=== PATIENT | male | born 1940 | race Caucasian/White ===

== ENCOUNTER 2016-07-29 10:38 | Outpatient (RCR) | payer OTHER ==
[~2016-07-29 10:38] MED LIST: ASPI1TAB PO; BACI500O8 TOP; JANU100T PO; LIPI20TA PO; NEUR300C PO; OMEP40CA2 PO; OXYC1TAB23 PO; STOO100C PO
== END 2016-08-10 ==
LOC: M ST 10:38
PROVIDERS: ATTEND Otolaryngology
DX: R13.10 Dysphagia, unspecified (principal)

== ENCOUNTER 2016-10-06 10:00 | Outpatient (RCR) | payer OTHER | END 2016-10-08 | LOC: M ST 10:00 | PROVIDERS: ATTEND Otolaryngology | DX: Z51.89 Encounter for other specified aftercare (principal); R13.10 Dysphagia, unspecified | CPT/HCPCS: 92526; G8996; G8997; G8998 ==

== ENCOUNTER → 2016-10-20 | Outpatient (REF) | payer OTHER, MEDICAID ==
[2016-10-20 12:20] LABS: ALBUMIN/GLOBULIN RATIO 1.43 (1.00-1.93); ALKALINE PHOSPHATASE 91 U/L (45-117); ALT/SGPT 16 U/L (12-78); ANION GAP 5 MEQ/L (8-16); AST/SGOT 17 U/L (15-37); BILIRUBIN,TOTAL 0.6 MG/DL (0.2-1.0); BLOOD UREA NITROGEN 17 MG/DL (7-18); CALCIUM LEVEL 8.6 MG/DL (8.8-10.2); CARBON DIOXIDE LEVEL 32 MEQ/L (21-32); CHLORIDE LEVEL 102 MEQ/L (98-107); CHOLESTEROL LEVEL 131 MG/DL (<200); CREATININE FOR GFR 0.72 MG/DL (0.70-1.30); GLOMERULAR FILTRATION RATE > 60.0 (>42); GLUCOSE, FASTING 191 MG/DL (83-110); POTASSIUM SERUM 4.2 MEQ/L (3.5-5.1); SODIUM LEVEL 139 MEQ/L (136-145); TOTAL PROTEIN 6.8 GM/DL (6.4-8.2); TRIGLYCERIDES LEVEL 98 MG/DL (<150)
== END ==
LOC: M SFHCCLAY 09:34
PROVIDERS: ATTEND Family Medicine
DX: E11.65 Type 2 diabetes mellitus with hyperglycemia (principal); Z12.5 Encounter for screening for malignant neoplasm of prostate; I10 Essential (primary) hypertension
CPT/HCPCS: 80053; 80061; 83036; 84443; G0103

== ENCOUNTER 2016-11-03 10:00 | Outpatient (RCR) | payer OTHER | END 2016-11-07 | disposition home or self-care (01) | LOC: M ST 10:00 | PROVIDERS: ATTEND Otolaryngology | DX: Z51.89 Encounter for other specified aftercare (principal); R13.10 Dysphagia, unspecified | CPT/HCPCS: 92526; G8996; G8997 ==

== ENCOUNTER 2016-11-08 11:14 | Outpatient (RCR) | payer OTHER | END 2016-12-08 | LOC: M ST 11:14 | PROVIDERS: ATTEND Otolaryngology | DX: Z51.89 Encounter for other specified aftercare (principal); R13.10 Dysphagia, unspecified | CPT/HCPCS: 92526; G8996; G8997; G8998 ==

== ENCOUNTER → 2016-11-11 | Outpatient (CLI) | payer OTHER ==
[~2016-11-11] MED LIST changes: +E-Z-PAQUE 96% w/w SUSP 176GM BTL As Ordered ONE; +VARIBAR NECTAR 40% w/v 240ML SUSP BTL As Ordered ONE; +VARIBAR PUDDING 40% w/v 230ML TUBE As Ordered ONE
--- NOTE | 2016-11-11 18:09 | REP ---
COOKIE SWALLOW: The procedure was performed under the direct supervision of Dr. Vazquez. The procedure was performed with Steffanie Julio from speech pathology present. 5 mL aliquots of nectar, pudding, solid and thin consistency barium was administered. With thin consistency barium there is penetration. A detailed report of this examination will be provided by speech pathology. 1 minute and 13 seconds of fluoroscopy time was utilized for this procedure. Reviewed by VERNON Silverio 11/12/2016 08:26 AEdited and Signed by Jamison Vazquez MD 11/12/2016 05:08 P
== END ==
LOC: M ST 08:54
PROVIDERS: ATTEND Otolaryngology
DX: R13.10 Dysphagia, unspecified (principal); R93.3 Abnormal findings on diagnostic imaging of other parts of digestive tract
CPT/HCPCS: 74230; 92611; G8996; G8997; G8998

== ENCOUNTER → 2016-12-15 | Outpatient (REF) | payer OTHER ==
[~2016-12-15] MED LIST changes: -E-Z-PAQUE 96% w/w SUSP 176GM BTL As Ordered ONE; -VARIBAR NECTAR 40% w/v 240ML SUSP BTL As Ordered ONE; -VARIBAR PUDDING 40% w/v 230ML TUBE As Ordered ONE
[2016-12-15 11:35] LABS: MEAN CORPUSCULAR HEMOGLOBIN 31.6 pg (27.0-33.0); MEAN CORPUSCULAR HGB CONC 33.5 g/dl (32.0-36.5); MEAN CORPUSCULAR VOLUME 94.4 fl (80.0-96.0); RED CELL DISTRIBUTION WIDTH 13.1 % (11.5-14.5); WHITE BLOOD COUNT 4.8 K/mm3 (4.0-10.0)
[2016-12-15 12:52] LABS: ALBUMIN/GLOBULIN RATIO 1.43 (1.00-1.93); ALKALINE PHOSPHATASE 88 U/L (45-117); ALT/SGPT 20 U/L (12-78); ANION GAP 3 MEQ/L (8-16); AST/SGOT 15 U/L (15-37); BILIRUBIN,TOTAL 0.6 MG/DL (0.2-1.0); BLOOD UREA NITROGEN 15 MG/DL (7-18); CALCIUM LEVEL 8.7 MG/DL (8.8-10.2); CARBON DIOXIDE LEVEL 34 MEQ/L (21-32); CHLORIDE LEVEL 100 MEQ/L (98-107); CHOLESTEROL LEVEL 153 MG/DL (<200); CREATININE FOR GFR 0.71 MG/DL (0.70-1.30); GLOMERULAR FILTRATION RATE > 60.0 (>42); GLUCOSE, FASTING 161 MG/DL (83-110); POTASSIUM SERUM 4.7 MEQ/L (3.5-5.1); SODIUM LEVEL 137 MEQ/L (136-145); TOTAL PROTEIN 6.8 GM/DL (6.4-8.2); TRIGLYCERIDES LEVEL 87 MG/DL (<150)
== END ==
LOC: M LABDRAWC 11:21
PROVIDERS: ATTEND Physician Assistant
DX: I25.10 Atherosclerotic heart disease of native coronary artery without angina pectoris (principal); I10 Essential (primary) hypertension; E78.00 Pure hypercholesterolemia, unspecified

== ENCOUNTER → 2017-09-12 | Outpatient (CLI) | payer OTHER, MEDICAID | LOC: M CLY 13:57 | DX: M26.69 Other specified disorders of temporomandibular joint (principal); M26.622 Arthralgia of left temporomandibular joint | CPT/HCPCS: 70330; G0463 ==

== ENCOUNTER 2017-10-19 11:24 | Day surgery (SDC) | payer OTHER, MEDICAID ==
[2017-10-19 11:49] LABS: BEDSIDE GLUCOSE 168 MG/DL (83-110)
[2017-10-19] MEDS ORDERED: NS 1,000 ML IV (12:00)
[2017-10-19] MEDS ORDERED: LIDOCAINE 2% INJ 100 MG/5 ML SDV (FOR ANES.) As Ordered (12:16)
[2017-10-19] MEDS ORDERED: PROPOFOL 200 MG/20 ML VIAL As Ordered (12:16)
[2017-10-19] MEDS ORDERED: PHENYLephrine HCL 500 MCG/5 ML (100MCG/ML) SYRINGE (J2370) As Ordered (12:27)
== END 2017-10-19 13:30 | disposition home or self-care (01) ==
LOC: M OPP 11:24
DX: Z12.11 Encounter for screening for malignant neoplasm of colon (principal); Z86.010 Personal history of colon polyps; D12.2 Benign neoplasm of ascending colon; D12.5 Benign neoplasm of sigmoid colon; K64.0 First degree hemorrhoids; K57.30 Diverticulosis of large intestine without perforation or abscess without bleeding; R00.8 Other abnormalities of heart beat; R94.31 Abnormal electrocardiogram [ECG] [EKG]; Z95.5 Presence of coronary angioplasty implant and graft; I48.91 Unspecified atrial fibrillation; I10 Essential (primary) hypertension; E78.5 Hyperlipidemia, unspecified; I25.10 Atherosclerotic heart disease of native coronary artery without angina pectoris; E11.9 Type 2 diabetes mellitus without complications; K21.9 Gastro-esophageal reflux disease without esophagitis; M54.9 Dorsalgia, unspecified; Z79.82 Long term (current) use of aspirin; Z79.899 Other long term (current) drug therapy; Z79.84 Long term (current) use of oral hypoglycemic drugs; Z79.01 Long term (current) use of anticoagulants; Z88.5 Allergy status to narcotic agent; Z88.0 Allergy status to penicillin; Z87.891 Personal history of nicotine dependence
CPT/HCPCS: 45385

== ENCOUNTER → 2017-11-17 | Outpatient (REF) | payer OTHER, MEDICAID ==
[2017-11-17 12:55] LABS: ALBUMIN/GLOBULIN RATIO 1.38 (1.00-1.93); ALKALINE PHOSPHATASE 104 U/L (45-117); ALT/SGPT 21 U/L (12-78); ANION GAP 6 MEQ/L (8-16); AST/SGOT 20 U/L (7-37); BILIRUBIN,TOTAL 0.8 MG/DL (0.2-1.0); BLOOD UREA NITROGEN 15 MG/DL (7-18); CALCIUM LEVEL 8.5 MG/DL (8.8-10.2); CARBON DIOXIDE LEVEL 31 MEQ/L (21-32); CHLORIDE LEVEL 99 MEQ/L (98-107); CREATININE FOR GFR 0.83 MG/DL (0.70-1.30); GLOMERULAR FILTRATION RATE > 60.0 (>42); GLUCOSE, FASTING 361 MG/DL (70-100); POTASSIUM SERUM 4.3 MEQ/L (3.5-5.1); SODIUM LEVEL 136 MEQ/L (136-145); TOTAL PROTEIN 6.9 GM/DL (6.4-8.2)
[2017-11-17 13:27] LABS: ESTIMATED AVERAGE GLUCOSE 235 MG/DL (60-110); HEMOGLOBIN A1c 9.8 %
== END ==
LOC: M SFHCCLAY 09:03
DX: E11.9 Type 2 diabetes mellitus without complications (principal)
CPT/HCPCS: 80053

== ENCOUNTER → 2018-01-24 | Outpatient (REF) | payer OTHER, MEDICAID ==
[2018-01-24 17:13] LABS: HEMATOCRIT 37.8 % (42.0-52.0); HEMOGLOBIN 12.5 g/dl (13.5-17.5); MEAN CORPUSCULAR HGB CONC 33.1 g/dl (32.0-36.5); MEAN CORPUSCULAR VOLUME 93.8 fl (80.0-96.0); PLATELET COUNT, AUTOMATED 125 10^3/uL (150-450); RED BLOOD COUNT 4.03 10^6/uL (4.30-6.10); RED CELL DISTRIBUTION WIDTH 13.5 % (11.5-14.5); WHITE BLOOD COUNT 6.2 10^3/uL (4.0-10.0)
== END ==
LOC: M LABDRAWC 16:19
DX: I48.2 Chronic atrial fibrillation (principal)
CPT/HCPCS: 85027

== ENCOUNTER 2018-02-06 09:56 | Outpatient (RCR) | payer OTHER, MEDICAID | END 2018-02-07 | disposition home or self-care (01) | LOC: M ST 09:56 | DX: R49.0 Dysphonia (principal); B02.29 Other postherpetic nervous system involvement | CPT/HCPCS: 92507 ==

== ENCOUNTER → 2018-02-10 | Outpatient (CLI) | payer OTHER, MEDICAID | LOC: M ST 11:29 | DX: K21.9 Gastro-esophageal reflux disease without esophagitis (principal) | CPT/HCPCS: 74230 ==

== ENCOUNTER 2018-02-15 08:42 | Outpatient (RCR) | payer OTHER, MEDICAID | END 2018-03-10 | LOC: M ST 08:42 | DX: R49.0 Dysphonia (principal) | CPT/HCPCS: 92507 ==

== ENCOUNTER → 2018-04-03 | Outpatient (REF) | payer OTHER, MEDICAID ==
[2018-04-03 17:38] LABS: ALBUMIN 3.6 GM/DL (3.2-5.2); ALBUMIN/GLOBULIN RATIO 1.09 (1.00-1.93); ALKALINE PHOSPHATASE 110 U/L (45-117); ALT/SGPT 23 U/L (12-78); ANION GAP 9 MEQ/L (8-16); AST/SGOT 21 U/L (7-37); BILIRUBIN,TOTAL 0.6 MG/DL (0.2-1.0); BLOOD UREA NITROGEN 22 MG/DL (7-18); CALCIUM LEVEL 8.8 MG/DL (8.8-10.2); CARBON DIOXIDE LEVEL 28 MEQ/L (21-32); CHLORIDE LEVEL 96 MEQ/L (98-107); CHOLESTEROL LEVEL 112 MG/DL (<200); CHOLESTEROL RISK RATIO 3.027 (<5); CREATININE FOR GFR 0.98 MG/DL (0.70-1.30); GLOMERULAR FILTRATION RATE > 60.0 (>35); GLUCOSE, FASTING 336 MG/DL (70-100); HDL CHOLESTEROL 37 MG/DL (>40); LDL CHOLESTEROL 50 MG/DL (<100); MAGNESIUM LEVEL 1.6 MG/DL (1.8-2.4); NON-HDL-C 75 MG/DL; SODIUM LEVEL 133 MEQ/L (136-145); THYROXINE (T4) 8.2 UG/DL (4.5-12.0); TOTAL PROTEIN 6.9 GM/DL (6.4-8.2); TRIGLYCERIDES LEVEL 123 MG/DL (<150)
[2018-04-03 18:39] LABS: BASO % 0.4 % (0.0-1.0); EOS # 0.3 10^3/uL (0.0-0.50); EOS % 3.9 % (0.0-3.0); HEMATOCRIT 39.2 % (42.0-52.0); IMMATURE GRANULOCYTE % 0.7 % (0-3.0); LYMPH # 1.3 10^3/uL (1.5-4.5); LYMPH % 18.9 % (24.0-44.0); MEAN CORPUSCULAR HEMOGLOBIN 30.6 pg (27.0-33.0); MEAN CORPUSCULAR HGB CONC 33.2 g/dl (32.0-36.5); MEAN CORPUSCULAR VOLUME 92.2 fl (80.0-96.0); MONO # 0.6 10^3/uL (0.0-0.8); NEUTROPHILS # 4.8 10^3/uL (1.8-7.7); NEUTROPHILS % 68.1 % (36.0-66.0); PLATELET COUNT, AUTOMATED 316 10^3/uL (150-450); RED BLOOD COUNT 4.25 10^6/uL (4.30-6.10); RED CELL DISTRIBUTION WIDTH 12.5 % (11.5-14.5)
[2018-04-03 20:29] LABS: ESTIMATED AVERAGE GLUCOSE 240 MG/DL (60-110)
== END ==
LOC: M SFHCCLAY 10:51
DX: I10 Essential (primary) hypertension (principal); R63.4 Abnormal weight loss; E11.9 Type 2 diabetes mellitus without complications
CPT/HCPCS: 83735

== ENCOUNTER → 2018-07-13 | Outpatient (REF) | payer MEDICARE, MEDICAID ==
[~2018-07-13] MED LIST changes: +XARE20TA PO
[2018-07-13 12:17] LABS: ALBUMIN 4.2 GM/DL (3.2-5.2); ALT/SGPT 17 U/L (12-78); BLOOD UREA NITROGEN 9 MG/DL (7-18); CALCIUM LEVEL 9.2 MG/DL (8.8-10.2); CARBON DIOXIDE LEVEL 34 MEQ/L (21-32); CHLORIDE LEVEL 94 MEQ/L (98-107); CREATININE FOR GFR 0.64 MG/DL (0.70-1.30); GLOMERULAR FILTRATION RATE > 60.0 (>35); GLUCOSE, FASTING 153 MG/DL (70-100); POTASSIUM SERUM 4.4 MEQ/L (3.5-5.1); SODIUM LEVEL 133 MEQ/L (136-145); TOTAL PROTEIN 7.1 GM/DL (6.4-8.2)
[2018-07-13 12:18] LABS: HEMOGLOBIN A1c 9.1 %
== END ==
LOC: M SFHCCLAY 08:01
PROVIDERS: ATTEND Family Medicine
DX: E11.65 Type 2 diabetes mellitus with hyperglycemia (principal)
CPT/HCPCS: 80053; 83036; G0463

== ENCOUNTER → 2018-10-09 | Outpatient (REF) | payer MEDICARE, MEDICAID ==
[2018-10-09 17:14] LABS: BASO % 0.4 % (0.0-1.0); EOS # 0.3 10^3/uL (0.0-0.50); EOS % 5.4 % (0.0-3.0); HEMATOCRIT 39.9 % (42.0-52.0); HEMOGLOBIN 12.8 g/dl (13.5-17.5); LYMPH # 1.5 10^3/uL (1.5-4.5); LYMPH % 30.2 % (24.0-44.0); MEAN CORPUSCULAR HEMOGLOBIN 30.6 pg (27.0-33.0); MEAN CORPUSCULAR HGB CONC 32.1 g/dl (32.0-36.5); MEAN CORPUSCULAR VOLUME 95.5 fl (80.0-96.0); MONO # 0.5 10^3/uL (0.0-0.8); MONO % 9.1 % (0.0-5.0); NEUTROPHILS # 2.8 10^3/uL (1.8-7.7); NEUTROPHILS % 54.5 % (36.0-66.0); PLATELET COUNT, AUTOMATED 151 10^3/uL (150-450); RED BLOOD COUNT 4.18 10^6/uL (4.30-6.10)
[2018-10-09 17:22] LABS: ALT/SGPT 29 U/L (12-78); BILIRUBIN,TOTAL 0.7 MG/DL (0.2-1.0); BLOOD UREA NITROGEN 19 MG/DL (7-18); CALCIUM LEVEL 8.6 MG/DL (8.8-10.2); CARBON DIOXIDE LEVEL 32 MEQ/L (21-32); CHLORIDE LEVEL 100 MEQ/L (98-107); CREATININE FOR GFR 0.72 MG/DL (0.70-1.30); FOLATE > 24.0 NG/ML (>5.4); GLOMERULAR FILTRATION RATE > 60.0 (>35); GLUCOSE, FASTING 168 MG/DL (70-100); IRON (FE) 69 UG/DL (65-175); POTASSIUM SERUM 4.6 MEQ/L (3.5-5.1); SODIUM LEVEL 137 MEQ/L (136-145); TOTAL PROTEIN 6.8 GM/DL (6.4-8.2)
[2018-10-10 14:03] LABS: VITAMIN B12 LEVEL 400 PG/ML (247-911)
== END ==
LOC: M SFHCCLAY 08:58
PROVIDERS: ATTEND Family Medicine
DX: D64.9 Anemia, unspecified (principal); I10 Essential (primary) hypertension; E11.65 Type 2 diabetes mellitus with hyperglycemia

== ENCOUNTER 2019-02-16 07:56 | Inpatient (IN) | payer MEDICARE, MEDICAID ==
[~2019-02-16] VITALS: Ht 180.3 cm; Wt 71.5 kg
[~2019-02-16 07:56] MED LIST changes: -ASPI1TAB PO; +ASPI81TA26 PO; +MM S100C PO; -STOO100C PO
[2019-02-16] MEDS ORDERED: METF500T4 PO (08:11)
--- NOTE | 2019-02-16 08:46 | REP ---
PORTABLE CHEST, ONE VIEW: HISTORY: Cough. COMPARISON: 01/09/2016. There is elevation of the right hemidiaphragm. Parenchymal densities are present in the left lower lobe consistent with atelectasis or infiltrate. The right lung is clear. The cardiac silhouette is enlarged. The pulmonary vasculature is normal in appearance. IMPRESSION: 1. Left lower lobe atelectasis or infiltrate. 2. Cardiomegaly. Electronically Signed by Joshua Lemus MD 02/16/2019 09:03 A
[2019-02-16 08:50] LABS: BASO % 0.6 % (0.0-1.0); EOS # 0.2 10^3/uL (0.0-0.50); EOS % 3.5 % (0.0-3.0); HEMOGLOBIN 13.5 g/dl (13.5-17.5); LYMPH # 1.1 10^3/uL (1.5-4.5); LYMPH % 20.7 % (24.0-44.0); MEAN CORPUSCULAR HEMOGLOBIN 31.8 pg (27.0-33.0); MEAN CORPUSCULAR HGB CONC 33.8 g/dl (32.0-36.5); MEAN CORPUSCULAR VOLUME 94.3 fl (80.0-96.0); MONO # 0.4 10^3/uL (0.0-0.8); NEUTROPHILS # 3.6 10^3/uL (1.8-7.7); PLATELET COUNT, AUTOMATED 156 10^3/uL (150-450); RED BLOOD COUNT 4.24 10^6/uL (4.30-6.10); WHITE BLOOD COUNT 5.4 10^3/uL (4.0-10.0)
[2019-02-16 09:20] LABS: BLOOD UREA NITROGEN 15 MG/DL (7-18); CALCIUM LEVEL 8.9 MG/DL (8.8-10.2); CARBON DIOXIDE LEVEL 33 MEQ/L (21-32); CHLORIDE LEVEL 98 MEQ/L (98-107); CK-MB VALUE MASS 2.5 NG/ML (<3.6); CPK CREATINE PHOSPHOKINASE 120 U/L (39-308); CREATININE FOR GFR 0.78 MG/DL (0.70-1.30); GLOMERULAR FILTRATION RATE > 60.0 (>35); GLUCOSE, FASTING 161 MG/DL (70-100); MB/CK RELATIVE INDEX 2.08 (< OR =4); NT-PRO BNP 1507 PG/ML (<450); POTASSIUM SERUM 4.4 MEQ/L (3.5-5.1); SODIUM LEVEL 135 MEQ/L (136-145); TROPONIN I 0.02 NG/ML (< 0.10)
[2019-02-16] MEDS ORDERED: FUROSEMIDE 40 MG/4 ML VIAL (J1940) IV ONE (09:30)
[2019-02-16] MEDS ORDERED: cefTRIAXone SOD 2 GM in D5W MINI-BAG PLUS 50 ML IV ONE (10:30)
[2019-02-16] MEDS ORDERED: PERC5TAB12 PO (10:54)
[2019-02-16] MEDS ORDERED: ACETAMINOPHEN TAB 650MG DOSE (2X325MG) PO PRN (11:30)
--- NOTE | 2019-02-16 11:59 | REP ---
CT CHEST WITHOUT CONTRAST: 02/16/2019. Comparison: AP portable chest 02/16/2019, chest x-ray 01/09/2016. Clinical history: Possible infiltrate on portable chest. Dyspnea, cough. Findings: Standard noncontrast technique utilized. Heavy Equipment Technician image shows elevation of the left diaphragm as on previous chest x-rays. Lungs are hyperinflated. There is peripheral subpleural fibrotic change bilaterally with some degree of COPD. Patchy basilar atelectatic changes in the deep sulcus of the right lower lobe less on the left. There are heavily calcified pleural plaques along the bilateral diaphragmatic pleura. There are other scattered calcified plaques along the right upper chest wall. There are a few scattered calcifications in the parenchyma. I see no definite pleural effusion on the left. There is a small pleural effusion on the right. There is some peribronchial thickening representing some reactive airway disease or bronchitis. No pneumothorax or pneumomediastinum. Heart is enlarged with left atrial and left ventricular enlargement. There are coronary artery calcifications and calcifications of the aortic valve plane, ascending arch and descending aorta. Focal aneurysmal dilatation laterally at the aortic arch with maximum transverse diameter of the aortic arch 4.8 cm on image 34 of series 201. No evidence of mediastinal hematoma. There are subcentimeter lymph nodes in the mediastinum in the precarinal, right paratracheal and subcarinal regions, AP window nodes up to a centimeter are noted. Subcentimeter nodes in the y[place]. No axillary or supraclavicular mass identified. Bone windows show degenerative changes spine and shoulders without destructive lesion. No visible fractures on an acute basis. Upper abdomen shows elevation of the right diaphragm. The visualized portion of liver was intact. The spleen shows calcifications from old granulomas disease. Impression: 1. COPD with some peripheral fibrotic changes and patchy basilar infiltrates or atelectasis left greater than right. Small right base effusion. 2. Peribronchial thickening bilaterally suggestive of bronchitis or reactive airway disease. Old granulomatous disease. 3. Some cardiomegaly with left atrial and left ventricular enlargement along with coronary artery and aortic calcifications. 4. Aneurysmal focal dilatation. The aortic arch of the 4.8 cm in transverse diameter. There is a focal saccular component best seen on image 34, axial view. 5. 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 Elevated right diaphragm, chronic. Electronically Signed by Galo Chavira MD 02/16/2019 03:06 P
--- NOTE | 2019-02-16 12:54 | REP ---
CT ABDOMEN AND PELVIS WITHOUT CONTRAST: 02/16/2019. Comparison: CT 09/12/2006. Clinical history: Possible small bowel obstruction. Findings: No oral or IV contrast utilized. CT abdomen: Elevated right diaphragm again seen. No definite hiatal hernia. Bilateral calcified pleural plaques on the diaphragmatic surface. Numerous calcifications scattered in the spleen from old granulomas disease. Heavy vascular calcifications in the splenic artery. Scattered calcifications in the aorta and other branches. Liver not grossly enlarged. No focal hepatic mass or intrahepatic biliary dilatation. Gallbladder without calcified stone or mass. Pancreas without a definite calcification. Pancreatic duct less than 3 mm in the neck and body of the pancreas. No adjacent inflammatory change. Stomach only trace amount of fluid within. Lung window review of all CT slices shows no sign of perforation, free air or abscess. Gas filled colon throughout the upper abdomen most small bowel loops are fluid filled but not abnormally dilated. No ventral or inguinal hernia. No definite inflammatory changes to suggest colitis or diverticulitis. The aorta is without aneurysm. Adrenal glands were normal. The kidneys are without hydronephrosis. An extrarenal pelvis noted on the left. No renal or pelvic stones and no definite ureteral stone. Bone windows show advanced degenerative disc changes of the lumbar spine less severe thoracic region. No compression deformity or spondylolysis. Visualized lower ribs without acute fracture. An old healed set of fractures on the left from the T9-T11 level. CT pelvis: SI joints with degenerative changes. There is some bilateral hip arthritis. Soft tissues suggest bilateral hip effusions and fluid extending in bursal recesses anterior and above the left hip. No pelvic or abdominal free fluid or free air. Bladder with no stone, mass or wall thickening. A few calcifications in the prostate. No ventral or inguinal hernia nor pathologic inguinal adenopathy. No pelvic lymphadenopathy. No inflammatory changes about the cecum. Impression: 1. Findings suggest ileus with air filled colon without abnormal distension and with mostly fluid-filled small bowel loops not distended. No sign of obstruction. No free air or abscess. No definite colitis or diverticulitis. 2. Bilateral hip joint effusions and this appears left greater than right. Bursal fluid extension above the left hip. 3. Degenerative changes in the spine. Old granulomatous disease with calcifications in the spleen. Diaphragmatic calcified pleural plaques. 4. No gross abnormalities of the pancreas or gallbladder by CT. Electronically Signed by Galo Chavira MD 02/16/2019 03:06 P
[2019-02-16] MEDS ORDERED: DEXTROSE 50% 50 ML SYRINGE IV PRN (17:00)
[2019-02-16] MEDS ORDERED: PERCOCET 5MG/325MG TAB PO PRN (17:00)
[2019-02-16] MEDS ORDERED: GLUCOSE 4 GM CHEW TABLET PO PRN (17:00)
[2019-02-16] MEDS ORDERED: GLUCAGON FOR INJ 1 MG VIAL (J1610) SC PRN (17:00)
[2019-02-16] MEDS: FUROSEMIDE 40 MG/4 ML VIAL (J1940) IV SCH (17:02)
--- NOTE | 2019-02-16 17:03 | HPEPDOC ---
General Date of Admission Feb 16, 2019 at 11:18 Date of Service: Feb 16, 2019 Chief Complaint The patient is a 78-year-old male admitted with a reason for visit of Acute Chf. History of Present Illness 78-year-old male with past medical history of atrial fibrillation, coronary artery disease, arthritis, dyslipidemia, diabetes mellitus, GERD presented to the ER with a chief complaint of shortness of breath. The patient states he woke up this morning and felt short of breath. He denied any cough, congestion, sputum production. He also denied any increased lower extremity swelling, chest pain, palpitations, abdominal pain, or any nausea/vomiting/diarrhea. He states that he did notice some weight gain and fluid retention and denies any history of the same. In the ER, a CT scan of the chest revealed possible bronchitis and right sided patchy infiltrate. Also of note, there was some cardiomegaly noted as well. On examination, the patient does seem to have some crackles at the bases bilaterally and does appear to be fluid overloaded is also evidence by his BNP marker. The patient will be admitted to the hospitalist service for further evaluation and management. Home Medications Scheduled Metformin HCl (Metformin HCl ER) 500 Mg Tab.er.24h, 500 MG PO BID, (Reported) Rivaroxaban (Xarelto) 20 Mg Tab, 20 MG PO DAILY, (Reported) Scheduled PRN Oxycodone HCl/Acetaminophen (Percocet 5-325 mg Tablet) 1 Each Tablet, 1 TAB PO Q4H PRN for PAIN, (Reported) Allergies Coded Allergies: No Known Allergies (Unverified , 10/17/17) Past Medical History Medical History As noted in HPI. Surgical History CARDIAC STENTS X 3 2006 TONSILECTOMY DEVIATED SEPTUM HERNIA REPAIR CIRCUMCISION L3-5 TRANSPEDICULAR DECOMPRESSION- DR. SNYDER 04/2015 THROAT SURGERY- DR. ESTEVEZ 03/2016 COLONOSCOPY- DR. MACK 09/21/2013,2018 Social History * Smoker: former Smoker Alcohol: Denies Drugs: denies Review of Systems Other systems 10 point review of systems negative unless otherwise specified in HPI. Physical Examination General Exam: Positive: Alert, Cooperative, No Acute Distress ENT Exam: Positive: Atraumatic, Mucous membr. moist/pink Chest Exam: Positive: Rales (bibasilar rales noted on auscultation bilaterally.), Diminished Abdomen Exam: Positive: Soft; Negative: Tenderness Extremity Exam: Negative: Tenderness, Swelling Psych Exam: Positive: Oriented x 3 Vital Signs Vital Signs Date Time Temp Pulse Resp B/P (MAP) Pulse Ox O2 Delivery O2 Flow Rate FiO2 02/16/19 16:00 69 18 171/99 (123) 02/16/19 15:45 95 Nasal Cannula 2.0 02/16/19 07:57 98.3 Laboratory Data Labs 24H Laboratory Tests 2 02/16/19 08:20: Immature Granulocyte % (Auto) 0.2, White Blood Count 5.4, Red Blood Count 4.24L, Hemoglobin 13.5, Hematocrit 40.0L, Mean Corpuscular Volume 94.3, Mean Corpuscular Hemoglobin 31.8, Mean Corpuscular Hemoglobin Concent 33.8, Red Cell Distribution Width 13.8, Platelet Count 156, Neutrophils (%) (Auto) 67.0H, Lymphocytes (%) (Auto) 20.7L, Monocytes (%) (Auto) 8.0H, Eosinophils (%) (Auto) 3.5H, Basophils (%) (Auto) 0.6, Neutrophils # (Auto) 3.6, Lymphocytes # (Auto) 1.1L, Monocytes # (Auto) 0.4, Eosinophils # (Auto) 0.2, Basophils # (Auto) 0.0, Nucleated Red Blood Cells % (auto) 0.0, Anion Gap 4L, Glomerular Filtration Rate > 60.0, Blood Urea Nitrogen 15, Creatinine 0.78, Sodium Level 135L, Potassium Level 4.4, Chloride Level 98, Carbon Dioxide Level 33H, Calcium Level 8.9, Total Creatine Kinase 120, Creatine Kinase MB 2.5, Creatine Kinase MB Relative Index 2.08, Troponin I 0.02, RW-Sgp-R-Type Natriuretic Peptide 1507H, Thyroid Stimulating Hormone (TSH) 2.040 02/16/19 09:07: Lactic Acid Level 0.9 CBC/BMP Laboratory Tests 02/16/19 08:20 Red Blood Count 4.24 L, Mean Corpuscular Volume 94.3, Mean Corpuscular Hemoglobin 31.8, Mean Corpuscular Hemoglobin Concent 33.8, Red Cell Distribution Width 13.8, Neutrophils (%) (Auto) 67.0 H, Lymphocytes (%) (Auto) 20.7 L, Monocytes (%) (Auto) 8.0 H, Eosinophils (%) (Auto) 3.5 H, Basophils (%) (Auto) 0.6, Neutrophils # (Auto) 3.6, Lymphocytes # (Auto) 1.1 L, Monocytes # (Auto) 0.4, Eosinophils # (Auto) 0.2, Basophils # (Auto) 0.0, Calcium Level 8.9, Total Creatine Kinase 120 Microbiology Microbiology 02/16/19 Blood Culture, Received Pending 02/16/19 Blood Culture, Received Pending Plan / VTE VTE Prophylaxis Ordered?: Yes Plan Plan Shortness of breath of multifactorial etiology Likely secondary to decompensated congestive heart failure, and possible right lower lobe pneumonia IV Lasix, fluid restriction, strict input/output ordered 2-D echocardiogram ordered We have also ordered blood cultures, and have started the patient on Rocephin/azithromycin for pneumonia coverage Pro-calcitonin level also ordered The patient did have some improvement of his shortness of breath after being given 1 dose of IV Lasix in the ER, he put out over 1 L of urine. We will continue to monitor the patient's respiratory/volume status History of diabetes mellitus Continue insulin sliding scale History of atrial fibrillation Continue Xarelto, not on a rate controlling agent Coronary artery disease Only on Xarelto, not on Statin, Beta Skyla? Follow up as outpatient Chronic pain Continue home med DVT prophylaxis TAMMI Palacio MD Feb 16, 2019 17:03
[2019-02-16] MEDS: HumaLOG INSULIN (NovoLOG) PER UNIT SC SCH (17:30)
[2019-02-16] MEDS ORDERED: AZITHROMYCIN INJ 500 MG, VIAL MATE ADAPTER 1 EACH in D5W 250 ML IV SCH (18:00)
[2019-02-16 18:15] VITALS: BP_SYST 164; BP_SYST 173; BP_DIAS 88; BP_DIAS 97
[2019-02-16 20:00] VITALS: BP 142/96
[2019-02-16] MEDS ORDERED: HumaLOG INSULIN (NovoLOG) PER UNIT SC SCH (21:00)
[2019-02-16] MEDS ORDERED: LIDOCAINE 5% (LIDODERM) PATCH TD SCH (21:00)
[2019-02-16 23:19] LABS: TROPONIN I < 0.02 NG/ML (< 0.10)
[2019-02-16 23:59] VITALS: BP 134/86
[2019-02-17 05:53] LABS: HEMATOCRIT 43.8 % (42.0-52.0); HEMOGLOBIN 14.8 g/dl (13.5-17.5); MEAN CORPUSCULAR HEMOGLOBIN 32.2 pg (27.0-33.0); MEAN CORPUSCULAR HGB CONC 33.8 g/dl (32.0-36.5); MEAN CORPUSCULAR VOLUME 95.4 fl (80.0-96.0); PLATELET COUNT, AUTOMATED 167 10^3/uL (150-450); RED BLOOD COUNT 4.59 10^6/uL (4.30-6.10); WHITE BLOOD COUNT 7.3 10^3/uL (4.0-10.0)
[2019-02-17 06:16] LABS: BLOOD UREA NITROGEN 15 MG/DL (7-18); CALCIUM LEVEL 9.2 MG/DL (8.8-10.2); CARBON DIOXIDE LEVEL 33 MEQ/L (21-32); CHLORIDE LEVEL 95 MEQ/L (98-107); CREATININE FOR GFR 0.73 MG/DL (0.70-1.30); GLOMERULAR FILTRATION RATE > 60.0 (>35); GLUCOSE, FASTING 172 MG/DL (70-100); MAGNESIUM LEVEL 1.8 MG/DL (1.8-2.4); POTASSIUM SERUM 3.7 MEQ/L (3.5-5.1); SODIUM LEVEL 134 MEQ/L (136-145)
[2019-02-17] MEDS ORDERED: RIVAROXABAN 20 MG TAB (XARELTO) PO SCH (08:00)
--- NOTE | 2019-02-17 08:22 | ECGEPIP ---
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
[2019-02-17] MEDS ORDERED: **NOTE PATIENT COMMENT** MISC XX SCH (09:00)
[2019-02-17] MEDS: HumaLOG INSULIN (NovoLOG) PER UNIT SC SCH (09:06)
[2019-02-17] MEDS: FUROSEMIDE 40 MG/4 ML VIAL (J1940) IV SCH (09:06)
--- NOTE | 2019-02-17 09:58 | ECHO ---
DATE OF PROCEDURE: 02/16/2019 AGE: 78 GENDER: Male. HEIGHT: 71 inches. WEIGHT: 176 pounds. BODY SURFACE AREA: 2.0 meters squared. LOCATION: Inpatient, currently in the emergency room. REFERRING PHYSICIAN: Dr. Williams Michaels INDICATION: Dyspnea. MEASUREMENTS: 2D MEASUREMENTS: RV - 4.4 cm LV - 5.1 cm Septum 1.4 cm Posterior wall 1.3 cm Aortic root 3.6 cm LA - 4.9 cm LVEF 45% DOPPLER MEASUREMENTS: AV - 1.88 m/s LVOT - 0.74 m/s LVOT diameter 2.2 cm MV-E 67 Early mitral deceleration time 148 ms E prime 4.8 E/E prime ratio 13.9 PCWP 14.8 PV - 0.6 m/s Pulmonary artery acceleration time 85 ms RVSP 40 - 45 mmHg COMMENTS: Underlying atrial fibrillation with controlled ventricular response. Left bundle branch block. M-mode and two-dimensional echocardiography was performed with pulsed, continuous wave, color flow and tissue Doppler studies. Mild concentric left ventricle hypertrophy with paradoxical septal wall motion abnormality due to left bundle branch block and at least moderate impairment of global resting systolic function. Moderately dilated left atrium with at least mildly elevated estimated mean left atrial pressure. Mildly dilated right ventricle with adequate free wall motion and Doppler evidence of at least moderate pulmonary hypertension. Moderately dilated right atrium, but I could not clearly visualize his inferior vena cava to accurately estimate his central venous pressure (by standard criteria we used 10 mmHg). Moderate aortic valvular sclerosis with reduced cusp separation suggestive of a degree of aortic stenosis with a very mild aortic insufficiency. Normal aortic root size. Mildly thickened mitral annulus with somewhat of a low flow appearance to mitral leaflet motion, but no prolapse and at least mild and possibly moderate mitral insufficiency. Normal appearing tricuspid valve with mild insufficiency. No apparent intracardiac mass or pericardial effusion.
--- NOTE | 2019-02-17 10:24 | ECGEPIP ---
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
[2019-02-17] MEDS ORDERED: cefTRIAXone SOD 1 GM in D5W MINI-BAG PLUS 50 ML IV SCH (11:00)
[2019-02-17] MEDS ORDERED: K-TA10TA2 PO (11:05)
[2019-02-17] MEDS ORDERED: LASI40TA9 PO (11:05)
[2019-02-17] MEDS ORDERED: CEFD1CAP8 PO (14:17)
--- NOTE | 2019-02-17 14:29 | DS.PDOC ---
Discharge Summary General Date of Admission Feb 16, 2019 at 11:18 Date of Discharge 02/17/19 Discharge Summary PROCEDURES PERFORMED DURING STAY: None. ADMITTING/DISCHARGE DIAGNOSES: Decompensated systolic congestive heart failure Possible Bronchitis/upper respiratory infection History of diabetes mellitus History of a fibrillation COMPLICATIONS/CHIEF COMPLAINT: Acute Chf. HISTORY OF PRESENT ILLNESS: . 78-year-old male with past medical history of atrial fibrillation, coronary artery disease, arthritis, dyslipidemia, diabetes mellitus, GERD presented to the ER with a chief complaint of shortness of breath. The patient states he woke up this morning and felt short of breath. He denied any cough, congestion, sputum production. He also denied any increased lower extremity swelling, chest pain, palpitations, abdominal pain, or any nausea/vomiting/diarrhea. He states that he did notice some weight gain and fluid retention and denies any history of the same. In the ER, a CT scan of the chest revealed possible bronchitis and right sided patchy infiltrate. Also of note, there was some cardiomegaly noted as well. On examination, the patient does seem to have some crackles at the bases bilatera lly and does appear to be fluid overloaded is also evidence by his BNP marker. The patient will be admitted to the hospitalist service for further evaluation and management. During hospitalization, the patient was given IV Lasix therapy. The patient diuresed a net negative of nearly 4 L and lost 10 pounds. The patient's volume and respiratory status significantly improved thereafter. A 2-D echocardiogram revealed moderately reduced left ventricular systolic ejection fraction of 45%, please see full report below. The patient was weaned off of supplemental oxygen, and seen and cleared by physical therapy. At this time, the patient states that he is feeling much better and is eager to return home. I counseled the patient about possibly staying another day for further volume optimization, however he tells me that he has a family reunion that he has to attend and has multiple members of his family that are sick that he needs to see, including people who are coming from out of town. I advised the patient to take 40 mg of Lasix by mouth daily, monitor his daily weights, adhere to fluid restriction, and follow- up with his primary care physician within 3-5 days. The patient could benefit f rom being started on an OLIVE inhibitor or ARB, however he will need to follow up with his PCP to further optimize HF therapy as we wanted to make sure that the patient's blood pressure can tolerate Lasix therapy. Beta damien therapy was held 2/2 low baseline HR (50s-60s). The patient has been instructed to return to the ER for any worsening of shortness of breath or any other acute emergency. DISCHARGE MEDICATIONS: Please see below. ALLERGIES: Please see below. PHYSICAL EXAMINATION ON DISCHARGE: VITAL SIGNS: Please see below. GENERAL: Awake, alert, oriented 4, in no acute distress HEENT: Normocephalic, atraumatic NECK: No JVD CARDIOVASCULAR EXAMINATION: Normal rate, normal S1, S2 RESPIRATORY EXAMINATION: Clear to auscultation bilaterally ABDOMINAL EXAMINATION: Soft, nontender, nondistended EXTREMITIES: No erythema, no tenderness, no edema LABORATORY DATA: Please see below. IMAGING: DATE OF PROCEDURE: 02/16/2019 AGE: 78 GENDER: Male. HEIGHT: 71 inches. WEIGHT: 176 pounds. BODY SURFACE AREA: 2.0 meters squared. LOCATION: Inpatient, currently in the emergency room. REFERRING PHYSICIAN: Dr. Williams Gabriel INDICATION: Dyspnea. MEASUREMENTS: 2D MEASUREMENTS: RV - 4.4 cm LV - 5.1 cm Septum 1.4 cm Posterior wall 1.3 cm Aortic root 3.6 cm LA - 4.9 cm LVEF 45% DOPPLER MEASUREMENTS: AV - 1.88 m/s LVOT - 0.74 m/s LVOT diameter 2.2 cm MV-E 67 Early mitral deceleration time 148 ms E prime 4.8 E/E prime ratio 13.9 PCWP 14.8 PV - 0.6 m/s Pulmonary artery acceleration time 85 ms RVSP 40 - 45 mmHg COMMENTS: Underlying atrial fibrillation with controlled ventricular response. Left bundle branch block. M-mode and two-dimensional echocardiography was performed with pulsed, continuous wave, color flow and tissue Doppler studies. Mild concentric left ventricle hypertrophy with paradoxical septal wall motion abnormality due to left bundle branch block and at least moderate impairment of global resting systolic function. Moderately dilated left atrium with at least mildly elevated estimated mean left atrial pressure. Mildly dilated right ventricle with adequate free wall motion and Doppler evidence of at least moderate pulmonary hypertension. Moderately dilated right atrium, but I could not clearly visualize his inferior vena cava to accurately estimate his central venous pressure (by standard criteria we used 10 mmHg). Moderate aortic valvular sclerosis with reduced cusp separation suggestive of a degree of aortic stenosis with a very mild aortic insufficiency. Normal aortic root size. Mildly thickened mitral annulus with somewhat of a low flow appearance to mitral leaflet motion, but no prolapse and at least mild and possibly moderate mitral insufficiency. Normal appearing tricuspid valve with mild insufficiency. No apparent intracardiac mass or pericardial effusion. PORTABLE CHEST, ONE VIEW: HISTORY: Cough. COMPARISON: 01/09/2016. There is elevation of the right hemidiaphragm. Parenchymal densities are present in the left lower lobe consistent with atelectasis or infiltrate. The right lung is clear. The cardiac silhouette is enlarged. The pulmonary vasculature is normal in appearance. IMPRESSION: 1. Left lower lobe atelectasis or infiltrate. 2. Cardiomegaly. CT CHEST WITHOUT CONTRAST: 02/16/2019. Comparison: AP portable chest 02/16/2019, chest x-ray 01/09/2016. Clinical history: Possible infiltrate on portable chest. Dyspnea, cough. Findings: Standard noncontrast technique utilized. Lip Reading Teacher image shows elevation of the left diaphragm as on previous chest x-rays. Lungs are hyperinflated. There is peripheral subpleural fibrotic change bilaterally with some degree of COPD. Patchy basilar atelectatic changes in the deep sulcus of the right lower lobe less on the left. There are heavily calcified pleural plaques along the bilateral diaphragmatic pleura. There are other scattered calcified plaques along the right upper chest wall. There are a few scattered calcifications in the parenchyma. I see no definite pleural effusion on the left. There is a small pleural effusion on the right. There is some peribronchial thickening representing some reactive airway disease or bronchitis. No pneumothorax or pneumomediastinum. Heart is enlarged with left atrial and left ventricular enlargement. There are coronary artery calcifications and calcifications of the aortic valve plane, ascending arch and descending aorta. Focal aneurysmal dilatation laterally at the aortic arch with maximum transverse diameter of the aortic arch 4.8 cm on image 34 of series 201. No evidence of mediastinal hematoma. There are subcentimeter lymph nodes in the mediastinum in the precarinal, right paratracheal and subcarinal regions, AP window nodes up to a centimeter are noted. Subcentimeter nodes in the yury. No axillary or supraclavicular mass identified. Bone windows show degenerative changes spine and shoulders without destructive lesion. No visible fractures on an acute basis. Upper abdomen shows elevation of the right diaphragm. The visualized portion of liver was intact. The spleen shows calcifications from old granulomas disease. Impression: 1. COPD with some peripheral fibrotic changes and patchy basilar infiltrates or atelectasis left greater than right. Small right base effusion. 2. Peribronchial thickening bilaterally suggestive of bronchitis or reactive airway disease. Old granulomatous disease. 3. Some cardiomegaly with left atrial and left ventricular enlargement along with coronary artery and aortic calcifications. 4. Aneurysmal focal dilatation. The aortic arch of the 4.8 cm in transverse diameter. There is a focal saccular component best seen on image 34, axial view. 5. 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 Elevated right diaphragm, chronic. CT ABDOMEN AND PELVIS WITHOUT CONTRAST: 02/16/2019. Comparison: CT 09/12/2006. Clinical history: Possible small bowel obstruction. Findings: No oral or IV contrast utilized. CT abdomen: Elevated right diaphragm again seen. No definite hiatal hernia. Bilateral calcified pleural plaques on the diaphragmatic surface. Numerous calcifications scattered in the spleen from old granulomas disease. Heavy vascular calcifications in the splenic artery. Scattered calcifications in the aorta and other branches. Liver not grossly enlarged. No focal hepatic mass or intrahepatic biliary dilatation. Gallbladder without calcified stone or mass. Pancreas without a definite calcification. Pancreatic duct less than 3 mm in the neck and body of the pancreas. No adjacent inflammatory change. Stomach only trace amount of fluid within. Lung window review of all CT slices shows no sign of perforation, free air or abscess. Gas filled colon throughout the upper abdomen most small bowel loops are fluid filled but not abnormally dilated. No ventral or inguinal hernia. No definite inflammatory changes to suggest colitis or diverticulitis. The aorta is without aneurysm. Adrenal glands were normal. The kidneys are without hydronephrosis. An extrarenal pelvis noted on the left. No renal or pelvic stones and no definite ureteral stone. Bone windows show advanced degenerative disc changes of the lumbar spine less severe thoracic region. No compression deformity or spondylolysis. Visualized lower ribs without acute fracture. An old healed set of fractures on the left from the T9-T11 level. CT pelvis: SI joints with degenerative changes. There is some bilateral hip arthritis. Soft tissues suggest bilateral hip effusions and fluid extending in bursal recesses anterior and above the left hip. No pelvic or abdominal free fluid or free air. Bladder with no stone, mass or wall thickening. A few calcifications in the prostate. No ventral or inguinal hernia nor pathologic inguinal adenopathy. No pelvic lymphadenopathy. No inflammatory changes about the cecum. Impression: 1. Findings suggest ileus with air filled colon without abnormal distension and with mostly fluid-filled small bowel loops not distended. No sign of obstruction. No free air or abscess. No definite colitis or diverticulitis. 2. Bilateral hip joint effusions and this appears left greater than right. Bursal fluid extension above the left hip. 3. Degenerative changes in the spine. Old granulomatous disease with calcifications in the spleen. Diaphragmatic calcified pleural plaques. 4. No gross abnormalities of the pancreas or gallbladder by CT. PROGNOSIS: Fair ACTIVITY: As tolerated. DIET: 2 g low sodium, 1800 mL fluid or strict a diet DISCHARGE PLAN: Home DISPOSITION: Home, Self-Care. DISCHARGE INSTRUCTIONS: I advised the patient to take 40 mg of Lasix by mouth daily, monitor his daily weights, adhere to fluid restriction, and follow-up with his primary care physician within 3-5 days. He has been instructed to return to the ER for any worsening of shortness of breath or any other acute emergency. DISCHARGE CONDITION: Stable. TIME SPENT ON DISCHARGE: Greater than 30 minutes. Vital Signs/I&Os Vital Signs Date Time Temp Pulse Resp B/P (MAP) Pulse Ox O2 Delivery O2 Flow Rate FiO2 02/17/19 10:02 93 02/17/19 08:00 98.6 59 18 2.0 02/16/19 23:59 134/86 (102) 02/16/19 18:00 Nasal Cannula I&O- Last 24 Hours up to 6 AM 02/17/19 06:00 Intake Total 50 ml Output Total 3895 ml Balance -3845 ml Laboratory Data Labs 24H Laboratory Tests 2 02/16/19 21:57: Bedside Glucose (Misc Panel) 147H 02/16/19 22:37: Troponin I < 0.02, Thyroid Stimulating Hormone (TSH) 4.210H 02/17/19 05:19: Nucleated Red Blood Cells % (auto) 0.0, Anion Gap 6L, Glomerular Filtration Rate > 60.0, Blood Urea Nitrogen 15, Creatinine 0.73, Sodium Level 134L, Potassium Level 3.7, Chloride Level 95L, Carbon Dioxide Level 33H, Calcium Level 9.2, Magnesium Level 1.8 CBC/BMP Laboratory Tests 02/17/19 05:19 Red Blood Count 4.59, Mean Corpuscular Volume 95.4, Mean Corpuscular Hemoglobin 32.2, Mean Corpuscular Hemoglobin Concent 33.8, Red Cell Distribution Width 13.7, Calcium Level 9.2 FSBS Laboratory Tests Test 02/16/19 21:57 Range/Units Bedside Glucose (Misc Panel) 147 83-110 MG/DL Microbiology Microbiology 02/16/19 Blood Culture - Preliminary, Resulted No growth after 24 hours . All specim... 02/16/19 Blood Culture - Preliminary, Resulted No growth after 24 hours . All specim... Discharge Medications Scheduled Cefdinir (Cefdinir) 300 Mg Capsule, 1 CAP PO BID Furosemide (Lasix) 40 Mg Tablet, 1 TAB PO DAILY Metformin HCl (Metformin HCl ER) 500 Mg Tab.er.24h, 500 MG PO BID, (Reported) Potassium Chloride (K-Tab ER) 10 Meq Tablet.er, 1 TAB PO DAILY Rivaroxaban (Xarelto) 20 Mg Tab, 20 MG PO DAILY, (Reported) Scheduled PRN Oxycodone HCl/Acetaminophen (Percocet 5-325 mg Tablet) 1 Each Tablet, 1 TAB PO Q4H PRN for PAIN, (Reported) Allergies Coded Allergies: No Known Allergies (Unverified , 10/17/17) WILLIAMS GABRIEL MD Feb 17, 2019 14:29
== END 2019-02-17 12:07 | disposition home or self-care (01) | DRG 293 ==
LOC: M ED 07:56 → M ED INP 11:18 → M PCU 18:14
PROVIDERS: ADMIT Internal Medicine; ATTEND Internal Medicine
DX: I50.23 Acute on chronic systolic (congestive) heart failure (principal); J40 Bronchitis, not specified as acute or chronic; I48.91 Unspecified atrial fibrillation; I25.10 Atherosclerotic heart disease of native coronary artery without angina pectoris; J06.9 Acute upper respiratory infection, unspecified; E78.5 Hyperlipidemia, unspecified; E11.9 Type 2 diabetes mellitus without complications; K21.9 Gastro-esophageal reflux disease without esophagitis; M19.90 Unspecified osteoarthritis, unspecified site; Z79.01 Long term (current) use of anticoagulants; Z79.84 Long term (current) use of oral hypoglycemic drugs; Z95.5 Presence of coronary angioplasty implant and graft; Z87.891 Personal history of nicotine dependence

== ENCOUNTER → 2019-03-29 | Outpatient (REF) | payer MEDICARE, MEDICAID ==
[~2019-03-29] MED LIST changes: +CEFD1CAP8 PO; +K-TA10TA2 PO; +LASI40TA9 PO; +METF-791 PO; +PERC5TAB12 PO
[2019-03-29 17:01] LABS: BLOOD UREA NITROGEN 26 MG/DL (7-18); CALCIUM LEVEL 9.2 MG/DL (8.8-10.2); CARBON DIOXIDE LEVEL 33 MEQ/L (21-32); CHLORIDE LEVEL 99 MEQ/L (98-107); CREATININE FOR GFR 0.86 MG/DL (0.70-1.30); GLOMERULAR FILTRATION RATE > 60.0 (>35); GLUCOSE, FASTING 189 MG/DL (70-100); POTASSIUM SERUM 4.4 MEQ/L (3.5-5.1); SODIUM LEVEL 138 MEQ/L (136-145)
[2019-03-29 17:17] LABS: HEMOGLOBIN A1c 8.5 %
== END ==
LOC: M SFHCCLAY 11:17
PROVIDERS: ATTEND Family Medicine
DX: E11.65 Type 2 diabetes mellitus with hyperglycemia (principal)
CPT/HCPCS: 80048; 83036; G0463

== ENCOUNTER → 2019-04-04 | Outpatient (CLI) | payer MEDICARE, MEDICAID ==
[2019-04-04 14:00] LABS: HEMATOCRIT 40.1 % (42.0-52.0); HEMOGLOBIN 13.7 g/dl (13.5-17.5); MEAN CORPUSCULAR HEMOGLOBIN 33.2 pg (27.0-33.0); MEAN CORPUSCULAR HGB CONC 34.2 g/dl (32.0-36.5); MEAN CORPUSCULAR VOLUME 97.1 fl (80.0-96.0); PLATELET COUNT, AUTOMATED 185 10^3/uL (150-450); RED BLOOD COUNT 4.13 10^6/uL (4.30-6.10)
[2019-04-04 14:15] LABS: INR 1.69; PROTHROMBIN TIME 19.6 SECONDS (11.8-14.0)
[2019-04-04 14:31] LABS: ALBUMIN 4.1 GM/DL (3.2-5.2); ALT/SGPT 24 U/L (12-78); BILIRUBIN,TOTAL 0.5 MG/DL (0.2-1.0); BLOOD UREA NITROGEN 21 MG/DL (7-18); CALCIUM LEVEL 9.2 MG/DL (8.8-10.2); CARBON DIOXIDE LEVEL 29 MEQ/L (21-32); CHLORIDE LEVEL 99 MEQ/L (98-107); CREATININE FOR GFR 0.88 MG/DL (0.70-1.30); GLOMERULAR FILTRATION RATE > 60.0 (>35); GLUCOSE, FASTING 106 MG/DL (70-100); POTASSIUM SERUM 4.2 MEQ/L (3.5-5.1); SODIUM LEVEL 137 MEQ/L (136-145); TOTAL PROTEIN 6.8 GM/DL (6.4-8.2)
[2019-04-04 14:48] LABS: ERYTHROCYTE SEDIMENTATION RATE 10 mm/hr (0-20)
--- NOTE | 2019-04-04 15:20 | REP ---
PA and lateral chest: Comparison is 01/09/2016. Lung andrade are clear. Cardiac size is normal. There is chronic elevation of the right hemidiaphragm, unchanged. There is a small volume of calcific pleural plaque over the right hemidiaphragm medially, unchanged. The yury, mediastinum, and skeletal structures are unremarkable. Impression: Chronic stable findings. Essentially negative PA and lateral chest. Electronically Signed by Jamison Deleon MD 04/04/2019 03:11 P
--- NOTE | 2019-04-05 21:11 | ECGEPIP ---
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
== END ==
LOC: M LAB 13:13
PROVIDERS: ATTEND Orthopaedic Surgery
DX: Z01.818 Encounter for other preprocedural examination (principal); I48.91 Unspecified atrial fibrillation; I44.4 Left anterior fascicular block; E11.9 Type 2 diabetes mellitus without complications; I51.9 Heart disease, unspecified; M19.011 Primary osteoarthritis, right shoulder

== ENCOUNTER → 2019-06-11 | Outpatient (REF) | payer MEDICARE, MEDICAID ==
[~2019-06-11] MED LIST changes: -OMEP40CA2 PO; +OMEP40CA97 PO
[2019-06-11 17:57] LABS: BLOOD UREA NITROGEN 20 MG/DL (7-18); CALCIUM LEVEL 9.3 MG/DL (8.8-10.2); CARBON DIOXIDE LEVEL 34 MEQ/L (21-32); CHLORIDE LEVEL 98 MEQ/L (98-107); CREATININE FOR GFR 0.85 MG/DL (0.70-1.30); GLOMERULAR FILTRATION RATE > 60.0 (>35); GLUCOSE, FASTING 232 MG/DL (70-100); POTASSIUM SERUM 4.3 MEQ/L (3.5-5.1); SODIUM LEVEL 138 MEQ/L (136-145)
== END ==
LOC: M LABDRAWC 16:08
PROVIDERS: ATTEND Physician Assistant
DX: I50.42 Chronic combined systolic (congestive) and diastolic (congestive) heart failure (principal)

== ENCOUNTER 2019-07-10 05:30 | Observation (INO) | payer MEDICARE, MEDICAID ==
[~2019-07-10] VITALS: Ht 188 cm; Wt 75.0 kg
[2019-07-10 06:10] LABS: BASO % 0.7 % (0.0-1.0); EOS # 0.2 10^3/uL (0.0-0.5); EOS % 4.1 % (0.0-3.0); HEMATOCRIT 45.1 % (42.0-52.0); LYMPH # 2.2 10^3/uL (1.5-5.0); LYMPH % 38.5 % (24.0-44.0); MEAN CORPUSCULAR HEMOGLOBIN 31.6 pg (27.0-33.0); MEAN CORPUSCULAR HGB CONC 33.3 g/dl (32.0-36.5); MEAN CORPUSCULAR VOLUME 94.9 fl (80.0-96.0); MONO # 0.4 10^3/uL (0.0-0.8); MONO % 7.9 % (0.0-5.0); NEUTROPHILS # 2.7 10^3/uL (1.5-8.5); NEUTROPHILS % 48.6 % (36.0-66.0); PLATELET COUNT, AUTOMATED 145 10^3/uL (150-450); RED BLOOD COUNT 4.75 10^6/uL (4.30-6.10); WHITE BLOOD COUNT 5.6 10^3/uL (4.0-10.0)
[2019-07-10] MEDS ORDERED: POTA10808 (06:12)
[2019-07-10] MEDS ORDERED: GLIM1TAB2 (06:12)
[2019-07-10] MEDS ORDERED: ECOT81TA5 PO (06:12)
[2019-07-10] MEDS ORDERED: FURO40TA2 (06:12)
[2019-07-10 06:27] LABS: INR 1.36; PROTHROMBIN TIME 16.5 SECONDS (11.8-14.0)
[2019-07-10] MEDS ORDERED: NS 1,000 ML IV ONE (06:30)
[2019-07-10] MEDS ORDERED: PIPERACILLIN/TAZOBACTAM SOD 3.375 GM in D5W MINI-BAG PLUS 50 ML IV ONE (06:30)
[2019-07-10 06:43] LABS: ALBUMIN 4.1 GM/DL (3.2-5.2); ALT/SGPT 22 U/L (12-78); BILIRUBIN,DIRECT 0.3 MG/DL (0.0-0.2); BLOOD UREA NITROGEN 22 MG/DL (7-18); CARBON DIOXIDE LEVEL 31 MEQ/L (21-32); CHLORIDE LEVEL 100 MEQ/L (98-107); CK-MB VALUE MASS 1.3 NG/ML (<3.6); CPK CREATINE PHOSPHOKINASE 72 U/L (39-308); CREATININE FOR GFR 0.77 MG/DL (0.70-1.30); GLOMERULAR FILTRATION RATE > 60.0 (>35); GLUCOSE, FASTING 112 MG/DL (70-100); LIPASE 951 U/L (73-393); MB/CK RELATIVE INDEX 1.81 (< OR =4); POTASSIUM SERUM 3.9 MEQ/L (3.5-5.1); SODIUM LEVEL 139 MEQ/L (136-145); TOTAL PROTEIN 7.2 GM/DL (6.4-8.2); TROPONIN I 0.02 NG/ML (< 0.10)
[2019-07-10] MEDS ORDERED: GLIM1TAB2 PO (06:44)
[2019-07-10] MEDS ORDERED: POTA10808 PO (06:44)
[2019-07-10] MEDS ORDERED: METF500T13 PO (06:44)
[2019-07-10] MEDS ORDERED: FURO40TA2 PO (06:44)
[2019-07-10] MEDS ORDERED: XARE20TA PO (06:44)
[2019-07-10] MEDS ORDERED: ASPI-161 PO (06:44)
[2019-07-10] MEDS ORDERED: ISOVUE-370 76% 100ML VIAL (Q9967) As Ordered ONE (06:45)
[2019-07-10] MEDS ORDERED: OXYC1TAB23 PO (06:45)
--- NOTE | 2019-07-10 07:19 | REP ---
Clinical: Chest pain. Comparison: 04/04/2019 Findings: Mediastinum and cardiac silhouette are stable and within normal limits. Lung andrade demonstrate chronic interstitial changes. There is free air below the diaphragm to suspect that the pneumoperitoneum and correlation is required. Skeletal structures appear stable. Impression: Pneumoperitoneum cannot be excluded and requires correlation. No focal consolidation. Electronically Signed by Ramírez Dc MD 07/10/2019 07:10 A
--- NOTE | 2019-07-10 08:13 | REPVR ---
PROCEDURE INFORMATION: Exam: CT Abdomen And Pelvis With Contrast Exam date and time: 07/10/2019 6:40 AM Age: 79 years old Clinical indication: Abdominal pain; Generalized; Additional info: Eval perf TECHNIQUE: Imaging protocol: Computed tomography of the abdomen and pelvis with intravenous contrast. Radiation optimization: All CT scans at this facility use at least one of these dose optimization techniques: automated exposure control; mA and/or kV adjustment per patient size (includes targeted exams where dose is matched to clinical indication); or iterative reconstruction. Contrast material: ISO; Contrast volume: 100 ml; Contrast route: AC; COMPARISON: CT ABD PELVIS W/O CONTRAST 02/16/2019 9:47 AM FINDINGS: Lungs: Interstitial thickening is seen peripherally in the visualized lung bases. There is a subpleural bleb in the right lung base. Pleural space: Calcified pleural plaques are seen bilaterally, most prominent at the bilateral diaphragmatic surfaces. Heart: A small amount of air is seen in the right atrium, likely related to venous injection. There is mild cardiomegaly. Liver: There are no focal liver lesions present. Gallbladder and bile ducts: The gallbladder is normal with no stones or biliary ductal dilation. Pancreas: There is mild dilation of the pancreatic duct measuring 5 mm, without significant change. Spleen: The spleen demonstrates punctate calcifications, consistent with remote granulomatous organism exposure. Adrenals: The adrenal glands are normal. Kidneys and ureters: The kidneys are unremarkable. Stomach and bowel: There is mild gaseous distention of the colon. There is gaseous distention and mild dilation of multiple small bowel loops. Few small bowel fluid levels are seen. Distal ileal loops appear nondilated. However, distinct transition point is not identified. Appendix: A normal appendix is identified. Intraperitoneal space: There is no free intraperitoneal air. There is no evidence of free intraperitoneal or pelvic fluid. Vasculature: There is severe atherosclerotic calcification of the coronary arteries. The visualized vasculature demonstrates moderate atherosclerotic disease. No aortic aneurysm. Lymph nodes: No lymphadenopathy is seen. Bladder: The bladder is mostly collapsed. No bladder stones are identified. Reproductive: The prostate gland and seminal vesicles are normal. Bones/joints: Degenerative endplate changes are seen at multiple levels in the visualized spine. There is facet arthropathy in the lumbar spine. There is a rightward convex curvature centered in the lumbar spine. Soft tissues: There is persistent elevation of the right diaphragm. There is low attenuation at the left iliopsoas muscle, which may be fluid in the iliopsoas bursa or related to the tendon, and appears smaller than on the prior exam. IMPRESSION: 1. Mild gaseous distention of small bowel and colon without a distinct transition point to indicate obstruction and without significant bowel wall thickening. 2. No free air or free fluid to indicate perforation. 3. Fluid associated with the left iliopsoas muscle/tendon, also seen previously and actually smaller than on the prior exam, which may be related bursal inflammation or tenosynovitis. 4. Bilateral calcified pleural plaques in the visualized lung bases. 5. Interstitial thickening again seen in the lung bases, consistent with chronic interstitial lung disease. Electronically signed by: Megan Buchanan On 07/10/2019 08:13:32 AM
[2019-07-10] MEDS ORDERED: METAL LOCK LOOP XX ONE (09:08)
[2019-07-10] MEDS ORDERED: NS 1,000 ML IV SCH (09:45)
[2019-07-10] MEDS ORDERED: PERCOCET 5MG/325MG TAB PO PRN (10:45)
[2019-07-10] MEDS ORDERED: GLUCAGON FOR INJ 1 MG VIAL (J1610) SC PRN (11:00)
[2019-07-10] MEDS ORDERED: DEXTROSE 50% 50 ML SYRINGE IV PRN (11:00)
[2019-07-10] MEDS ORDERED: GLUCOSE 4 GM CHEW TABLET PO PRN (11:00)
[2019-07-10 11:07] LABS: MAGNESIUM LEVEL 1.8 MG/DL (1.8-2.4)
[2019-07-10 12:00] VITALS: BP 136/83
[2019-07-10] MEDS: HumaLOG INSULIN (NovoLOG) PER UNIT SC SCH ×2 (12:00→17:20)
--- NOTE | 2019-07-10 13:57 | HPEPDOC ---
[facility] Medical History & Physical Date of Admission Jul 10, 2019 Date of Service: Jul 10, 2019 Attending Physician: ZACHARY ECHEVARRIA MD History and Physical CHIEF COMPLAINT: Arm numbness/elevated lipase HISTORY OF PRESENT ILLNESS: Patient is an 79 year old male who presented to the [facility] ER with complaint of sudden onset arm numbness. The patient stated that he awoke this morning with a feeling of numbness in his arms and hand. He denied any chest pain or pressure. He stated that he gradually got feeling in his arms and currently he has no numbness. He does state that he has numbness in his legs which is chronic from his diabetic neuropathy. Additionally the patient stated that over the last 3-4 days he has had decreased oral intake as he was having some abdominal pain that he described as diffuse and crampy. He stated that he has a history of constipation and today he has been passing a lot of gas. He states that today he has an appetite. He denies any nausea, vomiting, diarrhea. He denies any bloody stool or dark tarry stool. At the ER the patient was found to be vitally stable. He denied any complaint at the time of presentation. He has a chest x-ray which suggested a possible pneu moperitoneum although this was followed up with a CT of the abdomen and pelvis which demonstrated no free air or fluid. The patients CT demonstrated mild gaseous distention of small and colon without a distinct transition point to indicate obstruction and without significant bowel wall thickening. Laboratory evaluation was essentially normal with exception to an elevation in lipase of 951. Hospitalist service was consulted and the patient was admitted for further evaluation and management PAST MEDICAL HISTORY: 1. Hypertension 2. Atrial Fibrillation 3. 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 Abdominal Aortic Aneurysm 5. Coronary Artery Disease 6. GERD 7. Congestive Heart Failure PAST SURGICAL HISTORY: 1. Cardiac Stents x 3 in 2005 2. Tonsillectomy 3. Deviated Septum Repair 4. Hernia Repair 5. L3-L5 Transpedicular decompression in 2014 6. Throat surgery (Dr. Branham 03/2016) 7. Colonoscopy - Dr. 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 He is a former smoker. He started smoking at the age of 18 and quit approximately 25 years ago. He stated that he smoked 1/2 ppd. He denies any IV or illicit drug use. He admits to alcohol use on occasion. FAMILY HISTORY: Patient has a brother with Parkinson disease. He has a sister with dementia. ALLERGIES: Please see below. REVIEW OF SYSTEMS: CONSTITUTIONAL: Denies fevers, chills, unintentional weight loss. Denies night sweats HEENT: Admits to occasional dysphagia. Denies pain on swallowing CARDIOVASCULAR: Denies chest pain or pressure. Denies palpitations or feelings of the heart racing RESPIRATORY: Denies shortness of breath. Denies cough. GASTROINTESTINAL: Denies abdominal pain. Admits to feeling "gassy" Denies diarrhea. Admits to constipation GENITOURINARY: Denies dysuria. Denies increased frequency or urgency SKIN: Denies rashes or lesions MUSCULOSKELETAL: Denies muscle weakness. Admits to numbness and tingling of the arms bilaterally NEUROLOGICAL: Denies changes in speech, gait, or balance. Admits to neuropathy of legs bilaterally. Admits to numbness and tingling in bilateral arms PSYCHIATRIC: Denies depression or anxiety ENDOCRINE: Denies heat intolerance or cold intolerance. Admits to history of diabetes HEMATOLOGIC/LYMPHATIC: Denies easy bruising or bleeding. Denies history of DVT or PE HOME MEDICATIONS: Please see below. PHYSICAL EXAMINATION: VITAL SIGNS: Temperature 96.0, pulse 61, respiratory rate 16, blood pressure 122/70, pulse oximetry 93% on room air. GENERAL APPEARANCE: Awake, alert, and oriented. Lying in bed comfortably. Does not appear to be in any acute distress HEENT: Atraumatic normocephalic. Eyes are nonicteric. Trachea is midline CARDIOVASCULAR: Normal S1, S2. Regular rate and rhythm. No clicks rubs or murmurs LUNGS: Clear vesicular breath sounds bilaterally with good respiratory effort. No wheezes, rhonchi, or rales ABDOMEN: Soft, nondistended. Nontender. No rebound tenderness of guarding. Normoactive bowel sounds. No palpable masses or hernias MUSCULOSKELETAL: 5/5 muscle strength testing in bilateral upper and lower extremities EXTREMITIES: No edema. Full and equal pulses in bilateral upper and lower extre mities NEUROLOGICAL: No focal neurological deficits. CN II-XII grossly intact PSYCHIATRIC: Mood and affect appear appropriate LABORATORY DATA: See below. IMAGING: Clinical: Chest pain. Comparison: 04/04/2019 Findings: Mediastinum and cardiac silhouette are stable and within normal limits. Lung andrade demonstrate chronic interstitial changes. There is free air below the diaphragm to suspect that the pneumoperitoneum and correlation is required. Skeletal structures appear stable. Impression: Pneumoperitoneum cannot be excluded and requires correlation. No focal consolidation. Electronically Signed by Ramírez Dc MD 07/10/2019 07:10 A PROCEDURE INFORMATION: Exam: CT Abdomen And Pelvis With Contrast Exam date and time: 07/10/2019 6:40 AM Age: 79 years old Clinical indication: Abdominal pain; Generalized; Additional info: Eval perf TECHNIQUE: Imaging protocol: Computed tomography of the abdomen and pelvis with intravenous contrast. Radiation optimization: All CT scans at this facility use at least one of these dose optimization techniques: automated exposure control; mA and/or kV adjustment per patient size (includes targeted exams where dose is matched to clinical indication); or iterative reconstruction. Contrast material: ISO; Contrast volume: 100 ml; Contrast route: AC; COMPARISON: CT ABD PELVIS W/O CONTRAST 02/16/2019 9:47 AM FINDINGS: Lungs: Interstitial thickening is seen peripherally in the visualized lung bases. There is a subpleural bleb in the right lung base. Pleural space: Calcified pleural plaques are seen bilaterally, most prominent at the bilateral diaphragmatic surfaces. Heart: A small amount of air is seen in the right atrium, likely related to venous injection. There is mild cardiomegaly. Liver: There are no focal liver lesions present. Gallbladder and bile ducts: The gallbladder is normal with no stones or biliary ductal dilation. Pancreas: There is mild dilation of the pancreatic duct measuring 5 mm, without significant change. Spleen: The spleen demonstrates punctate calcifications, consistent with remote granulomatous organism exposure. Adrenals: The adrenal glands are normal. Kidneys and ureters: The kidneys are unremarkable. Stomach and bowel: There is mild gaseous distention of the colon. There is gaseous distention and mild dilation of multiple small bowel loops. Few small bowel fluid levels are seen. Distal ileal loops appear nondilated. However, distinct transition point is not identified. Appendix: A normal appendix is identified. Intraperitoneal space: There is no free intraperitoneal air. There is no evidence of free intraperitoneal or pelvic fluid. Vasculature: There is severe atherosclerotic calcification of the coronary arteries. The visualized vasculature demonstrates moderate atherosclerotic disease. No aortic aneurysm. Lymph nodes: No lymphadenopathy is seen. Bladder: The bladder is mostly collapsed. No bladder stones are identified. Reproductive: The prostate gland and seminal vesicles are normal. Bones/joints: Degenerative endplate changes are seen at multiple levels in the visualized spine. There is facet arthropathy in the lumbar spine. There is a rightward convex curvature centered in the lumbar spine. Soft tissues: There is persistent elevation of the right diaphragm. There is low attenuation at the left iliopsoas muscle, which may be fluid in the iliopsoas bursa or related to the tendon, and appears smaller than on the prior exam. IMPRESSION: 1. Mild gaseous distention of small bowel and colon without a distinct transition point to indicate obstruction and without significant bowel wall thickening. 2. No free air or free fluid to indicate perforation. 3. Fluid associated with the left iliopsoas muscle/tendon, also seen previously and actually smaller than on the prior exam, which may be related bursal inflammation or tenosynovitis. 4. Bilateral calcified pleural plaques in the visualized lung bases. 5. Interstitial thickening again seen in the lung bases, consistent with chronic interstitial lung disease. Electronically signed by: Megan Buchanan On 07/10/2019 08:13:32 AM MICROBIOLOGY: Please see below. ASSESSMENT: Patient is an 79 year old male who presented to the [facility] ER with complaint of sudden onset bilateral arm numbness as well as abdominal pain that resolved 2 days ago and found to have elevation in lipase on presentation PLAN: 1. Elevated Lipase -No clear source for the patients elevation in lipase. He has a benign abdominal exam and negative CT imaging. Pancreatitis is unlikely at this point in time. -Liver enzymes are within normal limits. -Low residual diet -Will observe overnight -Patient did admit to some constipation and feeling gassy. He is currently passing gas and having bowel movements. A SBO / partial-SBO may cause elevation in lipase however there is no further evidence to suggest this. Will repeat lipase tomorrow 2. Congestive Heart Failure -Will continue patients home lasix dose. He appears to be at his baseline. Continue patients home Potassium -Patient received IV fluids in the ER. This has been discontinued as patient is tolerating PO 3. Bilateral Arm Numbness -Patient originally presented with a complaint of bilateral arm numbness. He currently denies any symptoms. -Will begin Gabapentin 100mg QHS. Will increase as necessary 4. CAD -Will continue Aspirin. 5. Atrial Fibrillation -Patient is not on a rate control medication. He is on anticoagulation. He is currently rate controlled 6. Asymptomatic Bradycardia -Patient has a history of bradycardia. He has atrial fibrillation however is currently not on any rate control medications because of this. -Patient is currently on telemetry. He has not demonstrated any pauses on telemetry. Will monitor for greater than 3 second pauses 7. Diabetes Mellitus Type 2 -Will continue Sliding Scale Insulin 8. Chronic Back Pain -Patient takes Percocet at home. Will continue 9. DVT prophylaxis -Patient is on Xarelto Vital Signs Vital Signs Date Time Temp Pulse Resp B/P (MAP) Pulse Ox O2 Delivery O2 Flow Rate FiO2 07/10/19 11:30 96.0 61 16 122/70 (87) 93 Room Air Laboratory Data Labs 24H Laboratory Tests 2 07/10/19 05:41: Bedside Glucose (Misc Panel) 114H 07/10/19 05:52: Immature Granulocyte % (Auto) 0.2, Neutrophils (%) (Auto) 48.6, Lymphocytes (%) (Auto) 38.5, Monocytes (%) (Auto) 7.9H, Eosinophils (%) (Auto) 4.1H, Basophils (%) (Auto) 0.7, Neutrophils # (Auto) 2.7, Lymphocytes # (Auto) 2.2, Monocytes # (Auto) 0.4, Eosinophils # (Auto) 0.2, Basophils # (Auto) 0.0, Nucleated Red Blood Cells % (auto) 0.0, Prothrombin Time 16.5H, Prothromb Time International Ratio 1.36, Anion Gap 8, Glomerular Filtration Rate > 60.0, Lactic Acid Level 1.4, Calcium Level 9.0, Magnesium Level 1.8, Total Bilirubin 1.0, Direct Jose Luis irubin 0.3H, Aspartate Amino Transf (AST/SGOT) 22, Alanine Aminotransferase (ALT/SGPT) 22, Alkaline Phosphatase 77, Total Creatine Kinase 72, Creatine Kinase MB 1.3, Creatine Kinase MB Relative Index 1.81, Troponin I 0.02, Total Protein 7.2, Albumin 4.1, Albumin/Globulin Ratio 1.32, Lipase 951H 07/10/19 12:13: Bedside Glucose (Misc Panel) 105 CBC/BMP Laboratory Tests 07/10/19 05:52 Microbiology Microbiology 07/10/19 Blood Culture, Received Pending 07/10/19 Blood Culture, Received Pending Home Medications Scheduled Aspirin (Aspirin EC) 81 Mg Tablet.dr, 81 MG PO DAILY Furosemide (Furosemide) 40 Mg Tablet, 40 MG PO DAILY Glimepiride (Glimepiride) 1 Mg Tablet, 1 MG PO DAILY Metformin HCl (Metformin HCl) 500 Mg Tablet, 500 MG PO BID Potassium Citrate (Potassium Citrate 10MEQ (Urocit-K)) 10 Meq Tablet.er, 1,080 MG PO DAILY 1080MG = 10MEQ Rivaroxaban (Xarelto) 20 Mg Tablet, 20 MG PO DAILY Scheduled PRN Oxycodone HCl/Acetaminophen (Oxycodone-Acetaminophen 5-325) 1 Each Tablet, 1-2 TAB PO Q4H PRN for PAIN Allergies Coded Allergies: No Known Allergies (Unverified , 04/09/19) allergies listed from office but pt denies A-FIB/CHADSVASC A-FIB History Current/History of A-Fib/PAF?: Yes Current PO Anticoag Therapy: Yes GME ATTESTATION GME ATTESTATION My faculty preceptor for this patient encounter was physically present during the encounter and was fully available. All aspects of the patient interview, examination, medical decision making process, and medical care plan development were reviewed and approved by the faculty preceptor. The faculty preceptor is a cazares and concurs with the plan as stated in the body of this note and will attest to such by his/her cosignature. ATTENDING NOTE I, Zachary Echevarria, have independently examined this patient and performed my own physical exam, as well as reviewed the documentation and edited where necessary. I have discussed in detail with the resident / student the findings and plan of treatment as documented by the resident / student and edited their note. I agree with their findings and treatment plan and have edited their documentation. I will continue to follow the patient during this hospital stay. PATITO HWANG DO Jul 10, 2019 13:57 ZACHARY ECHEVARRIA MD Jul 10, 2019 15:28
[2019-07-10 14:00] VITALS: BP 116/71
[2019-07-10] MEDS ORDERED: RIVAROXABAN 20 MG TAB (XARELTO) PO SCH (18:00)
[2019-07-10] MEDS ORDERED: GABAPENTIN 100 MG CAP PO SCH (21:00)
[2019-07-10] MEDS ORDERED: HumaLOG INSULIN (NovoLOG) PER UNIT SC SCH (21:00)
[2019-07-10 22:00] VITALS: BP 112/68
[2019-07-11 06:00] VITALS: BP 126/75
[2019-07-11 06:56] LABS: HEMATOCRIT 42.7 % (42.0-52.0); HEMOGLOBIN 13.8 g/dl (13.5-17.5); MEAN CORPUSCULAR HEMOGLOBIN 31.7 pg (27.0-33.0); MEAN CORPUSCULAR HGB CONC 32.3 g/dl (32.0-36.5); MEAN CORPUSCULAR VOLUME 97.9 fl (80.0-96.0); PLATELET COUNT, AUTOMATED 119 10^3/uL (150-450); RED BLOOD COUNT 4.36 10^6/uL (4.30-6.10); WHITE BLOOD COUNT 5.3 10^3/uL (4.0-10.0)
[2019-07-11 07:21] LABS: BLOOD UREA NITROGEN 17 MG/DL (7-18); CALCIUM LEVEL 8.6 MG/DL (8.8-10.2); CARBON DIOXIDE LEVEL 30 MEQ/L (21-32); CHLORIDE LEVEL 104 MEQ/L (98-107); CREATININE FOR GFR 0.73 MG/DL (0.70-1.30); GLOMERULAR FILTRATION RATE > 60.0 (>35); GLUCOSE, FASTING 98 MG/DL (70-100); LIPASE 800 U/L (73-393); POTASSIUM SERUM 3.8 MEQ/L (3.5-5.1); SODIUM LEVEL 139 MEQ/L (136-145)
[2019-07-11] MEDS: HumaLOG INSULIN (NovoLOG) PER UNIT SC SCH (07:30)
--- NOTE | 2019-07-11 07:34 | ECGEPIP ---
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
[2019-07-11] MEDS ORDERED: GABA-1171 PO (08:44)
[2019-07-11] MEDS ORDERED: ASPIRIN 81 MG ENTERIC TAB PO SCH (09:00)
[2019-07-11] MEDS ORDERED: FUROSEMIDE 40 MG TAB PO SCH (09:00)
[2019-07-11] MEDS ORDERED: POTASSIUM CITRATE 1080 MG (10MEQ) TAB PO SCH (09:00)
--- NOTE | 2019-07-11 11:02 | DS.PDOC ---
Discharge Summary General Date of Admission Jul 10, 2019 at 05:31 Date of Discharge 07/11/2019 Attending Physician: ZACHARY ECHEVARRIA MD Discharge Summary PROCEDURES PERFORMED DURING STAY: [None]. ADMITTING DIAGNOSES: 1. Bilateral Arm Numbness/tingling 2. Elevated Lipase DISCHARGE DIAGNOSES: 1. Bilateral Arm Numbness/tingling 2. Elevated Lipase COMPLICATIONS/CHIEF COMPLAINT: Elevated Lipase. HISTORY OF PRESENT ILLNESS: Patient is an 79 year male who presented to the [facility] ER with complaint of bilateral arm numbness that started when he had awoken. He had denied any other symptoms at the time. However, he did state that he had some abdominal pain 3-4 days ago with constipation. He reported today that he felt gassy and was passing lots of gas. At time of presentation to the ER the patient was vitally stable. He has stated that his symptoms has resolved. He denied any abdominal pain and stated that he was just gassy. The patient received a chest x-ray and CT abdomen and pelvis. The CT demonstrated mild gaseous distention of the small intestine and colon without a distinct transition point to indicate an obstruction and without significant bowel wall thickening. The patients laboratory evaluation was essentially normal with exception to an elevation in lipase of 951. The patient was admitted for observation HOSPITAL COURSE: On admission to the hospital patient had no further symptoms. He denied any abdominal pain. He denied any further arm numbness or tingling. The patient was started on gabapentin given his history of diabetic neuropathy. His repeat lipase was 800. However, in the setting of negative imaging and no pain with normal LFTs there is an unclear reason for this elevation. Overnight the patient was reported to be bradycardic in the 40's but without pauses or symptoms. The patient was found fit for discharge with follow-up with his PCP in 7-10 days DISCHARGE MEDICATIONS: Please see below. ALLERGIES: Please see below. PHYSICAL EXAMINATION ON DISCHARGE: VITAL SIGNS: Please see below. GENERAL: Awake, alert, and oriented. Appears in no acute distress. Lying in bed comfortably HEENT: Atraumatic, normocephalic. Eyes are nonicteric. Trachea is midline NECK: No palpable cervical, axillary, or supraclavicular lymphadenopathy CARDIOVASCULAR EXAMINATION: Normal S1, S2. Regular rate and rhythm. no clicks rubs or murmurs RESPIRATORY EXAMINATION: Clear vesicular breath sounds bilaterally. Good respiratory effort. No wheezes, rhonchi, or rales ABDOMINAL EXAMINATION: Soft, nondistended. Nontender. No rebound tenderness or guarding. Normoactive bowel sounds EXTREMITIES: No edema. Full and equal pulses in bilaterally upper and lower ex tremities SKIN: No rashes or lesions NEUROLOGICAL EXAMINATION: No focal neurological deficits PSYCHIATRIC EXAMINATION: Mood and affect appear appropriate LABORATORY DATA: Please see below. IMAGING: Clinical: Chest pain. Comparison: 04/04/2019 Findings: Mediastinum and cardiac silhouette are stable and within normal limits. Lung andrade demonstrate chronic interstitial changes. There is free air below the diaphragm to suspect that the pneumoperitoneum and correlation is required. Skeletal structures appear stable. Impression: Pneumoperitoneum cannot be excluded and requires correlation. No focal consolidation. Electronically Signed by Ramírez Dc MD 07/10/2019 07:10 A PROCEDURE INFORMATION: Exam: CT Abdomen And Pelvis With Contrast Exam date and time: 07/10/2019 6:40 AM Age: 79 years old Clinical indication: Abdominal pain; Generalized; Additional info: Eval perf TECHNIQUE: Imaging protocol: Computed tomography of the abdomen and pelvis with intravenous contrast. Radiation optimization: All CT scans at this facility use at least one of these dose optimization techniques: automated exposure control; mA and/or kV adjustment per patient size (includes targeted exams where dose is matched to clinical indication); or iterative reconstruction. Contrast material: ISO; Contrast volume: 100 ml; Contrast route: AC; COMPARISON: CT ABD PELVIS W/O CONTRAST 02/16/2019 9:47 AM FINDINGS: Lungs: Interstitial thickening is seen peripherally in the visualized lung bases. There is a subpleural bleb in the right lung base. Pleural space: Calcified pleural plaques are seen bilaterally, most prominent at the bilateral diaphragmatic surfaces. Heart: A small amount of air is seen in the right atrium, likely related to venous injection. There is mild cardiomegaly. Liver: There are no focal liver lesions present. Gallbladder and bile ducts: The gallbladder is normal with no stones or biliary ductal dilation. Pancreas: There is mild dilation of the pancreatic duct measuring 5 mm, without significant change. Spleen: The spleen demonstrates punctate calcifications, consistent with remote granulomatous organism exposure. Adrenals: The adrenal glands are normal. Kidneys and ureters: The kidneys are unremarkable. Stomach and bowel: There is mild gaseous distention of the colon. There is gaseous distention and mild dilation of multiple small bowel loops. Few small bowel fluid levels are seen. Distal ileal loops appear nondilated. However, distinct transition point is not identified. Appendix: A normal appendix is identified. Intraperitoneal space: There is no free intraperitoneal air. There is no evidence of free intraperitoneal or pelvic fluid. Vasculature: There is severe atherosclerotic calcification of the coronary arteries. The visualized vasculature demonstrates moderate atherosclerotic disease. No aortic aneurysm. Lymph nodes: No lymphadenopathy is seen. Bladder: The bladder is mostly collapsed. No bladder stones are identified. Reproductive: The prostate gland and seminal vesicles are normal. Bones/joints: Degenerative endplate changes are seen at multiple levels in the visualized spine. There is facet arthropathy in the lumbar spine. There is a rightward convex curvature centered in the lumbar spine. Soft tissues: There is persistent elevation of the right diaphragm. There is low attenuation at the left iliopsoas muscle, which may be fluid in the iliopsoas bursa or related to the tendon, and appears smaller than on the prior exam. IMPRESSION: 1. Mild gaseous distention of small bowel and colon without a distinct transition point to indicate obstruction and without significant bowel wall thickening. 2. No free air or free fluid to indicate perforation. 3. Fluid associated with the left iliopsoas muscle/tendon, also seen previously and actually smaller than on the prior exam, which may be related bursal inflammation or tenosynovitis. 4. Bilateral calcified pleural plaques in the visualized lung bases. 5. Interstitial thickening again seen in the lung bases, consistent with chronic interstitial lung disease. Electronically signed by: Megan Buchanan On 07/10/2019 08:13:32 AM PROGNOSIS: Good ACTIVITY: [As tolerated]. DIET: As tolerated DISCHARGE PLAN: Patient is to be discharged home with follow-up with his PCP in 7-10 days. He is to take Gabapentin 100mg every night for neuropathy. He is to return to the ED if his symptoms return or worsen DISPOSITION: Discharge home DISCHARGE CONDITION: [Stable]. TIME SPENT ON DISCHARGE: Greater than 35 minutes. Vital Signs/I&Os Vital Signs Date Time Temp Pulse Resp B/P (MAP) Pulse Ox O2 Delivery O2 Flow Rate FiO2 07/11/19 06:00 97.8 64 17 126/75 (92) 96 Room Air I&O- Last 24 Hours up to 6 AM 07/11/19 05:59 Intake Total 1870 ml Output Total 200 ml Balance 1670 ml Laboratory Data Labs 24H Laboratory Tests 2 07/10/19 12:13: Bedside Glucose (Misc Panel) 105 07/10/19 16:45: Bedside Glucose (Misc Panel) 235H 07/10/19 20:36: Bedside Glucose (Misc Panel) 163H 07/11/19 06:04: Nucleated Red Blood Cells % (auto) 0.0, Anion Gap 5L, Glomerular Filtration Rate > 60.0, Calcium Level 8.6L, Lipase 800H CBC/BMP Laboratory Tests 07/11/19 06:04 FSBS Laboratory Tests Test 07/10/19 12:13 07/10/19 16:45 07/10/19 20:36 Range/Units Bedside Glucose (Misc Panel) 105 235 163 83-110 MG/DL Microbiology Microbiology 07/10/19 Blood Culture - Preliminary, Resulted No growth after 24 hours . All specim... 07/10/19 Blood Culture - Preliminary, Resulted No growth after 24 hours . All specim... Discharge Medications Scheduled Aspirin (Aspirin EC) 81 Mg Tablet.dr, 81 MG PO DAILY, (Reported) Furosemide (Furosemide) 40 Mg Tablet, 40 MG PO DAILY, (Reported) Gabapentin (Gabapentin) 100 Mg Capsule, 100 MG PO QHS Glimepiride (Glimepiride) 1 Mg Tablet, 1 MG PO DAILY, (Reported) Metformin HCl (Metformin HCl) 500 Mg Tablet, 500 MG PO BID, (Reported) Potassium Citrate (Potassium Citrate 10MEQ (Urocit-K)) 10 Meq Tablet.er, 1,080 MG PO DAILY, (Reported) 1080MG = 10MEQ Rivaroxaban (Xarelto) 20 Mg Tablet, 20 MG PO DAILY, (Reported) Scheduled PRN Oxycodone HCl/Acetaminophen (Oxycodone-Acetaminophen 5-325) 1 Each Tablet, 1-2 T AB PO Q4H PRN for PAIN, (Reported) Allergies Coded Allergies: No Known Allergies (Unverified , 04/09/19) allergies listed from office but pt denies GME ATTESTATION GME ATTESTATION My faculty preceptor for this patient encounter was physically present during the encounter and was fully available. All aspects of the patient interview, examination, medical decision making process, and medical care plan development were reviewed and approved by the faculty preceptor. The faculty preceptor is aware and concurs with the plan as stated in the body of this note and will attest to such by his/her cosignature. ATTENDING NOTE I, Zachary Echevarria, have independently examined this patient and performed my own physical exam, as well as reviewed the documentation and edited where necessary. I have discussed in detail with the resident / student the findings and plan of treatment as documented by the resident / student and edited their note. I agree with their findings and treatment plan and have edited their documentation. I will continue to follow the patient during this hospital stay. Time spent on discharge 26 minutes PATITO HWANG DO Jul 11, 2019 11:02 ZACHARY ECHEVARRIA MD Jul 11, 2019 14:19
== END 2019-07-11 10:30 | disposition home or self-care (01) ==
LOC: M ED 05:30 → M ED INP 05:31 → M MSPAV 12:02
PROVIDERS: ADMIT Internal Medicine; ATTEND Internal Medicine
DX: R20.2 Paresthesia of skin (principal); R74.8 Abnormal levels of other serum enzymes; E11.40 Type 2 diabetes mellitus with diabetic neuropathy, unspecified; I11.9 Hypertensive heart disease without heart failure; I48.91 Unspecified atrial fibrillation; I25.10 Atherosclerotic heart disease of native coronary artery without angina pectoris; I71.4 Abdominal aortic aneurysm, without rupture; I50.9 Heart failure, unspecified; Z98.61 Coronary angioplasty status; Z87.891 Personal history of nicotine dependence; Z79.01 Long term (current) use of anticoagulants; Z79.82 Long term (current) use of aspirin; Z79.84 Long term (current) use of oral hypoglycemic drugs
CPT/HCPCS: 36415; 71045; 74177; 80048; 80076; 82550; 82553; 83605; 83690; 83735; 84484; 85025; 85027; 85610; 86850; 86900; 86901; 87040; 93005; 93041; 94760; 96361; 96365; 99285; G0378; J2543; Q9967

== ENCOUNTER → 2019-07-13 | Outpatient (REF) | payer MEDICARE, MEDICAID ==
[~2019-07-13] MED LIST changes: +ASPI-161 PO; +ECOT81TA5 PO; +FURO40TA2; +FURO40TA2 PO; +GABA-1171 PO; +GLIM1TAB4; +GLIM1TAB4 PO; +METF500T13 PO; +POTA10808; +POTA10808 PO
[2019-07-13 16:21] LABS: BASO % 0.5 % (0.0-1.0); EOS # 0.3 10^3/uL (0.0-0.5); EOS % 4.5 % (0.0-3.0); HEMATOCRIT 42.1 % (42.0-52.0); HEMOGLOBIN 13.3 g/dl (13.5-17.5); LYMPH # 1.8 10^3/uL (1.5-5.0); LYMPH % 32.3 % (24.0-44.0); MEAN CORPUSCULAR HEMOGLOBIN 31.2 pg (27.0-33.0); MEAN CORPUSCULAR HGB CONC 31.6 g/dl (32.0-36.5); MEAN CORPUSCULAR VOLUME 98.8 fl (80.0-96.0); MONO # 0.4 10^3/uL (0.0-0.8); MONO % 6.7 % (0.0-5.0); NEUTROPHILS # 3.1 10^3/uL (1.5-8.5); NEUTROPHILS % 55.6 % (36.0-66.0); PLATELET COUNT, AUTOMATED 130 10^3/uL (150-450); RED BLOOD COUNT 4.26 10^6/uL (4.30-6.10); WHITE BLOOD COUNT 5.5 10^3/uL (4.0-10.0)
[2019-07-13 16:37] LABS: HEMOGLOBIN A1c 7.6 %
[2019-07-13 16:44] LABS: ALT/SGPT 23 U/L (12-78); AMYLASE 33 U/L (25-115); BILIRUBIN,TOTAL 0.6 MG/DL (0.2-1.0); BLOOD UREA NITROGEN 20 MG/DL (7-18); CALCIUM LEVEL 8.8 MG/DL (8.8-10.2); CARBON DIOXIDE LEVEL 33 MEQ/L (21-32); CHLORIDE LEVEL 98 MEQ/L (98-107); CHOLESTEROL LEVEL 186 MG/DL (<200); CHOLESTEROL RISK RATIO 4.133 (<5); CREATININE FOR GFR 0.87 MG/DL (0.70-1.30); GLOMERULAR FILTRATION RATE > 60.0 (>35); GLUCOSE, FASTING 211 MG/DL (70-100); HDL CHOLESTEROL 45 MG/DL (>40); IRON (FE) 84 UG/DL (65-175); LDL CHOLESTEROL 110 MG/DL (<100); LIPASE 299 U/L (73-393); MAGNESIUM LEVEL 1.8 MG/DL (1.8-2.4); NON-HDL-C 141 MG/DL; POTASSIUM SERUM 4.5 MEQ/L (3.5-5.1); SODIUM LEVEL 135 MEQ/L (136-145); TOTAL PROTEIN 6.7 GM/DL (6.4-8.2); TRIGLYCERIDES LEVEL 157 MG/DL (<150)
[2019-07-13 16:51] LABS: VITAMIN B12 LEVEL 555 PG/ML (247-911)
[2019-07-13 16:52] LABS: FOLATE > 24.0 NG/ML (>5.4)
== END ==
LOC: M SFHCCLAY 11:27
PROVIDERS: ATTEND Family Medicine
DX: E11.65 Type 2 diabetes mellitus with hyperglycemia (principal); R74.8 Abnormal levels of other serum enzymes; E78.2 Mixed hyperlipidemia; I10 Essential (primary) hypertension; D64.9 Anemia, unspecified
CPT/HCPCS: 80053; 80061; 82150; 82607; 82746; 83036; 83540; 83690; 83735; 85025; G0463

== ENCOUNTER 2019-11-15 11:48 | Observation (INO) | payer MEDICARE, MEDICAID ==
[~2019-11-15] VITALS: Ht 177.8 cm; Wt 77.4 kg
[~2019-11-15 11:48] MED LIST changes: -METF-791 PO; +METF-838 PO
[2019-11-15 12:47] LABS: BASO % 0.4 % (0.0-1.0); EOS # 0.2 10^3/uL (0.0-0.5); HEMATOCRIT 41.8 % (42.0-52.0); HEMOGLOBIN 13.7 g/dl (13.5-17.5); LYMPH # 1.2 10^3/uL (1.5-5.0); LYMPH % 23.5 % (24.0-44.0); MEAN CORPUSCULAR HEMOGLOBIN 31.8 pg (27.0-33.0); MEAN CORPUSCULAR HGB CONC 32.8 g/dl (32.0-36.5); MONO # 0.4 10^3/uL (0.0-0.8); MONO % 8.3 % (0.0-5.0); NEUTROPHILS # 3.3 10^3/uL (1.5-8.5); NEUTROPHILS % 64.2 % (36.0-66.0); PLATELET COUNT, AUTOMATED 130 10^3/uL (150-450); RED BLOOD COUNT 4.31 10^6/uL (4.30-6.10); WHITE BLOOD COUNT 5.1 10^3/uL (4.0-10.0)
[2019-11-15 12:54] LABS: INR 2.53; PARTIAL THROMBOPLASTIN TIME 37.9 SECONDS (25.0-38.4); PROTHROMBIN TIME 27.1 SECONDS (11.8-14.0)
[2019-11-15 13:14] LABS: ALBUMIN 4.1 GM/DL (3.2-5.2); ALT/SGPT 28 U/L (12-78); BILIRUBIN,DIRECT 0.3 MG/DL (0.0-0.2); BILIRUBIN,TOTAL 1.1 MG/DL (0.2-1.0); BLOOD UREA NITROGEN 21 MG/DL (7-18); CALCIUM LEVEL 8.6 MG/DL (8.8-10.2); CARBON DIOXIDE LEVEL 32 MEQ/L (21-32); CHLORIDE LEVEL 99 MEQ/L (98-107); CK-MB VALUE MASS 2.5 NG/ML (<3.6); CPK CREATINE PHOSPHOKINASE 155 U/L (39-308); CREATININE FOR GFR 0.92 MG/DL (0.70-1.30); GLOMERULAR FILTRATION RATE > 60.0 (>35); GLUCOSE, FASTING 159 MG/DL (70-100); MAGNESIUM LEVEL 1.6 MG/DL (1.8-2.4); MB/CK RELATIVE INDEX 1.61 (< OR =4); NT-PRO BNP 1568 PG/ML (<450); POTASSIUM SERUM 4.1 MEQ/L (3.5-5.1); SODIUM LEVEL 138 MEQ/L (136-145); TOTAL PROTEIN 6.9 GM/DL (6.4-8.2); TROPONIN I 0.02 NG/ML (< 0.10)
--- NOTE | 2019-11-15 13:50 | REP ---
REASON: Near syncopal episode. COMPARISON: Multiple latest 07/10/2019 The technique utilized in obtaining the radiograph has magnified the cardiac silhouette and accentuated the interstitial markings. Once again, there is calcific pleural plaquing seen in the lung bases status quo. There is persistent unchanged elevation of the diaphragmatic surface of the right lung. There is cardiomegaly accentuated by technique. No acute patchy parenchymal opacities or pleural effusions have been develop. There is basilar fibrotic change status quo. There is no significant change in the appearance of the osseous structures. IMPRESSION: Stable appearing chronic changes. There is no evidence of acute cardiopulmonary disease. Electronically Signed by Yong Chowdhury DO 11/15/2019 02:04 P
[2019-11-15] MEDS ORDERED: MAG SULF 1GM/100ML (MAG RUN) 1 GM in IV 1 EA IV ONE (14:30)
[2019-11-15 16:46] VITALS: BP 112/68
[2019-11-15 17:00] VITALS: BP 144/74
[2019-11-15] MEDS ORDERED: PREVNAR 13 VACCINE SYRINGE (CPT CODE:90670) IM SCH (17:15)
[2019-11-15] MEDS ORDERED: PERCOCET 5MG/325MG TAB PO PRN (17:30)
[2019-11-15] MEDS ORDERED: ACETAMINOPHEN 500 MG TAB PO PRN (17:30)
--- NOTE | 2019-11-15 17:33 | HPEPDOC ---
General Date of Admission November 15, 2019 at 11:49 Date of Service: November 15, 2019 Chief Complaint The patient is a 79-year-old male admitted with a reason for visit of Syncope. Source: Patient History of Present Illness 79year old male from home , independent was brought to the ED for a syncopal episode at home. Though patient denies loss of consciousness. This morning he was in his usual state of health he was having his coffee with maple syrup in it for the first time . When he was 3/4 this finished with the coffee he started having severe upper abdominal crampy pain and felt like he was going to have diarrhea. He went to the toilet and sat down and felt very weak and unwell so called his son who was outside in the yard. Son came in to the bathroom and found him slumped back against the wall and said that he was passed out. However patient says he was just leaning back very weak and feeling washed out and unable to do anything. Son called EMS. In the meantime patient was able to get up by himself and son helped him walk to the kitchen . When EMS arrived he was sitting at the kitchen. EMS noted his BP to be 84/54 and he was given 250 cc ivf.. He was also bradycardic in 50s in Afib. Patient did not have any bowel movement. Does not remember if he had a urinated or not. By this time his abdominal cramps had resolved. He feels the maple syrup gave him the cramps and caused him to feel so weak. He was admitted for Syncope/ presyncope. Home Medications Scheduled Aspirin (Aspirin EC) 81 Mg Tablet.dr, 81 MG PO DAILY, (Reported) Furosemide (Furosemide) 40 Mg Tablet, 40 MG PO DAILY, (Reported) Glimepiride (Glimepiride) 1 Mg Tablet, 1 MG PO DAILY, (Reported) Metformin HCl (Metformin HCl) 500 Mg Tablet, 500 MG PO BID, (Reported) Potassium Citrate (Potassium Citrate 10MEQ (Urocit-K)) 10 Meq Tablet.er, 1,080 MG PO DAILY, (Reported) 1080MG = 10MEQ Rivaroxaban (Xarelto) 20 Mg Tablet, 20 MG PO DAILY, (Reported) Scheduled PRN Oxycodone HCl/Acetaminophen (Oxycodone-Acetaminophen 5-325) 1 Each Tablet, 1 TAB PO Q4H PRN for PAIN, (Reported) TAKE ONE TO TWO TABS Allergies Coded Allergies: amoxicillin (Verified Allergy, Intermediate, unk, 11/15/19) pt states had unknown reaction from past Past Medical History Medical History Chronic Systolic and diastolic heart failure Chronic atrial fibrillation, CAD s/p AMI in the past, Essential hypertension, First degree A-V block, Diabetes, Hypercholesterolemia Thoracic aortic aneurysm Nonrheumatic mitral insufficiency and aortic insufficiency GERD Chronic back pain Lumber stenosis Dysphagia evaluated by our ENT needs vocal cord specialist. Surgical History CARDIAC STENTS X 3 2006 TONSILECTOMY DEVIATED SEPTUM HERNIA REPAIR CIRCUMCISION L3-5 TRANSPEDICULAR DECOMPRESSION- DR. SNYDER 04/2015 THROAT SURGERY- DR. ESTEVEZ 03/2016 COLONOSCOPY- DR. MACK 09/21/2013,2018 A-FIB/CHADSVASC A-FIB History Current/History of A-Fib/PAF?: Yes Current PO Anticoag Therapy: Yes Review of Systems Constitutional: Reports: Weakness, Fatigue; Denies: Chills, Fever, Night Sweats Eyes: Denies: Pain, Vision change ENT: Denies: Head Aches, Ear Pain, Dysphagia Skin: Denies: Rash, Lesions, Breakdown Pulmonary: Denies: Dyspnea, Cough Cardiovascular: Denies: Chest Pain, Palpitations, Orthopnea, Paroxysmal Noc. Dyspnea, Lt Headedness Gastrointestinal: Reports: Abdominal Pain Genitourinary: Denies: Dysuria, Frequency, Incontinence, Retention Hematologic: Denies: Bruising, Bleeding Excessively Musculoskeletal: Reports: Back Pain, Shoulder Pain Physical Examination General Exam: Positive: Alert, No Acute Distress Eye Exam: Positive: PERRLA, Conjunctiva & lids normal, EOMI; Negative: Sclera icteric ENT Exam: Positive: Atraumatic, Mucous membr. moist/pink, Pharynx Normal Neck Exam: Positive: Supple; Negative: JVD, thyromegaly Chest Exam: Positive: Normal air movement, Other (few crackles at the left base) Heart Exam: Positive: Tachycardic, Bradycardic, Irregular Rhythm, Normal S1, Normal S2; Negative: Regular Rhythm, Gallops, Murmurs, Rubs Telemetry: Positive: Atrial fibrillation, Bradycardia Abdomen Exam: Positive: Normal bowel sounds, Soft; Negative: Tenderness, Hepatospenomegaly Extremity Exam: Negative: Clubbing, Cyanosis, Edema Skin Exam: Positive: Nl turgor and temperature; Negative: Breakdown, Lesion Vital Signs Vital Signs Date Time Temp Pulse Resp B/P (MAP) Pulse Ox O2 Delivery O2 Flow Rate FiO2 11/15/19 15:24 58 97 11/15/19 15:15 109/72 (84) 11/15/19 13:37 16 11/15/19 12:14 Room Air 11/15/19 12:08 96.5 Laboratory Data Labs 24H Laboratory Tests 2 11/15/19 12:29: Immature Granulocyte % (Auto) 0.6, Neutrophils (%) (Auto) 64.2, Lymphocytes (%) (Auto) 23.5L, Monocytes (%) (Auto) 8.3H, Eosinophils (%) (Auto) 3.0, Basophils (%) (Auto) 0.4, Neutrophils # (Auto) 3.3, Lymphocytes # (Auto) 1.2L, Monocytes # (Auto) 0.4, Eosinophils # (Auto) 0.2, Basophils # (Auto) 0.0, Nucleated Red Blood Cells % (auto) 0.0, Prothrombin Time 27.1H, Prothromb Time International Ratio 2.53, Activated Partial Thromboplast Time 37.9, Anion Gap 7L, Glomerular Filtration Rate > 60.0, Lactic Acid Level 1.7, Calcium Level 8.6L, Magnesium Level 1.6L, Total Bilirubin 1.1H, Direct Bilirubin 0.3H, Aspartate Amino Transf (AST/SGOT) 32, Alanine Aminotransferase (ALT/SGPT) 28, Alkaline Phosphatase 79, Total Creatine Kinase 155, Creatine Kinase MB 2.5, Creatine Kinase MB Relative Index 1.61, Troponin I 0.02, GL-Qqb-B-Type Natriuretic Peptide 1568H, Total Protein 6.9, Albumin 4.1, Albumin/Globulin Ratio 1.46, Thyroid Stimulating Hormone (TSH) 2.660 CBC/BMP Laboratory Tests 11/15/19 12:29 Assessment/Plan 79year old male from home , independent was brought to the ED for a syncopal episode at home. Though pateint denies loss of consciousness. This morning he was in his usual state of health he was having his coffee with maple syrup in it for the first time . When he was 3/4 ths finished with the coffee he started having severe upper abdominal crampy pain and felt like he was going to have diarrhea. He went to the toilet and sat down and felt very weak and unwell so called his son who was outside in the yard. Son came in to the bathroom and found him slumped back against the wall and said that he was passed out. However patient says he was just leaning back very weak and feeling washed out and unable to do anything. Son called EMS. In the meantime patient was able to get up by himself and son helped him walk to the kitchen . When EMS arrived he was sitting at the kitchen. EMS noted his BP to be 84/54 and he was given 250 cc ivf.. He was also bradycardic in 50s in Afib. Patient did not have any bowel movement. Does not remember if he had a urinated or not. By this time his abdominal cramps had resolved. He feels the maple syrup gave him the cramps and caused him to feel so weak. He was admitted for Syncope/ presyncope. Syncope/presyncope monitor on tele for cardiac arrhythmias orthostatic vitals were negative in the ED. echo from Dr Jorge office as discussed with DR Jorge done in Feb 2019 shows LVH with septal hypertrophy, significant diastolic dys, LBBB, septal motion ab from the LBBB, EF of 45%, moderate to severe pulmonary hypertension, mild May have had a vasovagal event related to his abdominal discomfort which drastically reduced his cardiac output due to his preexistant cardiac abnormality causing him to have a syncopal episode. Will get Carotid US. Chronic systolic and diastolic CHF appears compensated to a little dry will hold lasix for now Chronic Afib rate controlled without any meds continue oral anticoagulation. Diabetes continue glimiperide, hold metformin Chronic Back pain continue home meds GERD continue Omeprazole. Plan / VTE VTE Prophylaxis Ordered?: Yes GORDON SUMMERS MD November 15, 2019 17:07
[2019-11-15] MEDS ORDERED: SODIUM CHLORIDE 0.9% 1000ML IV ONE (17:45)
[2019-11-15 20:00] VITALS: BP 111/65
--- NOTE | 2019-11-15 22:08 | ECGEPIP ---
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
[2019-11-16] VITALS: BP 127/73
[2019-11-16 04:00] VITALS: BP 163/96
[2019-11-16 05:14] LABS: HEMATOCRIT 40.2 % (42.0-52.0); HEMOGLOBIN 13.7 g/dl (13.5-17.5); MEAN CORPUSCULAR HEMOGLOBIN 31.9 pg (27.0-33.0); MEAN CORPUSCULAR HGB CONC 34.1 g/dl (32.0-36.5); MEAN CORPUSCULAR VOLUME 93.7 fl (80.0-96.0); PLATELET COUNT, AUTOMATED 152 10^3/uL (150-450); RED BLOOD COUNT 4.29 10^6/uL (4.30-6.10); WHITE BLOOD COUNT 5.3 10^3/uL (4.0-10.0)
[2019-11-16 05:23] LABS: ALBUMIN 3.9 GM/DL (3.2-5.2); ALT/SGPT 25 U/L (12-78); BILIRUBIN,TOTAL 0.7 MG/DL (0.2-1.0); BLOOD UREA NITROGEN 21 MG/DL (7-18); CALCIUM LEVEL 8.9 MG/DL (8.8-10.2); CARBON DIOXIDE LEVEL 30 MEQ/L (21-32); CHLORIDE LEVEL 100 MEQ/L (98-107); CREATININE FOR GFR 0.79 MG/DL (0.70-1.30); GLOMERULAR FILTRATION RATE > 60.0 (>35); GLUCOSE, FASTING 122 MG/DL (70-100); MAGNESIUM LEVEL 1.9 MG/DL (1.8-2.4); POTASSIUM SERUM 3.8 MEQ/L (3.5-5.1); SODIUM LEVEL 137 MEQ/L (136-145); TOTAL PROTEIN 6.9 GM/DL (6.4-8.2)
[2019-11-16 08:00] VITALS: BP 137/76
[2019-11-16] MEDS ORDERED: RIVAROXABAN 20 MG TAB (XARELTO) PO SCH (08:00)
[2019-11-16] MEDS ORDERED: GLIMEPIRIDE 1 MG TABLET PO SCH (08:00)
[2019-11-16] MEDS ORDERED: ASPIRIN 81 MG ENTERIC TAB PO SCH (09:00)
--- NOTE | 2019-11-16 10:04 | REP ---
REASON FOR EXAM: Syncope. There are no priors for comparison. Abnormal echogenic material is seen along the carotid arterial pagan some of which casts an acoustic shadow consistent with rather heavy appearing calcific deposition. RIGHT LEFT CCA systolic 47.9 cm/s 62.6 cm/s CCA diastolic 12.2 cm/s 11.1 cm/s ICA systolic 54.9 cm/s 54.0 cm/s ICA diastolic 15.2 cm/s 17.0 cm/s ICA/CCA ratio 1.15 0.86 Analysis of the spectral waveforms shows no significant spectral broadening. There antegrade flow seen in both vertebral arteries. IMPRESSION: There is calcified and noncalcified atheromatous plaque seen bilaterally. According to the NASCET consensus criteria, there is less than 50% stenosis of the internal carotid artery bilaterally. Electronically Signed by Yong Chowdhury DO 11/16/2019 10:47 A
--- NOTE | 2019-11-16 12:23 | DS.PDOC ---
Discharge Summary General Date of Admission November 15, 2019 at 11:49 Date of Discharge 11/16/19 Discharge Summary PROCEDURES PERFORMED DURING STAY: [None]. DISCHARGE DIAGNOSES: Vasovagal syncope related to abdominal pain. SECONDARY DIAGNOSIS: Chronic Systolic and diastolic heart failure with EF of 45% Chronic atrial fibrillation, CAD s/p AMI in the past, Essential hypertension, First degree A-V block, Diabetes, Hypercholesterolemia Thoracic aortic aneurysm Nonrheumatic mitral insufficiency and aortic insufficiency GERD Chronic back pain Lumber stenosis Dysphagia evaluated by our ENT needs vocal cord specialist. COMPLICATIONS/CHIEF COMPLAINT: Syncope. HISTORY OF PRESENT ILLNESS: See history and physical HOSPITAL COURSE: 79year old male from home , independent was brought to the ED for a syncopal episode at home. Though pateint denies loss of consciousness. This morning he was in his usual state of health he was having his coffee with maple syrup in it for the first time . When he was 3/4 ths finished with the coffee he started having severe upper abdominal crampy pain and felt like he was going to have diarrhea. He went to the toilet and sat down and felt very weak and unwell so called his son who was outside in the yard. Son came in to the bathroom and found him slumped back against the wall and said that he was passed out. However patient says he was just leaning back very weak and feeling washed out and unable to do anything. Son called EMS. In the meantime patient was able to get up by himself and son helped him walk to the kitchen . When EMS arrived he was sitting at the kitchen. EMS noted his BP to be 84/54 and he was given 250 cc ivf.. He was also bradycardic in 50s in Afib. Patient did not have any bowel movement. Does not remember if he had a urinated or not. By this time his abdominal cramps had resolved. He feels the maple syrup gave him the cramps and caused him to feel so weak. He was admitted for Syncope/ presyncope. Syncope/presyncope monitor on tele for cardiac arrhythmias orthostatic vitals were negative in the ED. echo from Dr Jorge office as discussed with DR Jorge done in Feb 2019 shows LVH with septal hypertrophy, significant diastolic dys, LBBB, septal motion ab from the LBBB, EF of 45%, moderate to severe pulmonary hypertension, mild May have had a vasovagal event related to his abdominal discomfort Carotid US negative for any significant obstruction. Chronic systolic and diastolic CHF appears euvolemic continue lasix Chronic Afib rate controlled without any meds continue oral anticoagulation. Diabetes continue glimiperide, metformin Chronic Back pain continue home meds GERD continue Omeprazole. DISCHARGE MEDICATIONS: Please see below. ALLERGIES: Please see below. PHYSICAL EXAMINATION ON DISCHARGE: VITAL SIGNS: Please see below. General Exam: Positive: Alert, No Acute Distress Eye Exam: Positive: PERRLA, Conjunctiva & lids normal, EOMI; Negative: Sclera icteric ENT Exam: Positive: Atraumatic, Mucous membr. moist/pink, Pharynx Normal Neck Exam: Positive: Supple; Negative: JVD, thyromegaly Chest Exam: Positive: Normal air movement, Other (few crackles at the left base) Heart Exam: Positive: Tachycardic, Bradycardic, Irregular Rhythm, Normal S1, Normal S2; Negative: Regular Rhythm, Gallops, Murmurs, Rubs Telemetry: Positive: Atrial fibrillation, Bradycardia Abdomen Exam: Positive: Normal bowel sounds, Soft; Negative: Tenderness, Hepatospenomegaly Extremity Exam: Negative: Clubbing, Cyanosis, Edema Skin Exam: Positive: Nl turgor and temperature; Negative: Breakdown, Lesion LABORATORY DATA: Please see below. ACTIVITY: [As tolerated]. DIET: 2 gm sodium DISPOSITION: 01 Home, Self-Care. DISCHARGE INSTRUCTIONS: PMD in 2 weeks, Dr jorge in 3 to 4 weeks DISCHARGE CONDITION: [Stable]. TIME SPENT ON DISCHARGE: 35 minutes. Vital Signs/I&Os Vital Signs Date Time Temp Pulse Resp B/P (MAP) Pulse Ox O2 Delivery O2 Flow Rate FiO2 11/16/19 08:00 99.0 65 18 137/76 (96) 95 Room Air I&O- Last 24 Hours up to 6 AM 11/16/19 06:00 Intake Total 340 ml Output Total 0 ml Balance 340 ml Laboratory Data Labs 24H Laboratory Tests 2 11/15/19 12:29: Immature Granulocyte % (Auto) 0.6, Neutrophils (%) (Auto) 64.2, Lymphocytes (%) (Auto) 23.5L, Monocytes (%) (Auto) 8.3H, Eosinophils (%) (Auto) 3.0, Basophils (%) (Auto) 0.4, Neutrophils # (Auto) 3.3, Lymphocytes # (Auto) 1.2L, Monocytes # (Auto) 0.4, Eosinophils # (Auto) 0.2, Basophils # (Auto) 0.0, Nucleated Red Blood Cells % (auto) 0.0, Prothrombin Time 27.1H, Prothromb Time International Ratio 2.53, Activated Partial Thromboplast Time 37.9, Anion Gap 7L, Glomerular Filtration Rate > 60.0, Lactic Acid Level 1.7, Calcium Level 8.6L, Magnesium Level 1.6L, Total Bilirubin 1.1H, Direct Bilirubin 0.3H, Aspartate Amino Transf (AST/SGOT) 32, Alanine Aminotransferase (ALT/SGPT) 28, Alkaline Phosphatase 79, Total Creatine Kinase 155, Creatine Kinase MB 2.5, Creatine Kinase MB Relative Index 1.61, Troponin I 0.02, TR-Zta-Z-Type Natriuretic Peptide 1568H, Total Protein 6.9, Albumin 4.1, Albumin/Globulin Ratio 1.46, Thyroid Stimulating Hormone (TSH) 2.660 11/16/19 04:35: Nucleated Red Blood Cells % (auto) 0.0, Anion Gap 7L, Glomerular Filtration Rate > 60.0, Calcium Level 8.9, Magnesium Level 1.9, Total Bilirubin 0.7, Aspartate Amino Transf (AST/SGOT) 27, Alanine Aminotransferase (ALT/SGPT) 25, Alkaline Phosphatase 86, Total Protein 6.9, Albumin 3.9, Albumin/Globulin Ratio 1.30 CBC/BMP Laboratory Tests 11/15/19 12:29 11/16/19 04:35 Discharge Medications Scheduled Aspirin (Aspirin EC) 81 Mg Tablet.dr, 81 MG PO DAILY, (Reported) Furosemide (Furosemide) 40 Mg Tablet, 40 MG PO DAILY, (Reported) Glimepiride (Glimepiride) 1 Mg Tablet, 1 MG PO DAILY, (Reported) Metformin HCl (Metformin HCl) 500 Mg Tablet, 500 MG PO BID, (Reported) Potassium Citrate (Potassium Citrate 10MEQ (Urocit-K)) 10 Meq Tablet.er, 1,080 MG PO DAILY, (Reported) 1080MG = 10MEQ Rivaroxaban (Xarelto) 20 Mg Tablet, 20 MG PO DAILY, (Reported) Scheduled PRN Oxycodone HCl/Acetaminophen (Oxycodone-Acetaminophen 5-325) 1 Each Tablet, 1 TAB PO Q4H PRN for PAIN, (Reported) TAKE ONE TO TWO TABS Allergies Coded Allergies: amoxicillin (Verified Allergy, Intermediate, unk, 11/15/19) pt states had unknown reaction from past GORDON SUMMERS MD November 16, 2019 12:23
== END 2019-11-16 10:55 | disposition home or self-care (01) ==
LOC: M ED 11:48 → EDBD 11:48 → M ED INP 11:49 → ENRESERV 15:48 → M ICU 17:19
PROVIDERS: ADMIT Internal Medicine Nephrology; ATTEND Internal Medicine Nephrology
DX: R55 Syncope and collapse (principal); R10.9 Unspecified abdominal pain; I50.42 Chronic combined systolic (congestive) and diastolic (congestive) heart failure; I48.20 Chronic atrial fibrillation, unspecified; I25.10 Atherosclerotic heart disease of native coronary artery without angina pectoris; I25.2 Old myocardial infarction; I11.9 Hypertensive heart disease without heart failure; I44.0 Atrioventricular block, first degree; E11.9 Type 2 diabetes mellitus without complications; E78.00 Pure hypercholesterolemia, unspecified; I71.2 Thoracic aortic aneurysm, without rupture; I36.2 Nonrheumatic tricuspid (valve) stenosis with insufficiency; I35.1 Nonrheumatic aortic (valve) insufficiency; K21.9 Gastro-esophageal reflux disease without esophagitis; G89.29 Other chronic pain; M48.061 Spinal stenosis, lumbar region without neurogenic claudication; R13.10 Dysphagia, unspecified; Z79.84 Long term (current) use of oral hypoglycemic drugs; Z79.82 Long term (current) use of aspirin; Z79.01 Long term (current) use of anticoagulants; Z88.0 Allergy status to penicillin
CPT/HCPCS: 36415; 71045; 80048; 80053; 80076; 82550; 82553; 83605; 83735; 83880; 84443; 84484; 85025; 85027; 85610; 85730; 90670; 93005; 93041; 93880; 94760; 96361; 96374; 99285; G0009; G0378; J3475

== ENCOUNTER → 2019-11-27 | Outpatient (REF) | payer MEDICARE, MEDICAID ==
[2019-11-27 11:49] LABS: HEMATOCRIT 41.7 % (42.0-52.0); HEMOGLOBIN 13.3 g/dl (13.5-17.5); MEAN CORPUSCULAR HEMOGLOBIN 31.1 pg (27.0-33.0); MEAN CORPUSCULAR HGB CONC 31.9 g/dl (32.0-36.5); MEAN CORPUSCULAR VOLUME 97.7 fl (80.0-96.0); PLATELET COUNT, AUTOMATED 147 10^3/uL (150-450); RED BLOOD COUNT 4.27 10^6/uL (4.30-6.10); WHITE BLOOD COUNT 4.7 10^3/uL (4.0-10.0)
[2019-11-27 12:41] LABS: BLOOD UREA NITROGEN 24 MG/DL (7-18); CALCIUM LEVEL 8.9 MG/DL (8.8-10.2); CARBON DIOXIDE LEVEL 36 MEQ/L (21-32); CHLORIDE LEVEL 97 MEQ/L (98-107); GLOMERULAR FILTRATION RATE > 60.0 (>35); GLUCOSE, FASTING 274 MG/DL (70-100); MAGNESIUM LEVEL 2.1 MG/DL (1.8-2.4); POTASSIUM SERUM 4.8 MEQ/L (3.5-5.1); SODIUM LEVEL 138 MEQ/L (136-145)
== END ==
LOC: M LABDRAWC 11:20
PROVIDERS: ATTEND Physician Assistant
DX: I50.42 Chronic combined systolic (congestive) and diastolic (congestive) heart failure (principal); I48.21 Permanent atrial fibrillation; E11.65 Type 2 diabetes mellitus with hyperglycemia
CPT/HCPCS: 36415; 80048; 83036; 83735; 85027; 99495; G0463

== ENCOUNTER → 2019-11-27 | Outpatient (REF) | payer MEDICARE, MEDICAID ==
[2019-11-27 13:39] LABS: HEMOGLOBIN A1c 7.6 %
== END ==
LOC: M SFHCCLAY 08:51
PROVIDERS: ATTEND Family Medicine
DX: E11.65 Type 2 diabetes mellitus with hyperglycemia (principal)

== ENCOUNTER → 2020-01-29 | Outpatient (REF) | payer MEDICARE ==
[2020-01-29 16:08] LABS: BASO % 0.7 % (0.0-1.0); EOS # 0.2 10^3/uL (0.0-0.5); EOS % 3.4 % (0.0-3.0); HEMATOCRIT 40.2 % (42.0-52.0); HEMOGLOBIN 13.2 g/dl (13.5-17.5); LYMPH # 1.5 10^3/uL (1.5-5.0); LYMPH % 25.2 % (24.0-44.0); MEAN CORPUSCULAR HEMOGLOBIN 31.7 pg (27.0-33.0); MEAN CORPUSCULAR HGB CONC 32.8 g/dl (32.0-36.5); MEAN CORPUSCULAR VOLUME 96.6 fl (80.0-96.0); MONO # 0.5 10^3/uL (0.0-0.8); NEUTROPHILS # 3.8 10^3/uL (1.5-8.5); NEUTROPHILS % 62.5 % (36.0-66.0); PLATELET COUNT, AUTOMATED 175 10^3/uL (150-450); RED BLOOD COUNT 4.16 10^6/uL (4.30-6.10); WHITE BLOOD COUNT 6.1 10^3/uL (4.0-10.0)
[2020-01-29 16:36] LABS: HEMOGLOBIN A1c 7.2 %
[2020-01-29 16:54] LABS: ALBUMIN 3.9 GM/DL (3.2-5.2); ALT/SGPT 27 U/L (12-78); BILIRUBIN,TOTAL 0.9 MG/DL (0.2-1.0); BLOOD UREA NITROGEN 19 MG/DL (7-18); CALCIUM LEVEL 9.1 MG/DL (8.8-10.2); CARBON DIOXIDE LEVEL 35 MEQ/L (21-32); CHLORIDE LEVEL 99 MEQ/L (98-107); CREATININE FOR GFR 0.93 MG/DL (0.70-1.30); FOLATE > 24.0 NG/ML (>5.4); GLOMERULAR FILTRATION RATE > 60.0 (>35); GLUCOSE, FASTING 182 MG/DL (70-100); IRON (FE) 120 UG/DL (65-175); POTASSIUM SERUM 4.8 MEQ/L (3.5-5.1); SODIUM LEVEL 139 MEQ/L (136-145); VITAMIN B12 LEVEL 770 PG/ML (247-911)
== END ==
LOC: M SFHCCLAY 10:58
PROVIDERS: ATTEND Family Medicine
DX: E11.65 Type 2 diabetes mellitus with hyperglycemia (principal); I10 Essential (primary) hypertension; D64.9 Anemia, unspecified

== ENCOUNTER → 2020-05-06 | Outpatient (REF) | payer MEDICARE, MEDICAID ==
[2020-05-06 16:17] LABS: BASO % 0.6 % (0.0-1.0); EOS # 0.3 10^3/uL (0.0-0.5); EOS % 4.3 % (0.0-3.0); HEMATOCRIT 40.9 % (42.0-52.0); HEMOGLOBIN 13.1 g/dl (13.5-17.5); LYMPH # 1.9 10^3/uL (1.5-5.0); LYMPH % 30.7 % (24.0-44.0); MEAN CORPUSCULAR HEMOGLOBIN 31.3 pg (27.0-33.0); MEAN CORPUSCULAR VOLUME 97.8 fl (80.0-96.0); MONO # 0.5 10^3/uL (0.0-0.8); NEUTROPHILS # 3.5 10^3/uL (1.5-8.5); NEUTROPHILS % 56.2 % (36.0-66.0); PLATELET COUNT, AUTOMATED 138 10^3/uL (150-450); RED BLOOD COUNT 4.18 10^6/uL (4.30-6.10); WHITE BLOOD COUNT 6.2 10^3/uL (4.0-10.0)
[2020-05-06 16:41] LABS: HEMOGLOBIN A1c 7.3 %
[2020-05-06 16:47] LABS: ALBUMIN 4.1 GM/DL (3.2-5.2); ALT/SGPT 32 U/L (12-78); BILIRUBIN,TOTAL 0.7 MG/DL (0.2-1.0); BLOOD UREA NITROGEN 17 MG/DL (7-18); CALCIUM LEVEL 8.9 MG/DL (8.8-10.2); CARBON DIOXIDE LEVEL 36 MEQ/L (21-32); CHLORIDE LEVEL 98 MEQ/L (98-107); CHOLESTEROL LEVEL 211 MG/DL (<200); CHOLESTEROL RISK RATIO 3.701 (<5); CREATININE FOR GFR 0.82 MG/DL (0.70-1.30); GLOMERULAR FILTRATION RATE > 60.0 (>35); GLUCOSE, FASTING 119 MG/DL (70-100); HDL CHOLESTEROL 57 MG/DL (>40); IRON (FE) 83 UG/DL (65-175); LDL CHOLESTEROL 135 MG/DL (<100); MAGNESIUM LEVEL 1.8 MG/DL (1.8-2.4); NON-HDL-C 154 MG/DL; POTASSIUM SERUM 4.6 MEQ/L (3.5-5.1); SODIUM LEVEL 138 MEQ/L (136-145); TOTAL PROTEIN 6.9 GM/DL (6.4-8.2); TRIGLYCERIDES LEVEL 93 MG/DL (<150)
[2020-05-06 16:54] LABS: FOLATE 18.4 NG/ML (>5.4); VITAMIN B12 LEVEL 647 PG/ML (247-911)
== END ==
LOC: M SFHCCLAY 14:25
PROVIDERS: ATTEND Family Medicine
DX: E11.65 Type 2 diabetes mellitus with hyperglycemia (principal); I10 Essential (primary) hypertension; D64.9 Anemia, unspecified
CPT/HCPCS: 80053; 80061; 82607; 82746; 83036; 83540; 83735; 85025; G0463

== ENCOUNTER → 2020-08-07 | Outpatient (REF) | payer MEDICARE, MEDICAID ==
[2020-08-07 16:20] LABS: BASO % 0.6 % (0.0-1.0); EOS # 0.2 10^3/uL (0.0-0.5); EOS % 3.2 % (0.0-3.0); HEMATOCRIT 39.2 % (42.0-52.0); HEMOGLOBIN 12.8 g/dl (13.5-17.5); LYMPH % 30.4 % (24.0-44.0); MEAN CORPUSCULAR HEMOGLOBIN 31.4 pg (27.0-33.0); MEAN CORPUSCULAR HGB CONC 32.7 g/dl (32.0-36.5); MEAN CORPUSCULAR VOLUME 96.1 fl (80.0-96.0); MONO # 0.5 10^3/uL (0.0-0.8); MONO % 7.9 % (0.0-5.0); NEUTROPHILS # 3.7 10^3/uL (1.5-8.5); NEUTROPHILS % 57.6 % (36.0-66.0); PLATELET COUNT, AUTOMATED 164 10^3/uL (150-450); RED BLOOD COUNT 4.08 10^6/uL (4.30-6.10); WHITE BLOOD COUNT 6.5 10^3/uL (4.0-10.0)
[2020-08-07 16:40] LABS: BLOOD UREA NITROGEN 16 MG/DL (7-18); CALCIUM LEVEL 9.5 MG/DL (8.8-10.2); CARBON DIOXIDE LEVEL 35 MEQ/L (21-32); CHLORIDE LEVEL 93 MEQ/L (98-107); CREATININE FOR GFR 0.78 MG/DL (0.70-1.30); GLOMERULAR FILTRATION RATE > 60.0 (>35); GLUCOSE, FASTING 165 MG/DL (70-100); IRON (FE) 91 UG/DL (65-175); POTASSIUM SERUM 4.5 MEQ/L (3.5-5.1); SODIUM LEVEL 134 MEQ/L (136-145)
[2020-08-07 16:54] LABS: HEMOGLOBIN A1c 7.9 %
== END ==
LOC: M SFHCCLAY 13:56
PROVIDERS: ATTEND Family Medicine
DX: E11.65 Type 2 diabetes mellitus with hyperglycemia (principal); D64.9 Anemia, unspecified
CPT/HCPCS: 80048; 83036; 83540; 85025; G0463

== ENCOUNTER 2020-10-14 06:06 | Observation (INO) | payer OTHER, MEDICAID ==
[~2020-10-14] VITALS: Ht 177.8 cm; Wt 73.2 kg
[2020-10-14 06:45] LABS: BASO % 0.3 % (0.0-1.0); EOS # 0.1 10^3/uL (0.0-0.5); EOS % 1.2 % (0.0-3.0); HEMATOCRIT 40.9 % (42.0-52.0); HEMOGLOBIN 13.1 g/dl (13.5-17.5); LYMPH % 9.6 % (24.0-44.0); MEAN CORPUSCULAR HEMOGLOBIN 31.6 pg (27.0-33.0); MEAN CORPUSCULAR VOLUME 98.8 fl (80.0-96.0); MONO # 0.6 10^3/uL (0.0-0.8); MONO % 5.9 % (2.0-8.0); NEUTROPHILS # 8.5 10^3/uL (1.5-8.5); NEUTROPHILS % 82.7 % (36.0-66.0); PLATELET COUNT, AUTOMATED 146 10^3/uL (150-450); RED BLOOD COUNT 4.14 10^6/uL (4.30-6.10); WHITE BLOOD COUNT 10.3 10^3/uL (4.0-10.0)
[2020-10-14 06:56] LABS: ALBUMIN 4.1 GM/DL (3.2-5.2); ALT/SGPT 55 U/L (12-78); BILIRUBIN,DIRECT 0.3 MG/DL (0.0-0.2); BILIRUBIN,TOTAL 0.8 MG/DL (0.2-1.0); BLOOD UREA NITROGEN 20 MG/DL (7-18); CARBON DIOXIDE LEVEL 32 MEQ/L (21-32); CHLORIDE LEVEL 101 MEQ/L (98-107); CK-MB VALUE MASS 2.4 NG/ML (<3.6); CPK CREATINE PHOSPHOKINASE 115 U/L (39-308); CREATININE FOR GFR 0.66 MG/DL (0.70-1.30); GLOMERULAR FILTRATION RATE > 60.0 (>35); GLUCOSE, FASTING 216 MG/DL (70-100); MB/CK RELATIVE INDEX 2.09 (< OR =4); NT-PRO BNP 2868 PG/ML (<450); POTASSIUM SERUM 4.3 MEQ/L (3.5-5.1); SODIUM LEVEL 137 MEQ/L (136-145); TOTAL PROTEIN 7.4 GM/DL (6.4-8.2); TROPONIN I 0.04 NG/ML (< 0.10)
[2020-10-14] MEDS ORDERED: FUROSEMIDE 100MG/10ML VIAL (J1940) IV ONE (07:25)
--- NOTE | 2020-10-14 07:29 | REPVR ---
PROCEDURE INFORMATION: Exam: XR Chest Exam date and time: 10/14/2020 6:45 AM Age: 80 years old Clinical indication: Cough and dyspnea; Additional info: Dyspnea/cough TECHNIQUE: Imaging protocol: XR of the chest Views: 1 view. COMPARISON: 1. CR PORTABLE CHEST X-RAY 07/10/2019 5:49:43 AM 2. CR PORTABLE CHEST X-RAY 11/15/2019 12:44 PM FINDINGS: Lungs: There is interstitial thickening in both lungs which has a peripheral and basilar predominance and is significantly increased compared to the prior exams. There is hazy opacity in both lung bases, which may be due to the chronic interstitial disease, but superimposed infiltrates, atelectasis, or edema could also be present. Pleural spaces: Calcified pleural plaques are again seen at both diaphragms. No pleural effusions or pneumothorax identified. Heart/Mediastinum: The heart is enlarged. Vasculature: Aortic knob calcifications are noted. Diaphragm: There is persistent elevation of the right diaphragm. Bones/joints: There is evidence of bilateral distal clavicle resections. There are degenerative changes in both shoulders. Woodman sutures are seen at the left humeral head. There is a deformity of a left inferior rib, unchanged and probably related to an old prior fracture. Degenerative endplate changes are seen at multiple levels in the visualized spine. IMPRESSION: 1. Peripheral and basilar predominant interstitial thickening in both lungs, significantly worse than on the prior exams, which may represent worsening of underlying chronic interstitial lung disease, but superimposed acute processes may be present as well. 2. Persistent elevation of the right diaphragm and calcified pleural plaques again noted. Electronically signed by: Megan Buchanan On 10/14/2020 07:30:08 AM
[2020-10-14] MEDS ORDERED: ISOVUE-370 76% 100ML VIAL As Ordered ONE (07:31)
--- NOTE | 2020-10-14 08:26 | REPVR ---
PROCEDURE INFORMATION: Exam: CTA Chest With Contrast Exam date and time: 10/14/2020 7:57 AM Age: 80 years old Clinical indication: Abnormal findings; Abnormal diagnostic tests; Elevated d-dimer; Additional info: SOB elevated ddimer TECHNIQUE: Imaging protocol: Computed tomographic angiography of the chest with contrast. 3D rendering (Not supervised by radiologist): MIP and/or 3D reconstructed images were created by the technologist. Radiation optimization: All CT scans at this facility use at least one of these dose optimization techniques: automated exposure control; mA and/or kV adjustment per patient size (includes targeted exams where dose is matched to clinical indication); or iterative reconstruction. Contrast material: ISOVUE 370; Contrast volume: 75 ml; Contrast route: INTRAVENOUS (IV); COMPARISON: CT Chest without contrast 02/16/2019 9:41 AM FINDINGS: Pulmonary arteries: The pulmonary arteries demonstrate moderate central enlargement, consistent with pulmonary hypertension. The pulmonary artery measures 3.7 cm, unchanged. No filling defects are seen to indicate an acute pulmonary embolism. 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 This examination was not tailored for optimal assessment of the aorta and the contrast has not yet reached the aorta. Lungs: There is peripheral and basilar predominant interstitial thickening which appears worse than on the prior exam. There is volume loss in the right lung base, with crowding and a small amount of consolidation consistent with atelectasis. There is mild, somewhat patchy ground-glass opacity in both lungs which was not seen previously. There is a 9 mm sub solid pulmonary nodule in the left upper lobe which is unchanged compared to the prior exam. There is bronchial wall thickening, similar to the prior exam. Pleural spaces: There are small, bilateral pleural effusions. There are calcified pleural plaques bilaterally most prominent at the diaphragmatic surfaces. Heart: The heart is enlarged. There is severe atherosclerotic calcification of the coronary arteries. There is reflux of IV contrast into the inferior vena cava and hepatic veins. Lymph nodes: There are multiple enlarged nonspecific mediastinal nodes, similar to the prior exam. Spleen: The spleen demonstrates punctate calcifications, consistent with remote granulomatous organism exposure. Bones/joints: There are advanced degenerative changes in both shoulders. Degenerative endplate changes are seen at multiple levels in the visualized spine. 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 Additional healed posterior left rib fracture deformities are again noted as well. Soft tissues: Unremarkable. IMPRESSION: 1. No evidence of acute pulmonary embolism. Enlargement of the central pulmonary arteries indicative of pulmonary hypertension, unchanged from the prior exam. 2. 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 The contrast bolus was not timed for a complete assessment of the thoracic aorta. 3. Peripheral and basilar predominant interstitial thickening, consistent with chronic interstitial lung disease, increased compared to the prior exam. The pattern fits with usual interstitial pneumonia but the presence of calcified pleural plaques suggests asbestosis. 4. Mild, somewhat patchy ground-glass opacities in both lungs and small pleural effusions, not seen previously, which may represent a superimposed pneumonitis or mild edema. 5. Stable sub solid pulmonary nodule in the left upper lobe. Annual CT Chest should be performed for 5 years. (Reference: Petra) REFERENCES: Anaholucia H, et al. Guidelines for Management of Incidental Pulmonary Nodules Detected on CT Images: From the Fleischner Society 2017. Radiology. 2017;284(1):228-243. Electronically signed by: Megan Buchanan On 10/14/2020 08:26:17 AM
[2020-10-14] MEDS ORDERED: METF-838 PO (08:39)
[2020-10-14] MEDS: HumaLOG INSULIN (NovoLOG) PER UNIT SC SCH ×2 (12:00→18:19)
[2020-10-14] MEDS ORDERED: PERCOCET 5MG/325MG TAB PO PRN (12:05)
[2020-10-14] MEDS ORDERED: GLUCOSE 4GM CHEW TABLET PO PRN (12:05)
[2020-10-14] MEDS ORDERED: GLUCAGON INJ 1MG VIAL SC PRN (12:05)
[2020-10-14] MEDS ORDERED: MAALOX 30 ML SUSP *UDC PO PRN (12:05)
[2020-10-14] MEDS ORDERED: MOM 30ML SUSPENSION UDC PO PRN (12:05)
[2020-10-14] MEDS ORDERED: DEXTROSE 50% 50 ML SYRINGE IV PRN (12:05)
[2020-10-14] MEDS ORDERED: ACETAMINOPHEN TAB 650MG DOSE (2X325MG) PO PRN (12:05)
[2020-10-14 15:35] VITALS: BP 119/65
--- NOTE | 2020-10-14 16:39 | HPEPDOC ---
General Date of Admission Oct 14, 2020 at 10:45 Date of Service: Oct 14, 2020 Primary Care Physician: Italo Lopez Attending Physician: FAWN ALVAREZ MD Chief Complaint CHIEF COMPLAINT: Shortness of breath HISTORY OF PRESENT ILLNESS: Markos Cardenas is a 80 y/o M with hx of GERD, DM (last a1c 08/07/20 7.9), HLD, A-Fib (on Xarelto), HF with reduced EF (last echo 02/16/2019, LVEF 45%) and CAD (s/p 3x stents in 2005, followed by Dr. Jorge [address]) presenting to ED complaining of acute onset of shortness of breath. Per patient, with no symptoms prior, patient woke up 0100am this morning with acute onset of shortness of breath. His SOB continued to worsen over the m orning, prompting patient to call for EMS for emergency medical care. He denied associated CP, fever, chills, cough, sputum production, but noted orthopnea (feeling better when sitting up) and some leg swelling (per daughter in law). He also noted his presenting symptoms today is similar to his hospital admission 2 years ago on 02/16/2019, in which he was found with decompensation systolic congestive heart failure with echo showing moderately reduced LV systolic EF of 45% and was treated with IV lasix. Patient denied any chronic respiratory history and does not see a green energy marketing analyst. He was a former smoker with 30 pack year history but quitted 32 years ago. He also admits to daily use of marijuana. 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 He also denied recent weight changes. PAST MEDICAL HISTORY: Chronic Systolic and diastolic heart failure Chronic atrial fibrillation, CAD s/p AMI in the past, Essential hypertension, First degree A-V block, Diabetes, Hypercholesterolemia Thoracic aortic aneurysm Nonrheumatic mitral insufficiency and aortic insufficiency GERD Chronic back pain Lumber stenosis Dysphagia evaluated by our ENT needs vocal cord specialist. PAST SURGICAL HISTORY: CARDIAC STENTS X 3 2006 TONSILECTOMY DEVIATED SEPTUM HERNIA REPAIR CIRCUMCISION L3-5 TRANSPEDICULAR DECOMPRESSION- DR. MCFARLAND 04/2015 THROAT SURGERY- DR. ESTEVEZ 03/2016 COLONOSCOPY- DR. 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 FAMILY HISTORY: FATHER: 74 YRS, ANEURYSM MOTHER: 82 YRS, CHF, DIAGNOSED WITH DIABETES SIBLINGS: 2 BROTHERS AND # SISTERS, ALIVE, Hx of PARKINSONS, ALZHEIMER'S DEMENTIA, UNSPECIFIED HEART DISEASE SON(S): 3 SONS, ALIVE ALLERGIES: Please see below. REVIEW OF SYSTEMS: CONSTITUTIONAL: Denies chills, fever, weakness, fatigue, unexpected weight change, loss of appetite HEENT: Denies headaches, dizziness, vision changes, hearing changes or throat pain. CARDIOVASCULAR: Denies chest pain, palpitations, but noted edema and SOB RESPIRATORY: Noted dyspnea but denied cough or hemoptysis GASTROINTESTINAL: Denies nausea, vomiting, abdominal pain, diarrhea, constipation, melena, hematochezia GENITAOURINARY: Denies dysuria, hematuria, urinary frequency, incontinence or retention. SKIN: Denies skin changes, rash, lesions, jaundice, bruising MUSCULOSKELETAL: Denies weakness, muscle or joint pain. NEUROLOGICAL: Denies focal weakness, numbness, tingling, change in Speech PSYCHIATRIC: Denies SI, HI, audio/visual hallucination HEMATOLOGICAL: Denies bruising, excessive bleeding, petechiae HOME MEDICATIONS: Please see below. PHYSICAL EXAMINATION: VITAL SIGNS: See below GENERAL APPEARANCE: Reveals 80 y/o M who appears at stated age, sitting in semi- alex position on ER cot, alert & oriented x3, in no Acute Distress. HEENT Exam: Normocephalic and atraumatic, PERRLA, conjunctiva & lids normal, anicteric sclera, mucous membr. moist/pink, pharynx normal, nares patent. NC noted on 2L/min O2. NECK: Supple without lymphadenopathy, JVD, thyromegaly LUNGS: Basilar crackles with inspiratory wheezes noted R>L. CARDIOVASCULAR: Irregularly irregular rhythm with bradycardia. normal S1 & S2 without gallops, murmurs, rubs ABDOMEN: Soft, non-tender, non-distended with normal bowel sounds. No masses or ecchymosis or hepatosplenomegaly. EXTREMITIES: 2+ pulses in all extremities. No clubbing, cyanosis, edema, tenderness SKIN: Normal turgor and temperature. No rash, lesion MUSCULOSKELETAL: Strength +5/5 in all extremities without tenderness. NEUROLOGICAL: Normal speech, no gross focal neurologic deficit noted. PSYCHIATRIC: Normal mood and affect TELEMETRY: 56 bpm, 104/61, 99% RA, 22RR LABORATORY DATA: See below. IMAGING: PORTABLE CHEST X-RAY 10/14/2020 IMPRESSION: 1. Peripheral and basilar predominant interstitial thickening in both lungs, significantly worse than on the prior exams, which may represent worsening of underlying chronic interstitial lung disease, but superimposed acute processes may be present as well. 2. Persistent elevation of the right diaphragm and calcified pleural plaques again noted. CTA Chest With Contrast 10/14/2020 IMPRESSION: 1. No evidence of acute pulmonary embolism. Enlargement of the central pulmonary arteries indicative of pulmonary hypertension, unchanged from the prior exam. 2. 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 The contrast bolus was not timed for a complete assessment of the thoracic aorta. 3. Peripheral and basilar predominant interstitial thickening, consistent with chronic interstitial lung disease, increased compared to the prior exam. The pattern fits with usual interstitial pneumonia but the presence of calcified pleural plaques suggests asbestosis. 4. Mild, somewhat patchy ground-glass opacities in both lungs and small pleural effusions, not seen previously, which may represent a superimposed pneumonitis or mild edema. 5. Stable sub solid pulmonary nodule in the left upper lobe. Annual CT Chest should be performed for 5 years. (Reference: Petra) MICROBIOLOGY: Please see below. EKG interpretation: 10/14/2020 0653 rate of 74bpm. Atrial fibrillation with left axis deviation, LVH ASSESSMENT: Markos Cardenas is a 80 y/o M with hx of GERD, DM, HLD, A-Fib (on Xarelto), HF with reduced EF (last echo 02/16/2019, LVEF 45%) and CAD (s/p 3x stents in 2005, followed by Dr. Jogre [id number]) presenting to ED complaining of acute onset of shortness of breath. PLAN: 1. Acute decompensate heart failure aaaa Home Medications Scheduled Furosemide (Furosemide) 40 Mg Tablet, 40 MG PO DAILY, (Reported) Glimepiride (Glimepiride) 1 Mg Tablet, 1 MG PO DAILY, (Reported) Metformin HCl (Metformin HCl ER) 500 Mg Tab.er.24h, 500 MG PO BID, (Reported) Potassium Citrate (Potassium Citrate 10MEQ (Urocit-K)) 10 Meq Tablet.er, 1,080 MG PO DAILY, (Reported) 1080MG = 10MEQ Rivaroxaban (Xarelto) 20 Mg Tablet, 20 MG PO DAILY, (Reported) Scheduled PRN Oxycodone HCl/Acetaminophen (Oxycodone-Acetaminophen 5-325) 1 Each Tablet, 1 TAB PO Q4H PRN for PAIN, (Reported) TAKE ONE TO TWO TABS Allergies Coded Allergies: amoxicillin (Verified Allergy, Intermediate, unk, 11/15/19) pt states had unknown reaction from past Vital Signs Vital Signs Date Time Temp Pulse Resp B/P (MAP) Pulse Ox O2 Delivery O2 Flow Rate FiO2 10/14/20 14:15 55 97/60 (72) 98 Nasal Cannula 2.0 10/14/20 12:31 18 10/14/20 06:10 98.0 Laboratory Data Labs 24H Laboratory Tests 2 10/14/20 06:24: Immature Granulocyte % (Auto) 0.3, Neutrophils (%) (Auto) 82.7H, Lymphocytes (%) (Auto) 9.6L, Monocytes (%) (Auto) 5.9, Eosinophils (%) (Auto) 1.2, Basophils (%) (Auto) 0.3, Neutrophils # (Auto) 8.5, Lymphocytes # (Auto) 1.0L, Monocytes # (Auto) 0.6, Eosinophils # (Auto) 0.1, Basophils # (Auto) 0.0, Nucleated Red Blood Cells % (auto) 0.0, D-Dimer, Quantitative 597.96H, Anion Gap 4L, Glomerular Filtration Rate > 60.0, Calcium Level 9.0, Total Bilirubin 0.8, Direct Bilirubin 0.3H, Aspartate Amino Transf (AST/SGOT) 41H, Alanine Aminotransferase (ALT/SGPT) 55, Alkaline Phosphatase 112, Total Creatine Kinase 115, Creatine Kinase MB 2.4, Creatine Kinase MB Relative Index 2.09, Troponin I 0.04, UK-Nqc-F-Type Natriuretic Peptide 2868H, Total Protein 7.4, Albumin 4.1, Albumin/Globulin Ratio 1.2 10/14/20 12:39: Bedside Glucose (Misc Panel) 159H CBC/BMP Laboratory Tests 10/14/20 06:24 Microbiology Microbiology 10/14/20 Respiratory Virus Panel (PCR) (EDWIGE) - Final, Complete 10/14/20 Blood Culture, Received Pending William Pearson MD Oct 14, 2020 15:19 CHRISSY MONTAÑO OMS-3 Oct 14, 2020 16:39
--- NOTE | 2020-10-14 17:54 | HPEPDOC ---
General Date of Admission Oct 14, 2020 at 10:45 Date of Service: Oct 14, 2020 Chief Complaint The patient is a 80-year-old male admitted with a reason for visit of CHF. CHIEF COMPLAINT: Shortness of breath HISTORY OF PRESENT ILLNESS: Mr. Cardenas is a 80 y/o M with hx of GERD, DM (last a1c 08/07/20 7.9), HLD, A-Fib (on Xarelto), HF with reduced EF (last echo 02/16/2019, LVEF 45%) and CAD (s/p 3x stents in 2005, followed by Dr. Jorge [id number]) accompanied by his [id number] presenting to ED complaining of acute onset of shortness of breath. He reports to woke up at 1 am this morning with acute onset of shortness of breath. His SOB continued till morning, prompting him to call for EMS. He denied associated chest pain, fever, chills, cough, sputum production, but noted orthopnea (feeling better when sitting up) a nd some leg swelling (per daughter in law). He says he had similar complaints in past , in which he was found with decompensation systolic congestive heart failure with echo showing moderately reduced LV systolic EF of 45% and was treated with IV lasix. He was a former smoker with 30 pack year history but quitted 32 years ago. He also admits to daily use of marijuana. He also denied recent weight changes. PAST MEDICAL HISTORY: Chronic Systolic and diastolic heart failure Chronic atrial fibrillation, CAD s/p AMI in the past, Essential hypertension, First degree A-V block, NIDDM HDL Thoracic aortic aneurysm Nonrheumatic mitral insufficiency and aortic insufficiency GERD Chronic back pain Lumber stenosis Dysphagia evaluated by our ENT needs vocal cord specialist. PAST SURGICAL HISTORY: Cardiac stent in 08/13/2005 Tonsillectomy Deviated septum Hernia repair Circumcision L3 L5 transpedicular decompression by Dr. Bauman 04/[address] Castañeda 03/[address] 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 FAMILY HISTORY: FATHER: at age 75, aneurysm MOTHER: at age 82, diagnosed with diabetes SIBLINGS: 2 brothers and 3 sisters alive, history of Parkinson's, Alzheimer's dementia, unspecified heart disease SON(S): 3 sons, alive ALLERGIES: Please see below. REVIEW OF SYSTEMS: CONSTITUTIONAL: Denies chills, fever, weakness, fatigue, unexpected weight change, loss of appetite HEENT: Denies headaches, dizziness, vision changes or throat pain. CARDIOVASCULAR: Denies chest pain, palpitations, but noted edema and SOB RESPIRATORY: Noted dyspnea but denied cough. GASTROINTESTINAL: Denies nausea, vomiting, abdominal pain, diarrhea, constipation, melena, hematochezia GENITAOURINARY: Denies dysuria, hematuria, urinary frequency. SKIN: Denies skin changes, rash, lesions, jaundice, bruising MUSCULOSKELETAL: Denies weakness, muscle or joint pain. NEUROLOGICAL: Denies focal weakness, numbness, tingling, change in Speech PSYCHIATRIC: Denies SI, HI, audio/visual hallucination HEMATOLOGICAL: Denies bruising, excessive bleeding, petechiae HOME MEDICATIONS: Please see below. PHYSICAL EXAMINATION: VITAL SIGNS: See below GENERAL APPEARANCE: Patient is alert and oriented 3, no acute distress, laying in bed HEENT Exam: Pupils equal and round and reactive to light, conjunctiva and sclera normal, mucous membranes pink and moist, neck supple, no lymphadenopathy, no JVD noted. A prominent right clavicle bone is noted and reports he had an fracture in the past. LUNGS: Basilar crackles more on the right side, with inspiratory wheezes. Dullness to percussion in the right lower lobes. CARDIOVASCULAR: Irregularly irregular rhythm with bradycardia. normal S1 & S2 without gallops, murmurs, rubs. ABDOMEN: Soft, non-tender, non-distended with normal bowel sounds. No masses or organomegaly. EXTREMITIES: 2+ pulses in all extremities. Mild pedal edema noted over the ankle lateral malleolus. SKIN: Normal turgor and temperature. No rash, lesion NEUROLOGICAL: Normal speech, no focal neurologic deficit noted. PSYCHIATRIC: Normal mood and affect LABORATORY DATA: See below. IMAGING: PORTABLE CHEST X-RAY 10/14/2020 IMPRESSION: 1. Peripheral and basilar predominant interstitial thickening in both lungs, significantly worse than on the prior exams, which may represent worsening of underlying chronic interstitial lung disease, but superimposed acute processes may be present as well. 2. Persistent elevation of the right diaphragm and calcified pleural plaques again noted. CTA Chest With Contrast 10/14/2020 IMPRESSION: 1. No evidence of acute pulmonary embolism. Enlargement of the central pulmonary arteries indicative of pulmonary hypertension, unchanged from the prior exam. 2. 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 The contrast bolus was not timed for a complete assessment of the thoracic aorta. 3. Peripheral and basilar predominant interstitial thickening, consistent with chronic interstitial lung disease, increased compared to the prior exam. The pattern fits with usual interstitial pneumonia but the presence of calcified pleural plaques suggests asbestosis. 4. Mild, somewhat patchy ground-glass opacities in both lungs and small pleural effusions, not seen previously, which may represent a superimposed pneumonitis or mild edema. 5. Stable sub solid pulmonary nodule in the left upper lobe. Annual CT Chest should be performed for 5 years. (Reference: Petra) MICROBIOLOGY: Please see below. EKG interpretation: 10/14/2020 0653 rate of 74bpm. Atrial fibrillation with left axis deviation, LVH ASSESSMENT: Markos Cardenas is a 80 y/o M with hx of GERD, DM, HLD, A-Fib (on Xarelto), HF with reduced EF (last echo 02/16/2019, LVEF 45%) and CAD (s/p 3x stents in 2005, followed by Dr. Jorge [id number]), COPD not on home oxygen Presenting to ED complaining of acute onset of shortness of breath. In the ED he was saturating well at rest but upon standing he was dropping to upper 80s, he was placed on 2 L of nasal cannula, and got furosemide 80 mg IV. PLAN: Acute on chronic decompensate heart failure: - Last echo done and 02/16/2019 with an ejection fraction of 45%. - Patient's BNP is 2868. Troponin negative. - Start patient on furosemide 40 mg IV BID. - Will continue his home medication potassium citrate as well. - Will reevaluate and see tomorrow how he is doing and see if he requires home oxygen. - Patient had an mild d-dimer elevation in the CTA was negative. Atrial fibrillation: - Patient is on Xarelto at home for anticoagulation. - Will continue Xarelto 20 mg. [id number] diabetes mellitus: - Patient is on insulin sliding scale. - Fasting glucose with before meals and at bedtime coverage. - Will hold his metformin. - Hypoglycemic protocol and place. Chronic back pain: - Will continue his home Percocet for now. DVT prophylaxis: - Patient is on Xarelto 20 mg at home for A. fib will continue the same. Home Medications Scheduled Furosemide (Furosemide) 40 Mg Tablet, 40 MG PO DAILY, (Reported) Glimepiride (Glimepiride) 1 Mg Tablet, 1 MG PO DAILY, (Reported) Metformin HCl (Metformin HCl ER) 500 Mg Tab.er.24h, 500 MG PO BID, (Reported) Potassium Citrate (Potassium Citrate 10MEQ (Urocit-K)) 10 Meq Tablet.er, 1,080 MG PO DAILY, (Reported) 1080MG = 10MEQ Rivaroxaban (Xarelto) 20 Mg Tablet, 20 MG PO DAILY, (Reported) Scheduled PRN Oxycodone HCl/Acetaminophen (Oxycodone-Acetaminophen 5-325) 1 Each Tablet, 1 TAB PO Q4H PRN for PAIN, (Reported) TAKE ONE TO TWO TABS Allergies Coded Allergies: amoxicillin (Verified Allergy, Intermediate, unk, 11/15/19) pt states had unknown reaction from past A-FIB/CHADSVASC A-FIB History Current/History of A-Fib/PAF?: Yes Current PO Anticoag Therapy: Yes Age/Risk Factor Scoring CHADSVASC: CHADSVASC Response (Comments) Value Age Risk Factor Age >/= 75 years old 2 Total 2 Vital Signs Vital Signs Date Time Temp Pulse Resp B/P (MAP) Pulse Ox O2 Delivery O2 Flow Rate FiO2 10/14/20 15:35 96.3 65 20 119/65 (83) 99 Nasal Cannula 2.0 Laboratory Data Labs 24H Laboratory Tests 2 10/14/20 06:24: Immature Granulocyte % (Auto) 0.3, Neutrophils (%) (Auto) 82.7H, Lymphocytes (%) (Auto) 9.6L, Monocytes (%) (Auto) 5.9, Eosinophils (%) (Auto) 1.2, Basophils (%) (Auto) 0.3, Neutrophils # (Auto) 8.5, Lymphocytes # (Auto) 1.0L, Monocytes # (Auto) 0.6, Eosinophils # (Auto) 0.1, Basophils # (Auto) 0.0, Nucleated Red Blood Cells % (auto) 0.0, D-Dimer, Quantitative 597.96H, Anion Gap 4L, Glom erular Filtration Rate > 60.0, Calcium Level 9.0, Total Bilirubin 0.8, Direct Bilirubin 0.3H, Aspartate Amino Transf (AST/SGOT) 41H, Alanine Aminotransferase (ALT/SGPT) 55, Alkaline Phosphatase 112, Total Creatine Kinase 115, Creatine Kinase MB 2.4, Creatine Kinase MB Relative Index 2.09, Troponin I 0.04, QP-Rlw-F-Type Natriuretic Peptide 2868H, Total Protein 7.4, Albumin 4.1, Albumin/Globulin Ratio 1.2 10/14/20 12:39: Bedside Glucose (Misc Panel) 159H 10/14/20 16:47: Bedside Glucose (Misc Panel) 140H CBC/BMP Laboratory Tests 10/14/20 06:24 Microbiology Microbiology 10/14/20 Respiratory Virus Panel (PCR) (EDWIGE) - Final, Complete 10/14/20 Blood Culture, Received Pending Plan / VTE VTE Prophylaxis Ordered?: Yes GME ATTESTATION GME ATTESTATION My faculty preceptor for this patient encounter was physically present during the encounter and was fully available. All aspects of the patient interview, examination, medical decision making process, and medical care plan development were reviewed and approved by the faculty preceptor. The faculty preceptor is aware and concurs with the plan as stated in the body of this note and will attest to such by his/her cosignature. ATTENDING NOTE I, Jason Yousif MD, have independently examined this patient and performed my own physical exam, as well as reviewed the documentation and edited where necessary. I have discussed in detail with the resident / student the findings and plan of treatment as documented by the resident / student and edited their note. I agree with their findings and treatment plan and have edited their documentation. William Pearson MD Oct 14, 2020 17:54 JASON YOUSIF MD Oct 17, 2020 15:03
--- NOTE | 2020-10-14 17:59 | ECGEPIP ---
[facility] - ED Test Date: 2020-10-14 Pat Name: ANA HERNANDEZ Department: Room: - Gender: Male Skimmer: elias : 1940 Requested By: PATITO Fernandez Order Number: [id number] Reading MD: Annalisa Faria Measurements Intervals Baxter Rate: 74 P: OK: QRS: -46 QRSD: 114 T: 95 QT: 406 QTc: 450 Interpretive Statements Atrial fibrillation Left axis deviation Minimal voltage criteria for LVH, may be normal variant ( Salas product ) Nonspecific ST and T wave abnormality increased rate 11/15/19 Electronically Signed on 10-14-2020 17:58:52 EDT by Annalisa Faria
[2020-10-14] MEDS ORDERED: RIVAROXABAN 20 MG TAB (XARELTO) PO SCH (18:00)
[2020-10-14] MEDS: FUROSEMIDE 40MG/4ML VIAL (J1940) IV SCH (18:20)
[2020-10-14] MEDS ORDERED: HumaLOG INSULIN (NovoLOG) PER UNIT SC SCH (21:00)
[2020-10-14] MEDS: DOCUSATE SODIUM 100MG CAPSULE PO SCH (21:02)
[2020-10-14] MEDS: POTASSIUM CITRATE 1080 MG (10MEQ) TAB PO SCH (21:02)
[2020-10-14 22:00] VITALS: BP 102/63
[2020-10-15 06:00] VITALS: BP 110/64
[2020-10-15] MEDS: HumaLOG INSULIN (NovoLOG) PER UNIT SC SCH ×2 (08:33→12:25)
[2020-10-15] MEDS: DOCUSATE SODIUM 100MG CAPSULE PO SCH (08:34)
[2020-10-15] MEDS: FUROSEMIDE 40MG/4ML VIAL (J1940) IV SCH (08:34)
[2020-10-15] MEDS: POTASSIUM CITRATE 1080 MG (10MEQ) TAB PO SCH (08:34)
[2020-10-15 09:09] LABS: BASO % 0.5 % (0.0-1.0); EOS # 0.2 10^3/uL (0.0-0.5); EOS % 3.2 % (0.0-3.0); HEMATOCRIT 39.3 % (42.0-52.0); LYMPH # 1.4 10^3/uL (1.5-5.0); LYMPH % 23.5 % (24.0-44.0); MEAN CORPUSCULAR HEMOGLOBIN 32.6 pg (27.0-33.0); MEAN CORPUSCULAR HGB CONC 33.1 g/dl (32.0-36.5); MEAN CORPUSCULAR VOLUME 98.5 fl (80.0-96.0); MONO # 0.5 10^3/uL (0.0-0.8); MONO % 8.2 % (2.0-8.0); NEUTROPHILS # 3.8 10^3/uL (1.5-8.5); NEUTROPHILS % 64.3 % (36.0-66.0); PLATELET COUNT, AUTOMATED 132 10^3/uL (150-450); RED BLOOD COUNT 3.99 10^6/uL (4.30-6.10); WHITE BLOOD COUNT 5.9 10^3/uL (4.0-10.0)
[2020-10-15 09:32] LABS: BLOOD UREA NITROGEN 20 MG/DL (7-18); CALCIUM LEVEL 8.9 MG/DL (8.8-10.2); CARBON DIOXIDE LEVEL 38 MEQ/L (21-32); CHLORIDE LEVEL 97 MEQ/L (98-107); CREATININE FOR GFR 0.72 MG/DL (0.70-1.30); GLOMERULAR FILTRATION RATE > 60.0 (>35); GLUCOSE, FASTING 278 MG/DL (70-100); POTASSIUM SERUM 4.1 MEQ/L (3.5-5.1); SODIUM LEVEL 139 MEQ/L (136-145)
[2020-10-15 10:28] LABS: MAGNESIUM LEVEL 1.9 MG/DL (1.8-2.4)
--- NOTE | 2020-10-15 16:51 | DS.PDOC ---
Discharge Summary General Date of Admission Oct 14, 2020 at 10:45 Date of Discharge 10/15/2020 Attending Physician: JASON YOUSIF MD Discharge Summary PROCEDURES PERFORMED DURING STAY: [None]. ADMITTING DIAGNOSES: 1. Acute on chronic decompensated heart failure 2. Chronic atrial fibrillation 3. CAD S/P AMI in the past 4. Essential hypertension 5. First-degree AV block 6. NIDDM 7. HDL 8. Thoracic aortic aneurysm 9. Nonrheumatic mitral insufficiency and aortic insufficiency 10. GERD 11. Chronic back pain 12. Lumbar stenosis 13. Dysphagia DISCHARGE DIAGNOSES: 1. Chronic atrial fibrillation 2. Decompensated heart failure 3. CAD S/P AMI in the past 4. Essential hypertension 5. First-degree AV block 6. NIDDM 7. HDL 8. Thoracic aortic aneurysm 9. Nonrheumatic mitral insufficiency and aortic insufficiency 10. GERD 11. Chronic back pain 12. Lumbar stenosis 13. Dysphagia COMPLICATIONS/CHIEF COMPLAINT: CHF. HISTORY OF PRESENT ILLNESS: Mr. Cardenas is a 80-year-old male with significant past medical history presented to the ED with complaining of acute onset of shortness of breath. Denies having associated chest pain, fever, chills, cough, sputum production, but noted orthopnea feeling better with sitting up and some leg swelling. He is a patient of congestive heart failure in the last echo done was in 2019 with an ejection fraction of 45 and is on treatment of IV Lasix at home. HOSPITAL COURSE: The ED as patient was having shortness of breath and desaturating to upper 80s he was put on oxygen 2 L and was given IV Lasix 80 mg. He was eventually admitted to the hospital and was paced on 40 mg of IV twice a day Lasix. He was well diuresed his oxygen requirement has gone down and he eventually was saturating 96% on room air on the morning of discharge. Patient did have a 6 minute walk test to see if he is desaturating with activity and patient did well in that and was maintaining a saturation of 96 with activity. DISCHARGE MEDICATIONS: Please see below. ALLERGIES: Please see below. PHYSICAL EXAMINATION ON DISCHARGE: VITAL SIGNS: Please see below. GENERAL: Patient is alert oriented 3, no acute distress. CARDIOVASCULAR EXAMINATION: S1-S2 regular rate, no murmurs heard. RESPIRATORY EXAMINATION: Bilateral breath sounds heard, mild expiratory wheezes. ABDOMINAL EXAMINATION: Soft, nontender positive bowel sounds EXTREMITIES: No edema SKIN: Normal turgor, no rash NEUROLOGICAL EXAMINATION: No focal neurological deficits LABORATORY DATA: Please see below. IMAGING: PORTABLE CHEST X-RAY 10/14/2020 IMPRESSION: 1. Peripheral and basilar predominant interstitial thickening in both lungs, significantly worse than on the prior exams, which may represent worsening of underlying chronic interstitial lung disease, but superimposed acute processes may be present as well. 2. Persistent elevation of the right diaphragm and calcified pleural plaques again noted. CTA Chest With Contrast 10/14/2020 IMPRESSION: 1. No evidence of acute pulmonary embolism. Enlargement of the central pulmonary arteries indicative of pulmonary hypertension, unchanged from the prior exam. 2. 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 The contrast bolus was not timed for a complete assessment of the thoracic aorta. 3. Peripheral and basilar predominant interstitial thickening, consistent with chronic interstitial lung disease, increased compared to the prior exam. The pattern fits with usual interstitial pneumonia but the presence of calcified pleural plaques suggests asbestosis. 4. Mild, somewhat patchy ground-glass opacities in both lungs and small pleural effusions, not seen previously, which may represent a superimposed pneumonitis or mild edema. 5. Stable sub solid pulmonary nodule in the left upper lobe. Annual CT Chest should be performed for 5 years. (Reference: Petra) PROGNOSIS: Good ACTIVITY: [As tolerated]. DIET: 2 g sodium diet DISCHARGE PLAN: Home DISPOSITION: 01 Home, Self-Care. DISCHARGE INSTRUCTIONS: 1. Please follow with PCP in one week. 2. Please talk to the PCP regarding a pulmonology referral to make a diagnosis of COPD due to his smoking history and CT findings. 3. Taking medications regularly and continue to have a low sodium diet. ITEMS TO FOLLOWUP ON ON OUTPATIENT: 1. Follow-up with PCP in one week. DISCHARGE CONDITION: [Stable]. TIME SPENT ON DISCHARGE: Greater than 30 minutes. Vital Signs/I&Os Vital Signs Date Time Temp Pulse Resp B/P (MAP) Pulse Ox O2 Delivery O2 Flow Rate FiO2 10/15/20 09:15 60 92 Room Air 10/15/20 09:00 1.0 10/15/20 06:00 97.5 18 110/64 (79) I&O- Last 24 Hours up to 6 AM 10/15/20 05:59 Intake Total 270 ml Output Total 3920 ml Balance -3650 ml Laboratory Data Labs 24H Laboratory Tests 2 10/14/20 16:47: Bedside Glucose (Misc Panel) 140H 10/14/20 19:53: Bedside Glucose (Misc Panel) 146H 10/15/20 06:02: Bedside Glucose (Misc Panel) 157H 10/15/20 08:53: Immature Granulocyte % (Auto) 0.3, Neutrophils (%) (Auto) 64.3, Lymphocytes (%) (Auto) 23.5L, Monocytes (%) (Auto) 8.2H, Eosinophils (%) (Auto) 3.2H, Basophils (%) (Auto) 0.5, Neutrophils # (Auto) 3.8, Lymphocytes # (Auto) 1.4L, Monocytes # (Auto) 0.5, Eosinophils # (Auto) 0.2, Basophils # (Auto) 0.0, Nucleated Red Blood Cells % (auto) 0.0, Anion Gap 4L, Glomerular Filtration Rate > 60.0, Calcium Level 8.9, Magnesium Level 1.9 10/15/20 11:04: Bedside Glucose (Misc Panel) 189H CBC/BMP Laboratory Tests 10/15/20 08:53 FSBS Laboratory Tests Test 10/14/20 16:47 10/14/20 19:53 10/15/20 06:02 10/15/20 11:04 Range/Units Bedside Glucose (Misc Panel) 140 146 157 189 83-110 MG/DL Microbiology Microbiology 10/14/20 Respiratory Virus Panel (PCR) (EDWIGE) - Final, Complete 10/14/20 Blood Culture - Preliminary, Resulted No growth after 24 hours . All specim... Discharge Medications Scheduled Furosemide (Furosemide) 40 Mg Tablet, 40 MG PO DAILY, (Reported) Glimepiride (Glimepiride) 1 Mg Tablet, 1 MG PO DAILY, (Reported) Metformin HCl (Metformin HCl ER) 500 Mg Tab.er.24h, 500 MG PO BID, (Reported) Potassium Citrate (Potassium Citrate 10MEQ (Urocit-K)) 10 Meq Tablet.er, 1,080 MG PO DAILY, (Reported) 1080MG = 10MEQ Rivaroxaban (Xarelto) 20 Mg Tablet, 20 MG PO DAILY, (Reported) Scheduled PRN Oxycodone HCl/Acetaminophen (Oxycodone-Acetaminophen 5-325) 1 Each Tablet, 1 TAB PO Q4H PRN for PAIN, (Reported) TAKE ONE TO TWO TABS Allergies Coded Allergies: amoxicillin (Verified Allergy, Intermediate, unk, 11/15/19) pt states had unknown reaction from past GME ATTESTATION GME ATTESTATION My faculty preceptor for this patient encounter was physically present during the encounter and was fully available. All aspects of the patient interview, examination, medical decision making process, and medical care plan development were reviewed and approved by the faculty preceptor. The faculty preceptor is aware and concurs with the plan as stated in the body of this note and will attest to such by his/her cosignature. ATTENDING NOTE I, Jason Yousif MD, have independently examined this patient and performed my own physical exam, as well as reviewed the documentation and edited where necessary. I have discussed in detail with the resident / student the findings and plan of treatment as documented by the resident / student and edited their note. I agree with their findings and treatment plan and have edited their documentation. Total time spent on this patient including coordination of care, review of chart documentation and actual patient contact is around 35 minutes William Pearson MD Oct 15, 2020 16:50 JASON YOUSIF MD Oct 17, 2020 15:08
== END 2020-10-15 12:55 | disposition home or self-care (01) ==
LOC: M ED 06:06 → M ED INP 10:45 → ENRESERV 13:39 → M MSPAV 15:35
PROVIDERS: ADMIT Internal Medicine; ATTEND Internal Medicine
DX: I50.43 Acute on chronic combined systolic (congestive) and diastolic (congestive) heart failure (principal); I48.20 Chronic atrial fibrillation, unspecified; I25.10 Atherosclerotic heart disease of native coronary artery without angina pectoris; I25.2 Old myocardial infarction; I11.0 Hypertensive heart disease with heart failure; I44.0 Atrioventricular block, first degree; E11.9 Type 2 diabetes mellitus without complications; E78.5 Hyperlipidemia, unspecified; I71.2 Thoracic aortic aneurysm, without rupture; I08.0 Rheumatic disorders of both mitral and aortic valves; K21.9 Gastro-esophageal reflux disease without esophagitis; M54.5 Low back pain; G89.29 Other chronic pain; M48.061 Spinal stenosis, lumbar region without neurogenic claudication; R13.10 Dysphagia, unspecified; R06.02 Shortness of breath; J84.9 Interstitial pulmonary disease, unspecified; I27.20 Pulmonary hypertension, unspecified; Z95.5 Presence of coronary angioplasty implant and graft; Z87.891 Personal history of nicotine dependence; Z79.899 Other long term (current) drug therapy; Z79.84 Long term (current) use of oral hypoglycemic drugs; Z79.01 Long term (current) use of anticoagulants; Z88.0 Allergy status to penicillin
CPT/HCPCS: 36415; 71045; 71275; 80048; 80076; 82550; 82553; 83735; 83880; 84484; 85025; 85379; 87040; 87798; 93005; 93041; 94760; 96374; 96376; 99285; G0378; J1940; Q9967

== ENCOUNTER → 2020-11-07 | Outpatient (REF) | payer OTHER, MEDICAID ==
[2020-11-07 16:22] LABS: BASO % 0.5 % (0.0-1.0); EOS # 0.2 10^3/uL (0.0-0.5); EOS % 3.1 % (0.0-3.0); HEMATOCRIT 38.4 % (42.0-52.0); HEMOGLOBIN 12.5 g/dl (13.5-17.5); LYMPH # 1.8 10^3/uL (1.5-5.0); LYMPH % 29.1 % (24.0-44.0); MEAN CORPUSCULAR HEMOGLOBIN 32.1 pg (27.0-33.0); MEAN CORPUSCULAR HGB CONC 32.6 g/dl (32.0-36.5); MEAN CORPUSCULAR VOLUME 98.5 fl (80.0-96.0); MONO # 0.6 10^3/uL (0.0-0.8); MONO % 9.2 % (2.0-8.0); NEUTROPHILS # 3.5 10^3/uL (1.5-8.5); NEUTROPHILS % 57.8 % (36.0-66.0); PLATELET COUNT, AUTOMATED 122 10^3/uL (150-450); WHITE BLOOD COUNT 6.1 10^3/uL (4.0-10.0)
[2020-11-07 16:41] LABS: HEMOGLOBIN A1c 7.5 %
[2020-11-07 17:03] LABS: ALBUMIN 3.9 GM/DL (3.2-5.2); ALT/SGPT 30 U/L (12-78); BILIRUBIN,TOTAL 0.7 MG/DL (0.2-1.0); BLOOD UREA NITROGEN 16 MG/DL (7-18); CARBON DIOXIDE LEVEL 34 MEQ/L (21-32); CHLORIDE LEVEL 98 MEQ/L (98-107); CREATININE FOR GFR 0.76 MG/DL (0.70-1.30); GLOMERULAR FILTRATION RATE > 60.0 (>35); GLUCOSE, FASTING 185 MG/DL (70-100); POTASSIUM SERUM 4.7 MEQ/L (3.5-5.1); SODIUM LEVEL 137 MEQ/L (136-145); TOTAL PROTEIN 6.6 GM/DL (6.4-8.2)
== END ==
LOC: M SFHCCLAY 11:50
PROVIDERS: ATTEND Family Medicine
DX: E11.65 Type 2 diabetes mellitus with hyperglycemia (principal); I10 Essential (primary) hypertension
CPT/HCPCS: 80053; 83036; 84443; 85025; G0463

== ENCOUNTER 2021-01-05 13:48 | Inpatient (IN) | payer OTHER, MEDICAID ==
[~2021-01-05] VITALS: Ht 180.3 cm; Wt 74.5 kg
[~2021-01-05 13:48] MED LIST changes: +OMEP40CA4 PO; -OMEP40CA97 PO
[2021-01-05] MEDS ORDERED: ONDANSETRON 4MG/2ML VIAL IV ONE (14:05)
[2021-01-05] MEDS ORDERED: MORPHINE 2 MG/ML 1ML VIAL (J2270) IV PRN (14:05)
--- NOTE | 2021-01-05 14:27 | REP ---
INDICATION: FALL ON THINNERS COMPARISON: None. TECHNIQUE: Axial noncontrast images from the skull base to the thoracic inlet with coronal reformations. This CT examination was performed using the following dose reduction techniques: Automated exposure control, adjustment of mA and/or kv according to the patient's size, and use of iterative reconstruction technique. FINDINGS: Atrophy with periventricular leukomalacia and microvascular ischemic changes are appreciated. The ventricles and sulci are symmetric. Vazquez-white differentiation is maintained. There is no evidence for acute intracranial hemorrhage, mass/mass effect, pathology or infarction. No extra-axial fluid collection. Calvarium is intact. Paranasal sinuses and mastoid air cells are clear. IMPRESSION: Atrophy and microvascular ischemic changes. No acute intracranial hemorrhage, infarction, or mass/mass effect. <Electronically signed by Ramírez Dc > 01/05/21 [id number]
--- NOTE | 2021-01-05 14:29 | REP ---
INDICATION: FALL ON THINNERS COMPARISON: CT neck dated 11/10/2015 TECHNIQUE: Axial noncontrast images from the skull base to the thoracic inlet with coronal and sagittal re-formations This CT examination was performed using the following dose reduction techniques: Automated exposure control, adjustment of mA and/or kv according to the patient's size, and use of iterative reconstruction technique. FINDINGS: Advanced osteopenia and marked, severe diffuse degenerative disc osteophyte complexes noted throughout the cervical spine with relatively moderate progression as compared to neck CT dated 2015. There is no evidence for acute fracture/compression injury or subluxation. Spinal canal is grossly patent. Paravertebral soft tissues are within normal limits. IMPRESSION: Advanced osteopenia and degenerative spondylosis. No acute fracture/compression injury or subluxation appreciated. <Electronically signed by Ramírez Dc > 01/05/21 1370
--- NOTE | 2021-01-05 14:37 | REP ---
INDICATION: CP COMPARISON: 10/14/2020, 02/16/2019 TECHNIQUE: Axial noncontrast images from the thoracic inlet to the upper abdomen with coronal and sagittal reformations. This CT examination was performed using the following dose reduction techniques: Automated exposure control, adjustment of mA and/or kv according to the patient's size, and use of iterative reconstruction technique. FINDINGS: Acute essentially nondisplaced fractures are identified involving the posterolateral right 7th, 8th, and 11th ribs with adjacent small right pleural effusion, and early right lower lobe pulmonary parenchymal contusion. There is a small amount of gas adjacent to the fractures which appears to be in the pleural space suggesting a miniscule pneumothorax. The lung andrade also demonstrate underlying chronic interstitial changes and partially calcified pleural plaques suggesting chronic asbestosis. Tracheobronchial tree is patent. There is a saccular aneurysm along the lateral margin of the aortic arch which is relatively unchanged through examinations dating 2019. Underlying atherosclerotic changes to the thoracic aorta and coronary arteries with cardiomegaly noted. IMPRESSION: 1. Right-sided rib fractures with small adjacent pleural effusion, possible miniscule pneumothorax, and right lower lobe early pulmonary parenchymal contusion. 2. 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 3. Chronic pleuroparenchymal changes. <Electronically signed by Ramírez Dc > 01/05/21 1126
--- NOTE | 2021-01-05 14:41 | REP ---
INDICATION: abd pain COMPARISON: 07/10/2019 TECHNIQUE: Axial noncontrast images from the lung bases to the pubic symphysis with coronal and sagittal reformations. This CT examination was performed using the following dose reduction techniques: Automated exposure control, adjustment of mA and/or kv according to the patient's size, and use of iterative reconstruction technique. FINDINGS: Right 7th, 8th, and 11th rib fractures with small pleural effusion and possible pneumothorax as well as mild early right lower lobe pulmonary parenchymal contusion. Hepatomegaly. Calcifications involving the spleen consistent with prior granulomatous disease. Pancreas, gallbladder, bilateral adrenal glands and kidneys are relatively normal for noncontrast evaluation. The enteric system is without obstruction or obvious acute inflammatory process. Pelvis demonstrates normal bladder and prostatomegaly. Small amount of pelvic free fluid cannot be excluded. Atherosclerotic changes to the aorta and vasculature noted without obvious aneurysm. Musculoskeletal structures demonstrate advanced osteopenia and diffuse degenerative changes without obvious acute musculoskeletal injury. IMPRESSION: 1. Traumatic changes at the right lung base as described above. 2. Limited evaluation of the abdomen and pelvis due to lack of contrast and technical factors. No obvious acute abdominopelvic pathology or trauma. 3. Cannot exclude small amount of pelvic free fluid of uncertain etiology or significance, but essentially unchanged compared to 2019. <Electronically signed by Ramírez Dc > 01/05/21 0991
--- NOTE | 2021-01-05 15:37 | REP ---
INDICATION: FALL ON THINNERS COMPARISON: None. TECHNIQUE: AP and lateral views of the right humerus FINDINGS: Age-related osteopenia and degenerative changes are appreciated. No obvious acute fracture or dislocation. Increased density fluid collection at the level of the proximal humerus cannot be excluded and may reflect hematoma. Clinical correlation is recommended and ultrasound may be considered for further investigation if necessary. IMPRESSION: 1. No acute fracture or dislocation. 2. Cannot exclude soft tissue hematoma. Correlation with physical examination is recommended and if necessary ultrasound should be considered. <Electronically signed by Ramírez Dc > 01/05/21 [id number]
--- NOTE | 2021-01-05 15:38 | REP ---
INDICATION: FALL ON THINNERS COMPARISON: None. TECHNIQUE: AP, lateral, bilateral oblique views of the right elbow. FINDINGS: Advanced osteoarthritic degenerative changes are appreciated with overlying soft tissue swelling. Lateral view suggests joint effusion. Subtle injury to the radial head cannot be excluded. IMPRESSION: Advanced osteoarthritic degenerative changes with soft tissue swelling and possible effusion. Subtle radial head injury cannot be excluded. <Electronically signed by Ramírez Dc > 01/05/21 [id number]
[2021-01-05] MEDS ORDERED: BISACODYL 10 MG SUPP PR PRN (16:10)
[2021-01-05] MEDS ORDERED: NALOXONE INJ 0.4MG/1ML VIAL (J2310 PER 1MG) IV PRN (16:10)
[2021-01-05] MEDS ORDERED: DEXTROSE 50% 50 ML SYRINGE IV PRN (16:10)
[2021-01-05] MEDS ORDERED: GLUCOSE 4GM CHEW TABLET PO PRN (16:10)
[2021-01-05] MEDS ORDERED: MOM 30ML SUSPENSION UDC PO PRN (16:10)
[2021-01-05] MEDS ORDERED: SENOKOT S TAB PO PRN (16:10)
[2021-01-05] MEDS ORDERED: MIRALAX *UNIT DOSE* 17GM PACKET PO PRN (16:10)
[2021-01-05] MEDS ORDERED: PERCOCET 5MG/325MG TAB PO PRN ×2 (16:10)
[2021-01-05] MEDS ORDERED: GLUCAGON INJ 1MG VIAL SC PRN (16:10)
[2021-01-05] MEDS ORDERED: LIDOCAINE 2% W/EPINEPHRINE 20ML VIAL **PRES FREE INJ ONE (16:15)
[2021-01-05] MEDS ORDERED: MORPHINE 4 MG/ML 1ML VIAL/SYRINGE (J2270) IV ONE (16:15)
--- NOTE | 2021-01-05 16:16 | REP ---
INDICATION: FALL ON THINNERS COMPARISON: None. TECHNIQUE: Frontal view of the chest with multiple views of the right hemithorax. FINDINGS: Frontal view of the chest demonstrates chronic interstitial changes and elevation to the right hemidiaphragm. Multiple views of the right hemithorax demonstrates right 10th rib fracture are ready identified on recent chest CT. The nondisplaced right 7th and 8th rib fractures identified on CT are poorly visualized by radiographic evaluation. Chronic resorptive changes to the distal right clavicle noted. IMPRESSION: 1. Right 10th rib fracture consistent with findings on chest CT. Known right 7th and 8th rib fractures poorly identified by current exam. <Electronically signed by Ramírez Dc > 01/05/21 [id number]
--- NOTE | 2021-01-05 16:26 | REP ---
INDICATION: trauma. COMPARISON: 01/05/2021 at 3 p.m. the frontal view obtained as part of a rib series. The prior rib series and prior CT showed right 7th 8th and 10th rib fractures. TECHNIQUE: Portable FINDINGS: The technique utilized in obtaining the radiograph has magnified the cardiac silhouette and attenuated the interstitial markings. There is cardiomegaly accentuated by technique. There is an increase in the interstitial markings essentially unchanged from the prior exam when the technical differences between the examinations are taken into consideration. There is chronic elevation of the diaphragmatic surface of the right lung. No acute patchy parenchymal opacities or pleural effusions have developed on this limited portable exam. Once again, rib fractures cannot be identified on this exam. Please refer to the CT obtained today and if necessary obtain chest CT. IMPRESSION: Global cardiomegaly and increased interstitial markings as described above. The increased interstitial markings have been seen on multiple prior exam consistent with chronic underlying lung disease. Superimposed acute interstitial edema should be clinically evaluated for. Other findings and suggestions as described above. <Electronically signed by Yong Chowdhury > 01/05/21 [id number]
[2021-01-05 16:41] LABS: HEMATOCRIT 37.9 % (42.0-52.0); HEMOGLOBIN 12.3 g/dl (13.5-17.5); MEAN CORPUSCULAR HEMOGLOBIN 32.5 pg (27.0-33.0); MEAN CORPUSCULAR HGB CONC 32.5 g/dl (32.0-36.5); PLATELET COUNT, AUTOMATED 119 10^3/uL (150-450); RED BLOOD COUNT 3.79 10^6/uL (4.30-6.10); WHITE BLOOD COUNT 8.1 10^3/uL (4.0-10.0)
[2021-01-05 17:10] LABS: ALT/SGPT 40 U/L (12-78); BILIRUBIN,TOTAL 0.9 MG/DL (0.2-1.0); BLOOD UREA NITROGEN 20 MG/DL (7-18); CALCIUM LEVEL 8.7 MG/DL (8.8-10.2); CARBON DIOXIDE LEVEL 33 MEQ/L (21-32); CHLORIDE LEVEL 100 MEQ/L (98-107); CREATININE FOR GFR 0.82 MG/DL (0.70-1.30); GLOMERULAR FILTRATION RATE > 60.0 (>35); GLUCOSE, FASTING 139 MG/DL (70-100); POTASSIUM SERUM 4.2 MEQ/L (3.5-5.1); SODIUM LEVEL 139 MEQ/L (136-145); TOTAL PROTEIN 6.7 GM/DL (6.4-8.2)
--- NOTE | 2021-01-05 17:30 | HPEPDOC ---
[facility] Medical History & Physical Date of Admission Jan 05, 2021 Date of Service: Jan 05, 2021 History and Physical addendum to H&P: 80 y/o M DNR/DNI w pmh significant for diastolic&systolic chf EF 45%, chronic Afib on Xarelto, HTN, DM, Aortic arch saccular aneurysm, chronic asbestosis, 1st degree AVBlock, GERD, lumbar stenosis, recently placed on holter monitor due to c/o sob and bradycardia removed 4-5 days ago, holter to be returned to Dr. Jorge's office presents to the ER after falling off his tractor and landing on his right side and elbow while trying to put gas at 1230pm today, unwitness without LOC. Negative CT head, CT cervical Spine,CT abdomen, but CT chest: right 7th,8th, 11th nondisplaced rib fracture, early small RLL pulmonary contusion, and miniscule PTX. Hospitalist was asked to admit for pain control, rehab services, and monitoring of pulm contusion/miniscule PTX. Per General Surgeon distributor publications, Dr. Urbano, ok to resume on chronic xarelto. IMPRESSION: Traumatic injury due to fall right 7th,8th, 11th nondisplaced rib fractures early small RLL pulmonary contusion miniscule PTX diastolic&systolic chf EF 45%, compensated chronic Afib on Xarelto, rate-controlled/bradycardic HTN, DM, Aortic arch saccular aneurysm, chronic asbestosis, 1st degree AVBlock, GERD, lumbar stenosis Hard of Hearing PLAN: admit as inpt for pain control, rehab services, monitoring for worsening pulmonary contusion and ptx daily cxr to evaluate ptx incentive spirometry prn pain meds resume xarelto assisted ambulation/fall precautions. Vital Signs Vital Signs Date Time Temp Pulse Resp B/P (MAP) Pulse Ox O2 Delivery O2 Flow Rate FiO2 01/05/21 16:26 16 01/05/21 14:45 01/05/21 13:48 97.6 53 94 Room Air Laboratory Data Labs 24H Laboratory Tests 2 01/05/21 16:30: Nucleated Red Blood Cells % (auto) 0.0, Anion Gap 6L, Glomerular Filtration Rate > 60.0, Calcium Level 8.7L, Total Bilirubin 0.9, Aspartate Amino Transf (AST/SGOT) 40H, Alanine Aminotransferase (ALT/SGPT) 40, Alkaline Phosphatase 93, Total Protein 6.7, Albumin 4.0, Albumin/Globulin Ratio 1.5 01/05/21 16:47: CBC/BMP Laboratory Tests 01/05/21 16:30 Home Medications Scheduled Furosemide (Furosemide) 40 Mg Tablet, 40 MG PO DAILY Glimepiride (Glimepiride) 1 Mg Tablet, 1 MG PO DAILY Metformin HCl (Metformin HCl ER) 500 Mg Tab.er.24h, 500 MG PO BID Potassium Citrate (Potassium Citrate 10MEQ (Urocit-K)) 10 Meq Tablet.er, 1,080 MG PO DAILY 1080MG = 10MEQ Rivaroxaban (Xarelto) 20 Mg Tablet, 20 MG PO DAILY Scheduled PRN Oxycodone HCl/Acetaminophen (Oxycodone-Acetaminophen 5-325) 1 Each Tablet, 1 TAB PO Q4H PRN for PAIN TAKE ONE TO TWO TABS Allergies Coded Allergies: amoxicillin (Verified Allergy, Intermediate, unk, 11/15/19) pt states had unknown reaction from past A-FIB/CHADSVASC A-FIB History Current/History of A-Fib/PAF?: Yes Current PO Anticoag Therapy: Yes Age/Risk Factor Scoring CHADSVASC: CHADSVASC Response (Comments) Value Age Risk Factor Age >/= 75 years old 2 Gender Risk Factor Male 0 Hx of CHF Yes 1 Hx of HTN Yes 1 Hx of Stroke/TIA/or VTE No 0 Hx of Diabetes Yes 1 Hx of Vascular Disease No 0 Total 5 Treatment Treatment ordered: Rivaroxaban MIRACLE SIMPSON MD Jan 05, 2021 17:29
[2021-01-05 17:45] LABS: RSV AMPLIFICATION NEGATIVE (NEGATIVE)
[2021-01-05] MEDS ORDERED: BOOSTRIX/ADACEL VACCINE (DIPHTH/PERTUSS/ACELL/TETANUS) 0.5ML SYR IM ONE (18:05)
[2021-01-05 18:50] VITALS: BP 123/67
[2021-01-05] MEDS: HumaLOG INSULIN (NovoLOG) PER UNIT SC SCH ×2 (19:06→21:00)
--- NOTE | 2021-01-05 19:38 | HPE ---
HISTORY AND PHYSICAL DATE OF ADMISSION: 01/05/2021 CHIEF COMPLAINT: "I fell over on my tractor." HISTORY OF PRESENT ILLNESS: An 80-year-old, DO NOT RESUSCITATE, DO NOT INTUBATE male with history of chronic systolic and diastolic congestive heart failure, ejection fraction of 45%, chronic atrial fibrillation, has been having episodes of bradycardia and recently had a Holter monitor placed about 1-1/2 months ago, had been having shortness of breath and fluid buildup according to the son. The Holter monitor was removed about 4-5 days ago and the son was supposed to bring this to Dr. Jorge' office for review when patient presented today to the emergency room after a traumatic injury when he was in his tractor, fell off, landed on his elbow and right-sided ribs after he was trying to put gas on it around 12:30 noon today. The patient does not remember any head trauma, no loss of consciousness. He otherwise did not have any palpitations, lightheadedness, dizziness, near syncopal episode. He felt about 2-3 days ago when his heart rate was 56 but his legs were tingly but none today. The patient otherwise denies any shortness of breath today, a feeling of epigastric discomfort, nausea, vomiting, chest pressure, tightness or any radiation up the neck and down the left arm. He was found to have a right elbow contusion and laceration, pulmonary contusion, multiple rib fractures, 7, 8 and 11, nondisplaced and a very small pneumothorax. Per Dr. Urbano, trauma surgeon combat control, the patient is to be admitted for further observation. He may be resumed back on his chronic Xarelto despite small confusion. The patient otherwise had no other traumatic injuries. CT, chest, abdomen, pelvis, cervical spine, CT, head have all been reviewed. Hospitalist service was asked to admit the patient for pain control, ARU evaluation as well as monitoring for the pneumothorax and right lower lobe pulmonary contusion. PAST MEDICAL HISTORY: 1. Chronic systolic and diastolic heart failure. 2. Chronic atrial fibrillation on Xarelto. 3. CAD, status post [place]. 4. Essential hypertension. 5. First degree AV block. 6. Noninsulin dependent type 2 diabetes. 7. Hyperlipidemia. 8. Thoracic aortic aneurysm with a saccular aneurysm in the aortic arch. 9. Nonrheumatic mitral insufficiency and aortic insufficiency. 10. Gastroesophageal reflux disease. 11. Chronic back pain. 12. Lumbar stenosis. 13. Dysphagia, evaluated by ENT, needs vocal cord specialist. 14. By CT, chest, patient has chronic asbestosis and aortic arch saccular aneurysm. PAST SURGICAL HISTORY: 1. Coronary stents, August,. 2. Tonsillectomy. 3. Deviated septum. 4. Hernia repair. 5. Circumcision. 6. L3-L5 transpedicular decompression by Dr. Keller, April,. 7. Throat surgery by Dr. Branham, ENT, March,. 8. Colonoscopy by Dr. Martínez, September, 2013 and 2017. HOME MEDICATIONS: 1. Glimepiride 1 mg daily. 2. Metformin 500 mg b.i.d. 3. Oxycodone-acetaminophen 5/325 one tablet q.4 as needed for pain. 4. Potassium citrate 1080 mg p.o. daily. 5. Lasix 40 daily. 6. Xarelto 20 mg daily. SOCIAL HISTORY: Lives with his son. He is DO NOT RESUSCITATE, DO NOT INTUBATE. Healthcare proxy is Yosvany Cardenas, . 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 Drinks occasionally beer. Admits to recreational drug use. The patient has long-term wood burning system for heat at his home. FAMILY HISTORY: Father diseased, age 75 with aneurysm. Mother , age 82 with diabetes. Siblings, two brothers, three sisters, alive, Parkinson's, Alzheimer's dementia and heart disease. The patient has three sons. The healthcare proxy is Yosvany Cardenas. Phone number is . REVIEW OF SYSTEMS: As per HPI, 12-point system otherwise negative. ALLERGIES: AMOXICILLIN CAUSING RASH. PHYSICAL EXAMINATION: VITAL SIGNS: Temperature 97.6, pulse 53, bradycardia, irregular, respiratory rate 18, blood pressure 130/70, 94% on room air. GENERAL: The patient is awake, alert, very hard of hearing. He is answering questions appropriately. Poor dentition. Dry mucous membranes. Chapped lips. No racoon's eyes or ecchymotic areas. No hematoma noted on the scalp. The patient has no JVD, no thyromegaly or cervical lymphadenopathy. He had significant ecchymosis at the right forearm with a laceration at the right elbow. LUNGS: Clear to auscultation, no wheezing, rales or rhonchi. HEART: S1, S2, bradycardic, irregularly irregular. ABDOMEN: Soft, nontender, nondistended. Positive bowel sounds. EXTREMITIES: No cyanosis, clubbing or pitting edema. SKIN: The patient has ecchymotic area in the right forearm and laceration of the right elbow and some ecchymotic areas in the right lower extremity. The patient has trace lower extremity edema bilaterally. LABORATORY DATA: White count 8.1, hemoglobin 12, hematocrit 37, platelet count 119. Sodium 139, potassium 4.2, chloride 100, bicarb 33, BUN 20, creatinine 0.82, glucose 139, calcium 8.7, T bili 0.9, AST 40, ALT 40, alk phos 93, total protein 6.7, albumin of 4. Coronavirus is pending. IMAGING STUDIES: CT of the head: No acute intracranial pathology, no hemorrhage. CT of chest: Acute nondisplaced fractures in the posterolateral right 7th, 8th, 11th rib with small right pleural effusion, early right lower lobe pleural parenchymal contusion, small amount of gas adjacent to the fractures, appear to be in the pleural space suggesting a miniscule pneumothorax. Lung andrade have chronic interstitial changes and partially calcified pleural plaque suggesting chronic asbestosis, saccular aneurysm along the lateral margin of the aortic arch, unchanged from prior study in 2019. CT, abdomen and pelvis shows hepatomegaly, calcifications involving the spleen, consistent with prior granulomatous disease. A small amount of pelvic free fluid cannot be excluded, osteopenia of the musculoskeletal structures, diffuse degenerative changes without acute musculoskeletal injury. Traumatic changes of the right lung base with small pulmonary contusion, no acute abdominal-pelvic pathology or trauma. CT, cervical spine: Advanced osteopenia, degenerative spondylosis, no acute fracture, compression injury or subluxation appreciated. Right humeral x-ray: Soft tissue hematoma at the right elbow with increased fluid collection at the level of the proximal humerus. CT of the head: Atrophy and microvascular ischemic changes, no acute intracranial hemorrhage, infarct, mass or mass effect. Right elbow: Complete advanced osteoarthritis with soft tissue swelling and possible effusion. A subtle radial head injury cannot be excluded. ASSESSMENT AND PLAN: This is an 80-year-old male with chronic atrial fibrillation, systolic and diastolic congestive heart failure, ejection fraction of 40%, had a traumatic injury while he was putting gas into his tractor and fell over on his right side, sustaining multiple rib fractures on the right, 7th, 8th, 11th rib which were nondisplaced as well as an early right lower lobe pulmonary contusion and a miniscule pneumothorax on the right in a setting of chronic asbestosis. The patient is being admitted as an inpatient for two midnights for pain control, possible ARU admission with ARU screens and monitoring for any worsening pulmonary contusion or bleed. 1. Multiple rib fractures, status post traumatic injury. Patient has right 7th, 8th and 11th rib. Incentive spirometry. Percocet 1-2 tablets and morphine for breakthrough pain. PT, OT have been consulted. Assisted ambulation, fall precautions and ARU screen. Bowel regimen and DVT prophylaxis with Xarelto. 2. Right elbow laceration. ER physician, Dr. Freitas has placed stitched into the right elbow. The patient has hematoma in the right forearm but safe to continue Xarelto for now. Pain control with Percocet 1-2 tablets and morphine as needed. Narcan if patient develops significant respiratory distress. 3. Small right lower lobe pulmonary contusion. Monitor for worsening symptoms. 4. Miniscule pneumothorax. Repeat chest x-ray, PA and lateral daily to be reviewed by trauma surgeon. 5. Chronic asbestosis. No acute issues. 6. Chronic systolic and diastolic congestive heart failure, compensated, EF of 45%. Last echo 02/16/2019. 7. Chronic atrial fibrillation, currently bradycardic at the bedside telemetry. We will put on telemetry overnight and hold medications. The patient remains bradycardic. The patient may be resumed back on his home dose of Xarelto. 8. History of CAD, [place]. Cycle cardiac markers if patient continues to have chest pains. 9. Hypertension. Currently controlled. Resume home medications with holding parameters. 10. Noninsulin dependent diabetes. Hold oral hypoglycemics, place on sliding scale, consistent carbohydrate diet. Fingersticks with coverage per [facility] protocol. 11. Thoracic aortic aneurysm and aortic arch saccular aneurysm. Monitor patient's blood pressure. No signs of leakage according to CT, chest. 12. History of nonrheumatic mitral insufficiency and aortic insufficiency, chronic. 13. Gastroesophageal reflux disease, PPI. 14. Chronic back pain with lumbar stenosis, chronic. 15. Code status: DO NOT RESUSCITATE, DO NOT INTUBATE. 16. Diet: Consistent carbohydrate, 2 gm sodium with 2 liter fluid restriction. Strict Is and Os and daily weights. The patient's healthcare proxy is a son, Yosvany Cardenas. Phone number is . [facility]
[2021-01-05] MEDS: MORPHINE 4 MG/ML 1ML VIAL/SYRINGE (J2270) IV PRN (20:21)
[2021-01-06] MEDS: MORPHINE 4 MG/ML 1ML VIAL/SYRINGE (J2270) IV PRN (05:02)
[2021-01-06 06:00] VITALS: BP 116/65
[2021-01-06 06:38] LABS: HEMATOCRIT 36.8 % (42.0-52.0); HEMOGLOBIN 11.8 g/dl (13.5-17.5); MEAN CORPUSCULAR HEMOGLOBIN 32.5 pg (27.0-33.0); MEAN CORPUSCULAR HGB CONC 32.1 g/dl (32.0-36.5); MEAN CORPUSCULAR VOLUME 101.4 fl (80.0-96.0); PLATELET COUNT, AUTOMATED 115 10^3/uL (150-450); RED BLOOD COUNT 3.63 10^6/uL (4.30-6.10); WHITE BLOOD COUNT 7.4 10^3/uL (4.0-10.0)
[2021-01-06 06:54] LABS: HEMOGLOBIN A1c 6.9 %
[2021-01-06 07:09] LABS: BLOOD UREA NITROGEN 20 MG/DL (7-18); CALCIUM LEVEL 8.2 MG/DL (8.8-10.2); CARBON DIOXIDE LEVEL 30 MEQ/L (21-32); CHLORIDE LEVEL 101 MEQ/L (98-107); CHOLESTEROL LEVEL 183 MG/DL (<200); CHOLESTEROL RISK RATIO 2.815 (<5); CREATININE FOR GFR 0.68 MG/DL (0.70-1.30); GLOMERULAR FILTRATION RATE > 60.0 (>35); GLUCOSE, FASTING 122 MG/DL (70-100); HDL CHOLESTEROL 65 MG/DL (>40); LDL CHOLESTEROL 104 MG/DL (<100); NON-HDL-C 118 MG/DL; POTASSIUM SERUM 4.1 MEQ/L (3.5-5.1); SODIUM LEVEL 135 MEQ/L (136-145); TRIGLYCERIDES LEVEL 70 MG/DL (<150)
--- NOTE | 2021-01-06 08:19 | REP ---
INDICATION: SMALL PNEUMOTHORAX CHECK FOR PROGRESSION FALL/RIB FX COMPARISON: None. TECHNIQUE: AP and cross-table lateral FINDINGS: Cardiomegaly and diffuse chronic interstitial changes. Scattered atelectasis cannot be excluded. Chronic elevation to the right hemidiaphragm again noted. No obvious pneumothorax. Known rib fractures poorly evaluated by current exam. IMPRESSION: Chronic and superimposed pleuroparenchymal changes. No obvious pneumothorax. <Electronically signed by Ramírez Dc > 01/06/21 [id number]
[2021-01-06] MEDS: HumaLOG INSULIN (NovoLOG) PER UNIT SC SCH ×4 (09:06→20:44)
[2021-01-06] MEDS: FUROSEMIDE 40 MG TAB PO SCH (09:06)
[2021-01-06] MEDS: RIVAROXABAN 20 MG TAB (XARELTO) PO SCH (09:06)
[2021-01-06] MEDS: ACETAMINOPHEN 500 MG TAB PO SCH ×3 (09:09→20:55)
[2021-01-06] MEDS: traMADol 50 MG TAB PO PRN ×2 (09:09→17:31)
--- NOTE | 2021-01-06 10:21 | IPNPDOC ---
Subjective Date Seen The patient was seen on 01/06/21. Subjective Chief Complaint/HPI Mr. Cardenas is an 80 year old male with CAD s/p OR, atrial fibrillation on Xarelto, and DM who had a mechanical fall, then found to have rib fractures and a possible small pneumothorax. This morning, he still had pain in his ribs. Objective Physical Examination General Exam: Positive: Alert, Cooperative Eye Exam: Negative: Sclera icteric ENT Exam: Positive: Atraumatic Neck Exam: Positive: Supple Chest Exam: Positive: Clear to auscultation; Negative: Wheezing Heart Exam: Positive: Rate Normal, Irregular Rhythm Abdomen Exam: Positive: Normal bowel sounds, Soft; Negative: Tenderness Extremity Exam: Negative: Edema Neuro Exam: Positive: Normal Speech Psych Exam: Positive: Mental status NL, Mood NL Assessment /Plan Assessment Mr. Cardenas is an 80 year old male with CAD s/p OR, atrial fibrillation on Xarelto, and DM who had a mechanical fall, then found to have rib fractures and a possible small pneumothorax. Patient will be put on a pain control regimen and started on incentive spirometry. Trauma is following and monitoring possible small pneumothorax. Patient is doing okay at room air. Otherwise, pending PT/OT. Plan/VTE VTE Prophylaxis Ordered?: Yes Plan 1. Traumatic rib fracture -Seen on ribs 7, 8, and 11 -Scheduled acetaminophen 1000mg TID -PRN tramadol for break through pain -Incentive spirometry 2. Right elbow laceration -ER physician, Dr. Freitas placed stitches -There is hematoma, to be monitored 3. Small pneumothorax -Trauma surgeon following, recommendations appreciated -Repeat imaging negative for pneumothorax 4. Chronic combined systolic and diastolic CHF -Echocardiogram 45% in 02/2019 5. Atrial fibrillation -Not in RVR -Continue Xarelto 6. Diabetes mellitus -Continue sliding scale insulin 7. DVT ppx -Xarelto Disposition: Pending pain control and PT/OT VS, I&O, 24H, Fishbone Vital Signs/I&O Vital Signs Date Time Temp Pulse Resp B/P (MAP) Pulse Ox O2 Delivery O2 Flow Rate FiO2 01/06/21 09:39 18 01/06/21 06:00 97.7 66 116/65 (82) 91 Room Air I&O- Last 24 Hours up to 6 AM 01/06/21 06:00 Output Total 400 ml Balance -400 ml Laboratory Data 24H LABS Laboratory Tests 2 01/05/21 16:30: Nucleated Red Blood Cells % (auto) 0.0, Anion Gap 6L, Glomerular Filtration Rate > 60.0, Calcium Level 8.7L, Total Bilirubin 0.9, Aspartate Amino Transf (AST/SGOT) 40H, Alanine Aminotransferase (ALT/SGPT) 40, Alkaline Phosphatase 93, Total Protein 6.7, Albumin 4.0, Albumin/Globulin Ratio 1.5 01/05/21 16:47: Coronavirus (COVID-19)(PCR) NEGATIVE, Influenza Type A (RT-PCR) NEGATIVE, Influe nza Type B (RT-PCR) NEGATIVE, Respiratory Syncytial Virus (PCR) NEGATIVE 01/05/21 19:01: Bedside Glucose (Misc Panel) 152H 01/05/21 21:28: Bedside Glucose (Misc Panel) 150H 01/06/21 06:23: Nucleated Red Blood Cells % (auto) 0.0, Anion Gap 4L, Glomerular Filtration Rate > 60.0, Estimated Mean Plasma Glucose 151H, Hemoglobin A1c 6.9, Calcium Level 8.2L, Triglycerides Level 70, Total Cholesterol 183, LDL Cholesterol 104H, Non- HDL Cholesterol (LDL + VLDL) 118, Total HDL Cholesterol 65, Cholesterol/HDL Ratio 2.815, Thyroid Stimulating Hormone (TSH) 1.240 CBC/BMP Laboratory Tests 01/05/21 16:30 01/06/21 06:23 DEBBIE BLACKWOOD DO Jan 06, 2021 10:21
--- NOTE | 2021-01-06 10:33 | CR ---
CONSULTATION DATE: 01/06/2021 REASON FOR CONSULTATION: Fall. HISTORY OF PRESENT ILLNESS: The patient is an 80-year-old male who presented to the hospital after falling off the side of his tractor, he claims it was about six feet in height, he was trying to pour gas in it and he fell off and landed on his side, pushing his right elbow into his chest. He came into the Emergency Room and was found to have a laceration to the right elbow that was sutured up in the ER. He also had right 7th, 8th and 11th rib fractures as well as a possible contusion and a miniscule pneumothorax. Due to his extensive medical history, he was admitted to the Medical Service overnight. I told them they could continue on with his anticoagulation due to his atrial fibrillation and will repeat a chest x-ray this morning and go from there. This morning the patient denies any problems with his breathing. No coughing or shortness of breath. He is having some significant pain, therefore he has not been out of bed yet but other than the pain no complaints. A repeat chest x-ray is still pending for this morning. PAST MEDICAL HISTORY: 1. Atrial fibrillation. 2. Hypertension. 3. Diabetes. 4. Aortic arch aneurysm. 5. Chronic asbestosis. 6. First degree AV block. 7. GERD. 8. Lumbar stenosis. 9. Hard of hearing. PAST SURGICAL HISTORY: 1. Coronary stents in August 2005. 2. Tonsillectomy. 3. Deviated septum repair. 4. Hernia repair. 5. Circumcision. 6. Lumbar decompression. 7. Throat surgery. 8. Colonoscopies. ALLERGIES: Amoxicillin. HOME MEDICATIONS: Please see med rec. SOCIAL HISTORY: Denies drug, alcohol or tobacco abuse. FAMILY HISTORY: Noncontributory. REVIEW OF SYSTEMS: Pertinent positives and negatives as stated in the HPI. PHYSICAL EXAMINATION: GENERAL: A and O x3, in no acute distress. VITAL SIGNS: Temperature 97.7, pulse is 66, respirations are 18, blood pressure is 116/65. Pulse oximetry 91% on room air. HEENT: Pupils equally round, reactive to light and accommodation. HEART: S1 and S2, regular rate and rhythm. LUNGS: Clear to auscultation bilaterally. ABDOMEN: Soft, nontender and nondistended. EXTREMITIES: No cyanosis, clubbing or edema in the lower extremities. Right upper extremity, right elbow has a dressing in place. There is a laceration. LABORATORY DATA: White count is 7.4, hemoglobin is 11.8, platelets are 115,000, potassium 4.1, creatinine 0.68. IMAGING: CT of the chest showed right sided rib fractures with small adjacent pleural effusion, possible meniscal pneumothorax, right lower lobe early pulmonary parenchymal contusion, right 7th, 8th and 11th ribs with adjacent small right pleural effusion. Chest x-ray showed global cardiomegaly, increased intersitial markings, increased interstitial markings have been seen on multiple prior exams consistent with chronic underlying lung disease, superimposed acute interstitial edema should be clinically evaluated for other findings and suggestions as described. ASSESSMENT AND PLAN: The patient is an 80-year-old male, status post traumatic fall off of a tractor tire, currently with a right arm laceration and right rib fractures with pulmonary contusion. Recommendation at this time is incentive spirometer, pain control, PT/OT with encouraging ambulation. We will repeat his x-ray this morning which he is heading downstairs for when I saw him. As long as that is stable, then he will be stable for discharge once he is cleared for medicine and cleared from PT. He can follow-up with the Surgery Service as needed. Otherwise, just incentive spirometry and pain control upon discharge.
[2021-01-06 13:39] VITALS: BP 145/78
[2021-01-06 22:00] VITALS: BP 114/64
[2021-01-07 06:00] VITALS: BP 116/65
[2021-01-07 06:35] LABS: HEMATOCRIT 37.4 % (42.0-52.0); HEMOGLOBIN 11.9 g/dl (13.5-17.5); MEAN CORPUSCULAR HEMOGLOBIN 32.1 pg (27.0-33.0); MEAN CORPUSCULAR HGB CONC 31.8 g/dl (32.0-36.5); MEAN CORPUSCULAR VOLUME 100.8 fl (80.0-96.0); PLATELET COUNT, AUTOMATED 112 10^3/uL (150-450); RED BLOOD COUNT 3.71 10^6/uL (4.30-6.10); WHITE BLOOD COUNT 7.5 10^3/uL (4.0-10.0)
[2021-01-07 06:58] LABS: BLOOD UREA NITROGEN 20 MG/DL (7-18); CALCIUM LEVEL 8.5 MG/DL (8.8-10.2); CARBON DIOXIDE LEVEL 32 MEQ/L (21-32); CHLORIDE LEVEL 99 MEQ/L (98-107); CREATININE FOR GFR 0.67 MG/DL (0.70-1.30); GLOMERULAR FILTRATION RATE > 60.0 (>35); GLUCOSE, FASTING 134 MG/DL (70-100); POTASSIUM SERUM 4.1 MEQ/L (3.5-5.1); SODIUM LEVEL 135 MEQ/L (136-145)
[2021-01-07] MEDS: HumaLOG INSULIN (NovoLOG) PER UNIT SC SCH ×4 (07:30→21:00)
[2021-01-07] MEDS: traMADol 50 MG TAB PO PRN (07:47)
--- NOTE | 2021-01-07 08:22 | REP ---
INDICATION: SMALL PNEUMOTHORAX CHECK FOR PROGRESSION FALL/RIB FX COMPARISON: 01/06/2021 TECHNIQUE: PA and lateral. FINDINGS: Mediastinum and cardiac silhouette are stable. Lung andrade again demonstrate diffuse chronic interstitial changes superimposed lower lobe infiltrates/atelectasis (right greater than left) and possible small left effusion again noted. A miniscule right apical pneumothorax cannot be excluded. Known right rib fractures remains stable. IMPRESSION: 1. Acute on chronic pleuroparenchymal changes primarily involving the lower lobes (right greater than left) similar to prior examination. 2. Miniscule right apical pneumothorax cannot be excluded. 3. Stable known right rib fractures. <Electronically signed by Ramírez cD > 01/07/21 0807
[2021-01-07] MEDS: RIVAROXABAN 20 MG TAB (XARELTO) PO SCH (08:47)
[2021-01-07] MEDS: FUROSEMIDE 40 MG TAB PO SCH (08:47)
[2021-01-07] MEDS: ACETAMINOPHEN 500 MG TAB PO SCH ×3 (08:48→21:00)
[2021-01-07] MEDS ORDERED: guaiFENesin SYRUP 200 MG/10 ML UDC PO PRN ×2 (09:05→09:10)
--- NOTE | 2021-01-07 09:57 | IPNPDOC ---
Subjective Date Seen The patient was seen on 01/07/21. Subjective Chief Complaint/HPI Mr. Cardenas is an 80 year old male with CAD s/p [place], atrial fibrillation on Xarelto, and DM who had a mechanical fall, then found to have rib fractures and a possible small pneumothorax. This morning, he feels that he has phlegm stuck in his throat. He also tells me that he has trouble swallowing pills. Will order ST to evaluate Objective Physical Examination General Exam: Positive: Alert, Cooperative Eye Exam: Negative: Sclera icteric ENT Exam: Positive: Atraumatic Neck Exam: Positive: Supple Chest Exam: Positive: Clear to auscultation; Negative: Wheezing Heart Exam: Positive: Rate Normal, Irregular Rhythm Abdomen Exam: Positive: Normal bowel sounds, Soft; Negative: Tenderness Extremity Exam: Negative: Edema Neuro Exam: Positive: Normal Speech Psych Exam: Positive: Mental status NL, Mood NL Assessment /Plan Assessment Mr. Cardenas is an 80 year old male with CAD s/p [place], atrial fibrillation on Xarelto, and DM who had a mechanical fall, then found to have rib fractures and a possible small pneumothorax. Patient will be put on a pain control regimen and started on incentive spirometry. Trauma is following and monitoring possible small pneumothorax. Patient is doing okay at room air. Otherwise, ordered for PT/OT. Patient reports phlegm and dysphagia. Will order Mucinex and ST evaluation. Plan/VTE VTE Prophylaxis Ordered?: Yes Plan 1. Traumatic rib fracture -Seen on ribs 7, 8, and 11 -Scheduled acetaminophen 1000mg TID -PRN tramadol for break through pain -Incentive spirometry 2. Right elbow laceration -ER physician, Dr. Freitas placed stitches -There is hematoma, to be monitored 3. Small pneumothorax -Trauma surgeon following, recommendations appreciated -Repeat imaging negative for pneumothorax 4. Chronic combined systolic and diastolic CHF -Echocardiogram 45% in 02/2019 5. Atrial fibrillation -Not in RVR -Continue Xarelto 6. Diabetes mellitus -Continue sliding scale insulin 7. Dysphagia -Patient feels that pills are stuck in his throat -In addition, he feels that he has more chest congestion -Will order for Mucinex and ST evaluation 8. DVT ppx -Xarelto Disposition: Pending pain control and ST VS, I&O, 24H, Fishbone Vital Signs/I&O Vital Signs Date Time Temp Pulse Resp B/P (MAP) Pulse Ox O2 Delivery O2 Flow Rate FiO2 01/07/21 08:17 18 Room Air 01/07/21 06:00 97.5 62 116/65 (82) 94 I&O- Last 24 Hours up to 6 AM 01/07/21 06:00 Intake Total 1130 ml Output Total 350 ml Balance 780 ml Laboratory Data 24H LABS Laboratory Tests 2 01/06/21 12:11: Bedside Glucose (Misc Panel) 246H 01/06/21 17:22: Bedside Glucose (Misc Panel) 124H 01/06/21 20:29: Bedside Glucose (Misc Panel) 158H 01/07/21 05:40: Bedside Glucose (Misc Panel) 113H 01/07/21 06:20: Nucleated Red Blood Cells % (auto) 0.0, Anion Gap 4L, Glomerular Filtration Rate > 60.0, Calcium Level 8.5L CBC/BMP Laboratory Tests 01/07/21 06:20 DEBBIE BLACKWOOD DO Jan 07, 2021 09:56
[2021-01-07] MEDS ORDERED: VARIBAR NECTAR 40% w/v 240ML SUSP BTL As Ordered ONE (13:49)
[2021-01-07] MEDS ORDERED: VARIBAR PUDDING 40% w/v 230ML TUBE As Ordered ONE (13:49)
[2021-01-07] MEDS ORDERED: E-Z-PAQUE 96% w/w SUSP 176GM BTL As Ordered ONE (13:50)
[2021-01-07] MEDS ORDERED: BARIUM SULFATE 700 MG TABLET (E-Z-DISK) As Ordered ONE (13:50)
[2021-01-07 14:00] VITALS: BP 107/65
--- NOTE | 2021-01-07 16:50 | REP ---
INDICATION: Rule out aspiration. COMPARISON: NONE TECHNIQUE: The procedure was performed under the direct supervision of . The procedure was performed with Ruthann Seth from speech pathology present. 5 CC aliquots of thin, pudding and mixed fruit consistency barium was administered. 2.9 minutes of fluoroscopy time was utilized for this procedure. FINDINGS: With pudding consistency barium there is aspiration. There is pooling in the vallecula. After the pudding consistency barium the patient was given a 5 cc aliquots of thin barium to help clear the residual. With this there is laryngeal penetration. A detailed report of this examination will be provided by speech pathology. IMPRESSION: With pudding consistency barium there is aspiration. There is pooling in the vallecula. After the pudding consistency barium the patient was given a 5 cc aliquots of thin barium to help clear the residual. With this there is laryngeal penetration. A detailed report of this examination will be provided by speech pathology. <Electronically signed by Lamin Carias > 01/07/21 0294 <Electronically signed by Mynor Cooney > 01/07/21 [id number]
[2021-01-07 22:00] VITALS: BP 107/64
[2021-01-08] MEDS: traMADol 50 MG TAB PO PRN (05:09)
[2021-01-08 05:52] LABS: HEMATOCRIT 38.3 % (42.0-52.0); HEMOGLOBIN 12.4 g/dl (13.5-17.5); MEAN CORPUSCULAR HEMOGLOBIN 32.6 pg (27.0-33.0); MEAN CORPUSCULAR HGB CONC 32.4 g/dl (32.0-36.5); MEAN CORPUSCULAR VOLUME 100.8 fl (80.0-96.0); PLATELET COUNT, AUTOMATED 115 10^3/uL (150-450); WHITE BLOOD COUNT 8.7 10^3/uL (4.0-10.0)
[2021-01-08 06:00] VITALS: BP 154/84
[2021-01-08 06:13] LABS: BLOOD UREA NITROGEN 15 MG/DL (7-18); CALCIUM LEVEL 8.7 MG/DL (8.8-10.2); CARBON DIOXIDE LEVEL 27 MEQ/L (21-32); CHLORIDE LEVEL 100 MEQ/L (98-107); CREATININE FOR GFR 0.57 MG/DL (0.70-1.30); GLOMERULAR FILTRATION RATE > 60.0 (>35); GLUCOSE, FASTING 145 MG/DL (70-100); POTASSIUM SERUM 4.2 MEQ/L (3.5-5.1); SODIUM LEVEL 131 MEQ/L (136-145)
[2021-01-08] MEDS: FUROSEMIDE 40 MG TAB PO SCH (08:10)
--- NOTE | 2021-01-08 08:25 | REP ---
INDICATION: SMALL PNEUMOTHORAX CHECK FOR PROGRESSION FALL/RIB FX COMPARISON: 01/07/2021 TECHNIQUE: PA and lateral. FINDINGS: Visualized mediastinum and cardiac silhouette are stable. Lung andrade demonstrate stable chronic changes and suspected improved aeration to the right lower lobe. No obvious pneumothorax. Skeletal structures stable. IMPRESSION: Suspected improved aeration to the right lower lobe. No obvious pneumothorax. <Electronically signed by Ramírez Dc > 01/08/21 0853
[2021-01-08] MEDS: HumaLOG INSULIN (NovoLOG) PER UNIT SC SCH ×4 (08:41→20:51)
[2021-01-08] MEDS: RIVAROXABAN 20 MG TAB (XARELTO) PO SCH (08:42)
[2021-01-08] MEDS: ACETAMINOPHEN 500 MG TAB PO SCH ×3 (08:42→20:06)
[2021-01-08] MEDS: LIDOCAINE 5% (LIDODERM) PATCH TD SCH (08:43)
[2021-01-08 14:53] VITALS: BP 114/65
[2021-01-08] MEDS ORDERED: oxyCODONE 5MG TAB PO PRN (16:10)
--- NOTE | 2021-01-08 16:12 | IPNPDOC ---
Subjective Date Seen The patient was seen on 01/08/21. Subjective Chief Complaint/HPI Mr. Cardenas is an 80 year old male with CAD s/p CT, atrial fibrillation on Xarelto, and DM who had a mechanical fall, then found to have rib fractures and a possible small pneumothorax. This morning, he reports rib pain. Added on Lidocaine, but without significant effect. Tramadol was not helpful. Switched tramadol to OxyIR. Patient will need to work with physical therapy to determine disposition. Objective Physical Examination General Exam: Positive: Alert, Cooperative Eye Exam: Negative: Sclera icteric ENT Exam: Positive: Atraumatic Neck Exam: Positive: Supple Chest Exam: Positive: Clear to auscultation; Negative: Wheezing Heart Exam: Positive: Rate Normal, Irregular Rhythm Abdomen Exam: Positive: Normal bowel sounds, Soft; Negative: Tenderness Extremity Exam: Negative: Edema Neuro Exam: Positive: Normal Speech Psych Exam: Positive: Mental status NL, Mood NL Assessment /Plan Assessment Mr. Cardenas is an 80 year old male with CAD s/p CT, atrial fibrillation on Xarelto, and DM who had a mechanical fall, then found to have rib fractures and a possible small pneumothorax. Patient will be put on a pain control regimen and started on incentive spirometry. Trauma is following and monitoring possible small pneumothorax. Patient is doing okay at room air. Otherwise, ordered for PT/OT. Patient reports phlegm and dysphagia. Will order Mucinex and ST evaluation. Plan/VTE VTE Prophylaxis Ordered?: Yes Plan 1. Traumatic rib fracture -Seen on ribs 7, 8, and 11 -Scheduled acetaminophen 1000mg TID -Tramadol was not effective in controlling pain -PRN oxycodone IR for break through pain -Incentive spirometry 2. Right elbow laceration -ER physician, Dr. Freitas placed stitches -There is hematoma, to be monitored 3. Small pneumothorax -Trauma surgeon following, recommendations appreciated -Repeat imaging negative for pneumothorax 4. Chronic combined systolic and diastolic CHF -Echocardiogram 45% in 02/2019 5. Atrial fibrillation -Not in RVR -Continue Xarelto 6. Diabetes mellitus -Continue sliding scale insulin 7. Dysphagia -Patient feels that pills are stuck in his throat -In addition, he feels that he has more chest congestion -Will order for Mucinex and ST evaluation -Barium swallow evaluation worse than prior (2018). 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 Spoke with the ENT office and Dr. Branham's nurse. Recommended outpatient follow up with ENT 8. DVT ppx -Xarelto Disposition: Pending pain control and PT recommendations VS, I&O, 24H, Fishbone Vital Signs/I&O Vital Signs Date Time Temp Pulse Resp B/P (MAP) Pulse Ox O2 Delivery O2 Flow Rate FiO2 01/08/21 14:53 98.4 67 16 114/65 (81) 94 01/08/21 06:00 Room Air I&O- Last 24 Hours up to 6 AM 01/08/21 06:00 Intake Total 940 ml Output Total 475 ml Balance 465 ml Laboratory Data 24H LABS Laboratory Tests 2 01/07/21 16:27: Bedside Glucose (Misc Panel) 237H 01/07/21 19:59: Bedside Glucose (Misc Panel) 215H 01/08/21 05:39: Nucleated Red Blood Cells % (auto) 0.0, Anion Gap 4L, Glomerular Filtration Rate > 60.0, Calcium Level 8.7L 01/08/21 05:51: Bedside Glucose (Misc Panel) 174H 01/08/21 11:56: Ammonia < 10 CBC/BMP Laboratory Tests 01/08/21 05:39 DEBBIE BLACKWOOD DO Jan 08, 2021 16:12
[2021-01-08 17:01] VITALS: BP 115/68
[2021-01-08 19:51] VITALS: BP 123/71
[2021-01-08] MEDS: **NOTE PATIENT COMMENT** MISC XX SCH (20:51)
[2021-01-08 22:00] VITALS: BP 120/71
[2021-01-09] MEDS: MORPHINE 4 MG/ML 1ML VIAL/SYRINGE (J2270) IV PRN ×2 (05:19→09:47)
[2021-01-09 06:00] VITALS: BP 112/61
[2021-01-09 06:22] LABS: HEMATOCRIT 36.7 % (42.0-52.0); HEMOGLOBIN 12.1 g/dl (13.5-17.5); MEAN CORPUSCULAR HEMOGLOBIN 32.8 pg (27.0-33.0); MEAN CORPUSCULAR VOLUME 99.5 fl (80.0-96.0); PLATELET COUNT, AUTOMATED 149 10^3/uL (150-450); RED BLOOD COUNT 3.69 10^6/uL (4.30-6.10); WHITE BLOOD COUNT 6.8 10^3/uL (4.0-10.0)
[2021-01-09 06:41] LABS: BLOOD UREA NITROGEN 15 MG/DL (7-18); CALCIUM LEVEL 8.9 MG/DL (8.8-10.2); CARBON DIOXIDE LEVEL 33 MEQ/L (21-32); CHLORIDE LEVEL 99 MEQ/L (98-107); CREATININE FOR GFR 0.55 MG/DL (0.70-1.30); GLOMERULAR FILTRATION RATE > 60.0 (>35); GLUCOSE, FASTING 152 MG/DL (70-100); POTASSIUM SERUM 4.2 MEQ/L (3.5-5.1); SODIUM LEVEL 137 MEQ/L (136-145)
--- NOTE | 2021-01-09 08:31 | REP ---
INDICATION: SMALL PNEUMOTHORAX CHECK FOR PROGRESSION FALL/RIB FX. COMPARISON: Multiple latest yesterday TECHNIQUE: PA and lateral FINDINGS: Cardiomediastinal silhouette is unchanged. Chronic right basilar opacities and elevation of the diaphragmatic surface of the right lung status quo there is no evidence of a pneumothorax. The osseous structures stable. IMPRESSION: Stable chronic right lung base changes. <Electronically signed by Yong Chowdhury > 01/09/21 0895
[2021-01-09] MEDS: RIVAROXABAN 20 MG TAB (XARELTO) PO SCH (09:19)
[2021-01-09] MEDS: FUROSEMIDE 40 MG TAB PO SCH (09:20)
[2021-01-09] MEDS: LIDOCAINE 5% (LIDODERM) PATCH TD SCH (09:21)
[2021-01-09] MEDS: ACETAMINOPHEN 500 MG TAB PO SCH ×3 (09:21→20:58)
[2021-01-09] MEDS: HumaLOG INSULIN (NovoLOG) PER UNIT SC SCH ×4 (09:22→21:00)
--- NOTE | 2021-01-09 11:50 | IPNPDOC ---
Subjective Date Seen The patient was seen on 01/09/21. Subjective Chief Complaint/HPI Mr. Cardenas is an 80 year old male with CAD s/p [place], atrial fibrillation on Xarelto, and DM who had a mechanical fall, then found to have rib fractures and a possible small pneumothorax. Last night, he required IV morphine to control his pain. He also required IV morphine this morning prior to physical therapy. He was able to do well when pain is controlled. Will increase oxycodone as a replacement to IV morphine. Objective Physical Examination General Exam: Positive: Alert, Cooperative Eye Exam: Negative: Sclera icteric ENT Exam: Positive: Atraumatic Neck Exam: Positive: Supple Chest Exam: Positive: Clear to auscultation; Negative: Wheezing Heart Exam: Positive: Rate Normal, Irregular Rhythm Abdomen Exam: Positive: Normal bowel sounds, Soft; Negative: Tenderness Extremity Exam: Negative: Edema Neuro Exam: Positive: Normal Speech Psych Exam: Positive: Mental status NL, Mood NL Assessment /Plan Assessment Mr. Cardenas is an 80 year old male with CAD s/p [place], atrial fibrillation on Xarelto, and DM who had a mechanical fall, then found to have rib fractures and a possible small pneumothorax. Patient will be put on a pain control regimen and started on incentive spirometry. Trauma is following and monitoring possible small pneumothorax. Patient is doing okay at room air. PT/OT following. Patient reports phlegm and dysphagia. ST following. Plan/VTE VTE Prophylaxis Ordered?: Yes Plan 1. Traumatic rib fracture -Seen on ribs 7, 8, and 11 -Scheduled acetaminophen 1000mg TID -Tramadol was not effective in controlling pain -PRN oxycodone IR for break through pain. Will increase oxycodone and discontinue IV morphine -Incentive spirometry 2. Right elbow laceration -ER physician, Dr. Freitas placed stitches -There is hematoma, to be monitored 3. Small pneumothorax -Trauma surgeon following, recommendations appreciated -Repeat imaging negative for pneumothorax 4. Chronic combined systolic and diastolic CHF -Echocardiogram 45% in 02/2019 5. Atrial fibrillation -Not in RVR -Continue Xarelto 6. Diabetes mellitus -Continue sliding scale insulin 7. Dysphagia -Patient feels that pills are stuck in his throat -In addition, he feels that he has more chest congestion -Will order for Mucinex and ST evaluation -Barium swallow evaluation worse than prior (2018). 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 Spoke with the ENT office and Dr. Branham's nurse. Recommended outpatient follow up with ENT 8. DVT ppx -Xarelto Disposition: Pending pain control. If controlled tomorrow and patient able to move, possible discharge tomorrow. VS, I&O, 24H, Fishbone Vital Signs/I&O Vital Signs Date Time Temp Pulse Resp B/P (MAP) Pulse Ox O2 Delivery O2 Flow Rate FiO2 01/09/21 09:57 18 01/09/21 06:00 98.3 64 112/61 (78) 99 Room Air I&O- Last 24 Hours up to 6 AM 01/09/21 06:00 Intake Total 1110 ml Output Total 250 ml Balance 860 ml Laboratory Data 24H LABS Laboratory Tests 2 01/08/21 11:56: Ammonia < 10 01/08/21 12:04: Bedside Glucose (Misc Panel) 212H 01/08/21 16:59: Bedside Glucose (Misc Panel) 141H 01/08/21 19:54: Bedside Glucose (Misc Panel) 175H 01/08/21 20:07: Bedside Glucose (Misc Panel) 198H 01/09/21 05:54: Nucleated Red Blood Cells % (auto) 0.0, Anion Gap 5L, Glomerular Filtration Rate > 60.0, Calcium Level 8.9 CBC/BMP Laboratory Tests 01/09/21 05:54 DEBBIE BLACKWOOD DO Jan 09, 2021 11:50
[2021-01-09] MEDS: oxyCODONE 5MG TAB PO PRN ×2 (12:53→20:59)
[2021-01-09 14:28] VITALS: BP 134/80
[2021-01-09 20:31] VITALS: BP 111/63
[2021-01-09] MEDS: **NOTE PATIENT COMMENT** MISC XX SCH (20:59)
[2021-01-10 06:18] VITALS: BP 116/68
[2021-01-10 06:22] LABS: HEMATOCRIT 33.9 % (42.0-52.0); MEAN CORPUSCULAR HEMOGLOBIN 32.3 pg (27.0-33.0); MEAN CORPUSCULAR HGB CONC 32.4 g/dl (32.0-36.5); MEAN CORPUSCULAR VOLUME 99.4 fl (80.0-96.0); PLATELET COUNT, AUTOMATED 138 10^3/uL (150-450); RED BLOOD COUNT 3.41 10^6/uL (4.30-6.10); WHITE BLOOD COUNT 5.3 10^3/uL (4.0-10.0)
[2021-01-10 06:42] LABS: BLOOD UREA NITROGEN 16 MG/DL (7-18); CALCIUM LEVEL 8.5 MG/DL (8.8-10.2); CARBON DIOXIDE LEVEL 33 MEQ/L (21-32); CHLORIDE LEVEL 99 MEQ/L (98-107); CREATININE FOR GFR 0.54 MG/DL (0.70-1.30); GLOMERULAR FILTRATION RATE > 60.0 (>35); GLUCOSE, FASTING 174 MG/DL (70-100); POTASSIUM SERUM 4.2 MEQ/L (3.5-5.1); SODIUM LEVEL 137 MEQ/L (136-145)
[2021-01-10] MEDS: oxyCODONE 5MG TAB PO PRN (07:53)
[2021-01-10] MEDS: HumaLOG INSULIN (NovoLOG) PER UNIT SC SCH ×2 (08:22→12:56)
[2021-01-10] MEDS: LIDOCAINE 5% (LIDODERM) PATCH TD SCH (08:22)
[2021-01-10] MEDS: ACETAMINOPHEN 500 MG TAB PO SCH (08:23)
[2021-01-10] MEDS: FUROSEMIDE 40 MG TAB PO SCH (08:24)
[2021-01-10] MEDS: RIVAROXABAN 20 MG TAB (XARELTO) PO SCH (08:24)
--- NOTE | 2021-01-10 10:11 | REP ---
INDICATION: right unilateral swelling COMPARISON: None. TECHNIQUE: Vazquez scale and color Doppler evaluation using linear high frequency transducer. FINDINGS: Ultrasound examination of the right upper extremity including jugular, subclavian, axillary, brachial, basilic, and cephalic veins demonstrate normal compressibility, flow and wave patterns without evidence for deep venous thrombosis. Contralateral subclavian vein is patent and normal. IMPRESSION: No evidence for deep venous thrombosis. <Electronically signed by Ramírez Dc > 01/10/21 1007
[2021-01-10] MEDS ORDERED: OXYC10TA12 PO (11:36)
[2021-01-10] MEDS ORDERED: DOCU-153 PO (11:36)
[2021-01-10] MEDS ORDERED: ACET-683 PO (11:36)
--- NOTE | 2021-01-10 18:16 | DS.PDOC ---
Discharge Summary General Date of Admission Jan 05, 2021 at 16:05 Date of Discharge Jan 10, 2021 Specialist/Consultants Involve Trauma Surgery, Dr. Urbano Discharge Summary PROCEDURES PERFORMED DURING STAY: None ADMITTING DIAGNOSES: 1. Traumatic rib fracture 2. Right elbow laceration 3. Possible miniscule pneumothorax 4. Chronic combined systolic and diastolic CHF 5. Atrial fibrillation 6. Diabetes mellitus DISCHARGE DIAGNOSES: 1. Traumatic rib fracture 2. Right elbow laceration 3. Possible miniscule pneumothorax 4. Chronic combined systolic and diastolic CHF 5. Atrial fibrillation 6. Diabetes mellitus COMPLICATIONS/CHIEF COMPLAINT: Ribs, Multiple Fractures. HISTORY OF PRESENT ILLNESS: Copied from admitting provider's H&P " An 80-year-old, DO NOT RESUSCITATE, DO NOT INTUBATE male with history of chronic systolic and diastolic congestive heart failure, ejection fraction of 45%, chronic atrial fibrillation, has been having episodes of bradycardia and recently had a Holter monitor placed about 1-1/2 months ago, had been having shortness of breath and fluid buildup according to the son. The Holter monitor was removed about 4-5 days ago and the son was supposed to bring this to Dr. Jorge' office for review when patient presented today to the emergency room after a traumatic injury when he was in his tractor, fell off, landed on his elbow and right-sided ribs after he was trying to put gas on it around 12:30 noon today. The patient does not remember any head trauma, no loss of consciousness. He otherwise did not have any palpitations, lightheadedness, dizziness, near syncopal episode. He felt about 2-3 days ago when his heart rate was 56 but his legs were tingly but none today. The patient otherwise denies any shortness of breath today, a feeling of epigastric discomfort, nausea, vomiting, chest pressure, tightness or any radiation up the neck and down the left arm. He was found to have a right elbow contusion and laceration, pulmonary contusion, multiple rib fractures, 7, 8 and 11, nondisplaced and a very small pneumothorax. Per Dr. Urbano, trauma surgeon avionics integration engineer, the patient is to be admitted for further observation. He may be resumed back on his chronic Xarelto despite small confusion. The patient otherwise had no other traumatic injuries. CT, chest, abdomen, pelvis, cervical spine, CT, head have all been reviewed. Hospitalist service was asked to admit the patient for pain control, ARU evaluation as well as monitoring for the pneumothorax and right lower lobe pulmonary contusion. " HOSPITAL COURSE: Trauma surgery (Dr. Urbano) evaluated patient and the next 2 view CXR. As it was stable, patient was ready for discharge from their [facility]. Recommended pain control and IS. Patient did have repeat 2 view CXR which have been negative for the 5 days. We worked on controlling patient's pain with scheduled acetaminophen (1000mg TID) and PRN tramadol. This pain regimen did not control pain and patient was not able to work with PT. Pain regimen continued to escalate. Scheduled acetamionphen 1000mg TID and OxyIR 10mg q6h prn pain helped control pain for patient to ambulate. Otherwise, patient has dysphagia and had trouble swallowing food. Speech/swallow therapy was consulted. Ordered for modified cookie swallow test which demonstrated patient's dysphagia has worsened since 2018. Due to patient's history of cricopharyngeal hypertrophy s/p cricopharyngeal myotomy, I reached out to ENT. Since it was not emergent, ENT avionics integration engineer (Dr. Mendez) recommended I contact patient's ENT surgeon, Dr. Branham. Unfortunately, Dr. Branham was out of office until January 19. Otherwise today, patient's pain was controlled. He cleared physical therapy. He felt ready for home and was subsequently discharged home. DISCHARGE MEDICATIONS: Please see below. ALLERGIES: Please see below. PHYSICAL EXAMINATION ON DISCHARGE: VITAL SIGNS: Please see below. GENERAL: Comfortable, in no apparent distress. HEENT: EOMI, sclera clear. NECK: Supple. RESPIRATORY: Lungs clear to auscultation bilaterally, no rales, wheeze or rhonchi. CARDIOVASCULAR: Regular rate and irregular rhythm. ABDOMEN: Soft, nontender, no guarding or rebound tenderness. Normal bowel sounds. MUSCLE SKELETAL: Negative pitting edema. PSYCHOLOGICAL: Normal mood and affect LABORATORY DATA: Please see below. IMAGING: Radiologist interpretation CT chest without contrast (on 01/05/21) 1. Right-sided rib fractures with small adjacent pleural effusion, possible miniscule pneumothorax, and right lower lobe early pulmonary parenchymal contusion. 2. 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 3. Chronic pleuroparenchymal changes. 2view CXR (on 01/09/21) Cardiomediastinal silhouette is unchanged. Chronic right basilar opacities and elevation of the diaphragmatic surface of the right lung status quo there is no evidence of a pneumothorax. The osseous structures stable. Modified barium swallow With pudding consistency barium there is aspiration. There is pooling in the vallecula. After the pudding consistency barium the patient was given a 5 cc aliquots of thin barium to help clear the residual. With this there is laryngeal penetration. A detailed report of this examination will be provided by speech pathology. PROGNOSIS: Good ACTIVITY: As tolerated. DIET: Soft mechanical, carbohydrate consistent diet DISCHARGE PLAN: Home health DISPOSITION: 06 Home Health Service. DISCHARGE INSTRUCTIONS: 1. Follow up with PCP within 1 week ITEMS TO FOLLOWUP ON ON OUTPATIENT: 1. Consider re-evaluation from ENT for worsening dysphagia. DISCHARGE CONDITION: Stable Total time spent on discharge planning, discharge summary, and medication reconciliation: 55 minutes Vital Signs/I&Os Vital Signs Date Time Temp Pulse Resp B/P (MAP) Pulse Ox O2 Delivery O2 Flow Rate FiO2 01/10/21 08:23 18 01/10/21 06:18 97.5 74 116/68 (84) 96 Room Air I&O- Last 24 Hours up to 6 AM 01/10/21 06:00 Intake Total 1380 ml Output Total 0 ml Balance 1380 ml Laboratory Data Labs 24H Laboratory Tests 2 01/10/21 06:05: Nucleated Red Blood Cells % (auto) 0.0, Anion Gap 5L, Glomerular Filtration Rate > 60.0, Calcium Level 8.5L CBC/BMP Laboratory Tests 01/10/21 06:05 Discharge Medications Scheduled Acetaminophen (Acetaminophen) 500 Mg Tablet, 1,000 MG PO TID Docusate Sodium (Stool Softener) 100 Mg Capsule, 100 MG PO BID Furosemide (Furosemide) 40 Mg Tablet, 40 MG PO DAILY, (Reported) Glimepiride (Glimepiride) 1 Mg Tablet, 1 MG PO DAILY, (Reported) Metformin HCl (Metformin HCl ER) 500 Mg Tab.er.24h, 500 MG PO BID, (Reported) Potassium Citrate (Potassium Citrate 10MEQ (Urocit-K)) 10 Meq Tablet.er, 1,080 MG PO DAILY, (Reported) 1080MG = 10MEQ Rivaroxaban (Xarelto) 20 Mg Tablet, 20 MG PO DAILY, (Reported) Scheduled PRN Oxycodone HCl (Oxycodone HCl) 10 Mg Tablet, 10 MG PO Q6HP PRN for pain Allergies Coded Allergies: amoxicillin (Verified Allergy, Intermediate, unk, 11/15/19) pt states had unknown reaction from past DEBBIE BLACKWOOD DO Jan 10, 2021 18:16
== END 2021-01-10 15:02 | disposition home health service (06) | DRG 184 ==
LOC: M ED 13:48 → M ED INP 16:05 → ENRESERV 17:30 → M MS5PR 18:55
PROVIDERS: ADMIT General Practice; ATTEND Internal Medicine
DX: S22.41XA Multiple fractures of ribs, right side, initial encounter for closed fracture (principal); I50.42 Chronic combined systolic (congestive) and diastolic (congestive) heart failure; I48.20 Chronic atrial fibrillation, unspecified; I11.0 Hypertensive heart disease with heart failure; E11.9 Type 2 diabetes mellitus without complications; I71.2 Thoracic aortic aneurysm, without rupture; I44.0 Atrioventricular block, first degree; K21.9 Gastro-esophageal reflux disease without esophagitis; H91.93 Unspecified hearing loss, bilateral; M48.061 Spinal stenosis, lumbar region without neurogenic claudication; V84.4XXA Person injured while boarding or alighting from special agricultural vehicle, initial encounter; Z66 Do not resuscitate; Y93.89 Activity, other specified; Y92.89 Other specified places as the place of occurrence of the external cause; Y99.8 Other external cause status; Z79.01 Long term (current) use of anticoagulants; Z79.84 Long term (current) use of oral hypoglycemic drugs; Z79.899 Other long term (current) drug therapy; Z88.0 Allergy status to penicillin; S50.01XA Contusion of right elbow, initial encounter; S51.011A Laceration without foreign body of right elbow, initial encounter; I25.10 Atherosclerotic heart disease of native coronary artery without angina pectoris; I25.2 Old myocardial infarction; R13.10 Dysphagia, unspecified; Z95.5 Presence of coronary angioplasty implant and graft; Z87.891 Personal history of nicotine dependence

== ENCOUNTER → 2021-01-15 | Outpatient (CLI) | payer OTHER, MEDICAID ==
[~2021-01-15] MED LIST changes: +ACET-683 PO; +DOCU-153 PO; +OXYC10TA12 PO
--- NOTE | 2021-01-15 12:10 | REP ---
INDICATION: I50.9, CONGESTIVE HEART FAILURE COMPARISON: 01/09/2021 TECHNIQUE: PA and lateral. FINDINGS: Visualized mediastinum and cardiac silhouette are stable and within normal limits. Left hemithorax is clear. Right hemithorax demonstrates chronic elevation to the right hemidiaphragm with chronic pleuroparenchymal changes. No evidence for pneumothorax. Subtle superimposed right basilar infiltrate/atelectasis cannot be excluded and should be correlated with auscultation and physical examination. Skeletal structures stable. Nondisplaced right lateral lower rib fracture again noted. IMPRESSION: Relatively stable chronic changes. Cannot exclude subtle right basilar atelectasis. <Electronically signed by Ramírez Dc > 01/15/21 [id number]
== END ==
LOC: M CLY 11:42
PROVIDERS: ATTEND Family Medicine
DX: I50.9 Heart failure, unspecified (principal)

== ENCOUNTER → 2021-02-02 | Outpatient (REF) | payer OTHER, MEDICAID ==
[2021-02-02 16:24] LABS: HEMATOCRIT 38.4 % (42.0-52.0); HEMOGLOBIN 12.4 g/dl (13.5-17.5); MEAN CORPUSCULAR HEMOGLOBIN 32.1 pg (27.0-33.0); MEAN CORPUSCULAR HGB CONC 32.3 g/dl (32.0-36.5); MEAN CORPUSCULAR VOLUME 99.5 fl (80.0-96.0); PLATELET COUNT, AUTOMATED 149 10^3/uL (150-450); RED BLOOD COUNT 3.86 10^6/uL (4.30-6.10); WHITE BLOOD COUNT 5.6 10^3/uL (4.0-10.0)
[2021-02-02 16:41] LABS: BLOOD UREA NITROGEN 18 MG/DL (7-18); CALCIUM LEVEL 8.8 MG/DL (8.8-10.2); CARBON DIOXIDE LEVEL 37 MEQ/L (21-32); CHLORIDE LEVEL 100 MEQ/L (98-107); CREATININE FOR GFR 0.73 MG/DL (0.70-1.30); GLOMERULAR FILTRATION RATE > 60.0 (>35); GLUCOSE, FASTING 198 MG/DL (70-100); POTASSIUM SERUM 4.2 MEQ/L (3.5-5.1); SODIUM LEVEL 139 MEQ/L (136-145)
== END ==
LOC: M SFHCCLAY 10:43
PROVIDERS: ATTEND Family Medicine
DX: E78.2 Mixed hyperlipidemia (principal); I10 Essential (primary) hypertension; E11.9 Type 2 diabetes mellitus without complications

== ENCOUNTER → 2021-03-05 | Outpatient (REF) | payer OTHER, MEDICAID ==
[2021-03-05 17:11] LABS: BLOOD UREA NITROGEN 19 MG/DL (7-18); CALCIUM LEVEL 8.7 MG/DL (8.8-10.2); CARBON DIOXIDE LEVEL 32 MEQ/L (21-32); CHLORIDE LEVEL 102 MEQ/L (98-107); GLOMERULAR FILTRATION RATE > 60.0 (>35); GLUCOSE, FASTING 159 MG/DL (70-100); MAGNESIUM LEVEL 1.8 MG/DL (1.8-2.4); SODIUM LEVEL 137 MEQ/L (136-145)
== END ==
LOC: M LABDRAWC 15:30
PROVIDERS: ATTEND Physician Assistant
DX: I50.42 Chronic combined systolic (congestive) and diastolic (congestive) heart failure (principal)

== ENCOUNTER → 2021-04-02 | Outpatient (CLI) | payer OTHER, MEDICAID ==
--- NOTE | 2021-04-06 18:09 | SLEEPHOME ---
DATE: 04/02/2021 ORDERED BY: YVETTE CARSON Diagnostic home sleep testing was performed due to concern for the obstructive sleep apnea syndrome in this patient with a history of sick sinus syndrome. For testing, a nocturnal T3 respiratory monitoring device was used. Continuous record was made of pulse, oxygen saturation, air flow, chest and abdominal strain, and body position. Nine hours and 59 minutes of data were reviewed. There were 7 hours and 1 minute marked as time in bed. During the interval marked time in bed, there were 283 respiratory events identified of 10 seconds in duration or greater for a respiratory event index of 40.3. The events were primarily obstructive. The patient's baseline pulse rate was 63. Pulse rate ranged from 40 to 95. Baseline saturation was 89%. Saturations fell to 70%. Testing was performed in both the supine and nonsupine positions. IMPRESSION: Abnormal home sleep testing with repetitive respiratory events and oxygen desaturations to 70% with a respiratory event index of 40.3 is consistent with the obstructive sleep apnea syndrome. RECOMMENDATION: The patient should be encouraged to undergo a formal sleep evaluation.
== END ==
LOC: M SLEEP HO 10:28
PROVIDERS: ATTEND Physician Assistant
DX: I49.5 Sick sinus syndrome (principal)

== ENCOUNTER → 2021-05-14 | Outpatient (REF) | payer OTHER, MEDICAID ==
[~2021-05-14] MED LIST changes: -CEFD1CAP8 PO; +CEFD300C41 PO
[2021-05-14 11:45] LABS: BASO % 0.7 % (0.0-1.0); EOS # 0.2 10^3/uL (0.0-0.5); EOS % 3.8 % (0.0-3.0); HEMATOCRIT 42.8 % (42.0-52.0); HEMOGLOBIN 13.6 g/dl (13.5-17.5); LYMPH # 1.9 10^3/uL (1.5-5.0); LYMPH % 31.5 % (24.0-44.0); MEAN CORPUSCULAR HEMOGLOBIN 31.1 pg (27.0-33.0); MEAN CORPUSCULAR HGB CONC 31.8 g/dl (32.0-36.5); MEAN CORPUSCULAR VOLUME 97.7 fl (80.0-96.0); MONO # 0.5 10^3/uL (0.0-0.8); MONO % 8.3 % (2.0-8.0); NEUTROPHILS # 3.4 10^3/uL (1.5-8.5); NEUTROPHILS % 55.4 % (36.0-66.0); PLATELET COUNT, AUTOMATED 165 10^3/uL (150-450); RED BLOOD COUNT 4.38 10^6/uL (4.30-6.10)
[2021-05-14 12:19] LABS: ALBUMIN 4.1 GM/DL (3.2-5.2); ALT/SGPT 26 U/L (12-78); BILIRUBIN,TOTAL 1.1 MG/DL (0.2-1.0); BLOOD UREA NITROGEN 15 MG/DL (7-18); CALCIUM LEVEL 9.4 MG/DL (8.8-10.2); CARBON DIOXIDE LEVEL 35 MEQ/L (21-32); CHLORIDE LEVEL 96 MEQ/L (98-107); CHOLESTEROL LEVEL 218 MG/DL (<200); CHOLESTEROL RISK RATIO 3.963 (<5); CREATININE FOR GFR 0.86 MG/DL (0.70-1.30); GLOMERULAR FILTRATION RATE > 60.0 (>35); GLUCOSE, FASTING 221 MG/DL (70-100); HDL CHOLESTEROL 55 MG/DL (>40); IRON (FE) 118 UG/DL (65-175); LDL CHOLESTEROL 141 MG/DL (<100); NON-HDL-C 163 MG/DL; POTASSIUM SERUM 4.6 MEQ/L (3.5-5.1); SODIUM LEVEL 138 MEQ/L (136-145); TOTAL PROTEIN 7.3 GM/DL (6.4-8.2); TRIGLYCERIDES LEVEL 110 MG/DL (<150)
[2021-05-14 12:55] LABS: HEMOGLOBIN A1c 9.7 %
== END ==
LOC: M SFHCCLAY 08:12
PROVIDERS: ATTEND Family Medicine
DX: E11.65 Type 2 diabetes mellitus with hyperglycemia (principal); D64.9 Anemia, unspecified
CPT/HCPCS: 80053; 80061; 83036; 83540; 85025; G0463

== ENCOUNTER → 2021-09-08 | Outpatient (REF) | payer OTHER, MEDICAID ==
[2021-09-08 17:36] LABS: BLOOD UREA NITROGEN 17 MG/DL (7-18); CALCIUM LEVEL 8.8 MG/DL (8.8-10.2); CARBON DIOXIDE LEVEL 35 MEQ/L (21-32); CHLORIDE LEVEL 97 MEQ/L (98-107); CREATININE FOR GFR 0.88 MG/DL (0.70-1.30); GLOMERULAR FILTRATION RATE > 60.0 (>35); GLUCOSE, FASTING 275 MG/DL (70-100); MAGNESIUM LEVEL 1.5 MG/DL (1.8-2.4); POTASSIUM SERUM 5.1 MEQ/L (3.5-5.1); SODIUM LEVEL 136 MEQ/L (136-145)
== END ==
LOC: M LABDRAWC 15:38
PROVIDERS: ATTEND Physician Assistant
DX: I50.42 Chronic combined systolic (congestive) and diastolic (congestive) heart failure (principal)

== ENCOUNTER → 2021-09-08 | Outpatient (REF) | payer OTHER, MEDICAID ==
[2021-09-08 17:46] LABS: ALBUMIN 3.6 GM/DL (3.2-5.2); ALT/SGPT 20 U/L (12-78); BILIRUBIN,TOTAL 0.6 MG/DL (0.2-1.0); BLOOD UREA NITROGEN 16 MG/DL (7-18); CALCIUM LEVEL 8.6 MG/DL (8.8-10.2); CARBON DIOXIDE LEVEL 35 MEQ/L (21-32); CHLORIDE LEVEL 97 MEQ/L (98-107); CREATININE FOR GFR 0.88 MG/DL (0.70-1.30); GLOMERULAR FILTRATION RATE > 60.0 (>35); GLUCOSE, FASTING 269 MG/DL (70-100); SODIUM LEVEL 134 MEQ/L (136-145); TOTAL PROTEIN 6.9 GM/DL (6.4-8.2)
[2021-09-08 18:15] LABS: HEMOGLOBIN A1c 8.9 %
== END ==
LOC: M SFHCCLAY 10:00
PROVIDERS: ATTEND Family Medicine
DX: E11.65 Type 2 diabetes mellitus with hyperglycemia (principal)

== ENCOUNTER → 2021-11-13 | Outpatient (REF) | payer OTHER, MEDICAID ==
[2021-11-13 15:46] LABS: BASO % 0.5 % (0.0-1.0); EOS # 0.2 10^3/uL (0.0-0.5); HEMATOCRIT 41.4 % (42.0-52.0); HEMOGLOBIN 13.8 g/dl (13.5-17.5); LYMPH % 29.9 % (24.0-44.0); MEAN CORPUSCULAR HGB CONC 33.3 g/dl (32.0-36.5); MONO # 0.7 10^3/uL (0.0-0.8); MONO % 10.2 % (2.0-8.0); NEUTROPHILS # 3.7 10^3/uL (1.5-8.5); NEUTROPHILS % 56.1 % (36.0-66.0); PLATELET COUNT, AUTOMATED 151 10^3/uL (150-450); RED BLOOD COUNT 4.18 10^6/uL (4.30-6.10); WHITE BLOOD COUNT 6.6 10^3/uL (4.0-10.0)
[2021-11-13 16:13] LABS: ALBUMIN 4.1 GM/DL (3.2-5.2); ALT/SGPT 22 U/L (12-78); BILIRUBIN,TOTAL 0.5 MG/DL (0.2-1.0); BLOOD UREA NITROGEN 26 MG/DL (7-18); CALCIUM LEVEL 9.6 MG/DL (8.8-10.2); CARBON DIOXIDE LEVEL 36 MEQ/L (21-32); CHLORIDE LEVEL 99 MEQ/L (98-107); CREATININE FOR GFR 0.71 MG/DL (0.70-1.30); GLOMERULAR FILTRATION RATE > 60.0 (>35); GLUCOSE, FASTING 161 MG/DL (70-100); POTASSIUM SERUM 4.4 MEQ/L (3.5-5.1); SODIUM LEVEL 140 MEQ/L (136-145); TOTAL PROTEIN 7.1 GM/DL (6.4-8.2)
[2021-11-13 16:23] LABS: MAU/CREAT RATIO 28.6 MCG/MG (0.0-30.0)
== END ==
LOC: M SFHCCLAY 13:31
PROVIDERS: ATTEND Family Medicine
DX: E11.65 Type 2 diabetes mellitus with hyperglycemia (principal); D64.9 Anemia, unspecified

== ENCOUNTER → 2021-12-15 | Outpatient (REF) | payer OTHER, MEDICAID ==
[2021-12-15 16:02] LABS: BLOOD UREA NITROGEN 19 MG/DL (7-18); CALCIUM LEVEL 9.2 MG/DL (8.8-10.2); CARBON DIOXIDE LEVEL 37 MEQ/L (21-32); CHLORIDE LEVEL 99 MEQ/L (98-107); CREATININE FOR GFR 0.77 MG/DL (0.70-1.30); GLOMERULAR FILTRATION RATE > 60.0 (>35); GLUCOSE, FASTING 160 MG/DL (70-100); MAGNESIUM LEVEL 2.2 MG/DL (1.8-2.4); POTASSIUM SERUM 4.6 MEQ/L (3.5-5.1); SODIUM LEVEL 140 MEQ/L (136-145)
== END ==
LOC: M LABDRAWC 15:35
PROVIDERS: ATTEND Physician Assistant
DX: I50.42 Chronic combined systolic (congestive) and diastolic (congestive) heart failure (principal)